=== PATIENT | female | born 1950 | race Caucasian/White ===

== ENCOUNTER 2018-08-18 00:48 | Outpatient (CLI) | payer MEDICARE, BC, SELFPAY ==
--- NOTE | 2018-08-18 13:02 | DI.RAD_ITS ---
SYMPTOMS/DIAGNOSIS: CHRONIC RT HIP PAIN, M25.551 RIGHT HIP AND PELVIS: Two views were obtained. There is virtually complete loss of the cartilaginous joint space of the right hip superiorly with marked subchondral sclerosis and cyst formation of the femoral head and acetabulum and flattening of the femoral head. CONCLUSION: Endstage DJD right hip. Mild DJD of the left hip noted as well.
== END 2018-08-18 01:08 ==
PROVIDERS: PCP Nurse Practitioner Family; Visit Provider Family Medicine
DX: M25.551 Pain in right hip (principal); M16.11 Unilateral primary osteoarthritis, right hip
CPT/HCPCS: 73502

== ENCOUNTER 2018-09-14 08:34 | Outpatient (CLI) | payer MEDICARE, BC, SELFPAY ==
--- NOTE | 2018-09-14 08:25 | DI.RAD_ITS ---
SYMPTOMS/DIAGNOSIS: OSTEOARTHRITIS, RIGHT HIP RIGHT HIP: A single view was obtained. There is loss of cartilaginous joint space superiorly with mildly laterally subluxed femoral head and marked subchondral sclerosis, cyst formation and deformity of the acetabulum and femoral head. CONCLUSION: Endstage DJD, right hip.
== END 2018-09-14 08:54 ==
PROVIDERS: PCP Nurse Practitioner Family; Referring Provider Nurse Practitioner Family; Visit Provider Student in an Organized Health Care Education/Training Program
DX: M25.551 Pain in right hip (principal); M16.11 Unilateral primary osteoarthritis, right hip
CPT/HCPCS: 99204; 99214; 73501

== ENCOUNTER 2018-10-12 09:39 | Outpatient (CLI) | payer MEDICARE, BC, SELFPAY ==
--- NOTE | 2018-10-12 11:28 | HPE_ITS ---
Assessment and Plan (1) Primary osteoarthritis of right hip: Current visit: Yes Status: Chronic Plan: Patient reported different leg lengths which was discussed with Dr. Talbot. Dr. Talbot educated patient he will attempt to length her right leg, however posterior approach makes leg lengthening more difficult to complete and is not guaranteed to provide complete resolution of leg length discrepancies. Patient will undergo right total hip replacement via posterior approach due to body habitus. Patient previously had x-rays with mag marker completed and therefore does not require additional x-rays for preoperative planning at today's visit. Discussed surgery including surgical technique, pertinent anatomy, benefits and risks including but not limited to risk of infection, blood clot, discrepancy in leg lengths, hip dislocation and damage to soft tissue/nerve/blood vessels with patient in detail. After discussion patient elects to continue to proceed with scheduling surgery. Educated patient on the risk of canceling surgery due to sores in the gluteal crease. Lesions will be assessed prior to surgery, if any lesions are open surgery will be cancelled. Patient understands and is agreeable to plan. She had opportunity to have questions answered to her satisfaction. Patient will take aspirin for DVT prophylaxis. Labs are pending at time of dictation. Patient will continue to be scheduled for right total hip replacement via posterior approach with Dr. Talbot on 10/21/18. (2) Hip pain, right: Current visit: Yes Status: Chronic (3) Psoriasis: Current visit: Yes Status: Chronic History of Present Illness Narrative: Ms. Chand is a 68-year-old female who presents to clinic with her niece Jes for preoperative visit for scheduled right ADELSO with Dr. Talbot on October 21, 2018. Patient reports started developing right hip pain greater than 3 years ago. Patient was initially referred to physical therapy where she was taught exercises and transition to home program that she continued to do regularly until summer 2017. Patient denies known injury but describes worse sherry right hip pain and feeling that the hip was letting go in February 2018. She continued to get a sharp stabbing sensation in the anterior aspect of her groin that is aggravated by walking. Patient reports she used to walk regularly and now has difficulty walking even a short distance. She continues to ambulate with a walker when at home and a cane when out of the house but describes walking slo wer due to pain. Patient also reports bilateral knee aching that has worsened since summer 2017. Pain is currently managed by meloxicam twice daily and Tylenol as needed which provides slight pain alleviation. 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 Denies any change in her right hip pain following injury. Denies falling directly on the hip. Previous x-rays with mag marker reveal right hip [id number] articulation, sclerosis, subchondral cysts as well as deformity of the acetabulum and femoral head as per Dr. Ivana zaman. Findings are consistent with severe DJD of the right hip. Pertinent Surgical Information Patient has long-standing history of psoriasis describes noticing itchy sensation within her gluteus crease approximately 1 month ago. Patient describes waking up in the morning to area of skin being open due to scratching throughout the night. Patient denies scratching the area during the day. She denies noticing discharge or blood. Patient denies any pain in that area. Patient has several year history of occasional episodes of diarrhea accompanied by occasional incontinence. Patient reports she does not experience abdominal pain with episodes of diarrhea. She denies any recent change in stool, last episode of diarrhea was greater than 1 week ago. Denies hematochezia, melena or mucus in stool. Denies past medical history of: stroke, cardiac issues, angina, asthma, COPD, sleep apnea, renal issues, liver issues, hepatitis, ulcers, bleeding disorders, seizures, migraines, anxiety, thyroid issues Denies prior complications from surgery or anesthesia. Review of Systems Constitutional Denies fever(s), Denies frequent falls and Denies headache(s) Eyes Denies change in vision ENT Denies dental pain, Denies dizziness, Denies headache(s), Denies epistaxis, Denies nasal congestion, Reports nasal discharge (Occasional clear nasal discharge based on environment due to allergies), Denies sinus pain and Denies sore throat Cardiovascular Denies chest pain, Denies rapid heart rate, Denies irregular heart rhythm, Denies dyspnea, Denies dyspnea on exertion and Denies slow heart rate Respiratory Denies dyspnea, Denies dyspnea on exertion and Denies wheezing Gastrointestinal Denies abdominal pain, Denies melena, Denies hematochezia, Denies constipation, Reports diarrhea, Denies nausea and Denies vomiting Genitourinary Denies hematuria, Denies dysuria and Denies urinary urgency Musculoskeletal Reports as per HPI, Denies numbness and Denies tingling Neurologic Denies dizziness, Denies frequent falls, Denies headache(s), Denies numbness and Denies tingling Psychiatric Denies anxiety and Reports depression Allergic/Immunologic Denies wheezing PFSH Medical History Psoriasis (Chronic) Primary osteoarthritis of right hip (Chronic) Hip pain, right (Chronic) Osteoarthritis (Acute 04/18/14) Obesity (Acute) Hyperlipidemia (Acute) Gout (Acute) GERD (gastroesophageal reflux disease) (Acute) Essential tremor (Acute 02/24/17) Essential hypertension (Acute) Depressive disorder (Acute) Allergic rhinitis (Acute 07/08/15) Surgical History Cholecystectomy Open Carpal Tunnel release Family History Mother Essential hypertension Hyperlipidemia Dementia Father Essential hypertension Dementia Sister Depression Hyperlipidemia Sister Essential hypertension Brother Essential hypertension Brother Essential hypertension Heart disease Hyperlipidemia Myocardial infarction Grandfather Essential hypertension Heart disease Stroke Grandfather Heart disease Grandmother Mental disorder Grandmother Phlebitis Social History Smoking/Tobacco Use Status: Never Meds Home Medications Medication Instructions Recorded Confirmed Type clobetasol 1 ann TOPICAL PRN script 02/14/14 10/12/18 History desonide 15 gm TOPICAL DAILY PRN script 01/01/15 09/14/18 History calcium carbonate 1,200 mg PO DAILY tab.chew 01/12/17 10/12/18 History multivitamin [One Daily 1 ea PO DAILY 01/12/17 10/12/18 History Multivitamin] allopurinol 100 mg PO DAILY #90 tab-cap 01/13/18 10/12/18 Rx fluoxetine 10 mg PO DAILY #90 tab-cap 01/13/18 10/12/18 Rx fluticasone 50 mcg NS BID #1 bottle 01/17/18 09/14/18 Rx meloxicam 1 tab PO BID #180 tab-cap 01/17/18 10/12/18 Rx omeprazole 20 mg PO DAILY #90 tab-cap 01/17/18 10/12/18 Rx lisinopril 10 mg PO DAILY #90 tab-cap 04/12/18 10/12/18 Rx turmeric root extract 538 mg 1,076 mg PO DAILY cap 08/17/18 09/14/18 History capsule acetaminophen 650 mg PO Q6H PRN 10/12/18 10/12/18 History atorvastatin 40 mg PO HS 10/12/18 10/12/18 History metoprolol tartrate 50 mg PO DAILY 10/12/18 10/12/18 History metoprolol tartrate [Lopressor] 100 mg PO HS 10/12/18 10/12/18 History Allergies Allergy/AdvReac Type Severity Reaction Status Date / Time Penicillins Allergy Intermediate Rash Unverified 10/12/18 12:20 Sulfa (Sulfonamide Allergy Intermediate Skin Rash Unverified 10/12/18 12:20 Antibiotics) Tetanus Vaccines and Toxoid Allergy Intermediate Localized Unverified 10/12/18 12:20 reaction Rash tetracycline Allergy Intermediate Skin Rash Unverified 10/12/18 12:20 nickel Allergy Mild Other (See Verified 10/12/18 12:20 Comment) Exam Const General: cooperative and no acute distress Nutritional Appearance: obese Other: Patient ambulates slowly with cane HENMT Head: normal to inspection, normocephalic and atraumatic Ears: external ears normal General nose exam: external nose normal and no nasal discharge Face and sinus: face symmetric Mouth: oral mucosae normal, lip normal, tongue normal and moist mucous membranes Teeth and gingiva: fair dentition Throat: posterior oropharynx normal Eyes General: appearance normal, both eyes and all related structures Pupils: PERRL EOM: EOM intact bilaterally Neck Neck: trachea midline Carotids: normal carotid upstroke Lymphatic: no lymphadenopathy noted Resp Effort & Inspection: normal respiratory effort and able to speak in complete sentences Auscultation: clear to auscultation bilaterally, no rales, no rhonchi and no wheezes Cardio Heart Sounds: S1 normal, S2 normal, no murmurs, no rubs and no other Pulses: radial pulses present bilaterally GI Inspection: large pannus and obesity Palpation: soft, no hepatosplenomegaly and nontender Auscultation: normal bowel sounds Skin General skin exam: excoriation(s) (Scabs and excoriations noted within gluteal c rease) Rashes: no rashes Extrem Other: Right hip examination: Skin is intact along posterior aspect of thigh and lateral aspect of the right buttocks. Areas of reddened dry skin within gluteal crease with numerous lesions (greater than 10) less than 5mm in diameter noted bilaterally on sides of the gluteal crease. Lesions are scabbed over without significant erythema or purulent discharge. No signs of ulcerations are noted. Active range of motion yields flexion from 90 degrees with external rotation elicited with movement, discomfort is elicited at end of range of motion. Passive range of motion yields internal rotation approximately 5 degrees, external rotation of 10 degrees and abduction of 10 degrees, discomfort is elicited in the anterior groin with all range of motion. Straight leg raise elicits discomfort in the anterior groin. Results Labs : 10/12/18 11:10 10/12/18 11:10
[2018-10-12 11:31] LABS: HCT 40.3 % (36.0-46.0); HGB 13.6 g/dL (12.0-15.5); Mean Corp. HGB Concentration 33.7 g/dL (32.0-36.0); Mean Corpuscular Hemoglobin 31.6 pg (27.0-33.0); Mean Corpuscular Volume 93.7 fL (80-95); Mean Platelet Volume 9.5 fL (8.0-11.0); Platelet Count 256 x1000/uL (130-400); RBC Distribution Width 13.2 % (11.7-14.6); White Blood Cell Count 10.41 k/cumm (4.4-10.8)
[2018-10-12 11:38] LABS: Hemoglobin A1C 5.7 % (4.5-6.2)
[2018-10-12 12:28] LABS: Anion Gap 9.6 mmol/L (3-11); BUN 15 mg/dL (7-18); CO2 28.4 mmol/L (21.0-32.0); CREATININE 0.51 mg/dL (0.55-1.02); Calcium 9.6 mg/dL (8.5-10.1); Chloride 104 mmol/L (98-107); Glucose 97 mg/dL (70-100); Potassium 4.2 mmol/L (3.5-5.1); Sodium 142 mmol/L (136-145)
== END 2018-10-12 09:59 ==
PROVIDERS: PCP Nurse Practitioner Family; Visit Provider Student in an Organized Health Care Education/Training Program
DX: M25.551 Pain in right hip (principal); M16.11 Unilateral primary osteoarthritis, right hip; K21.9 Gastro-esophageal reflux disease without esophagitis; E66.9 Obesity, unspecified; Z13.1 Encounter for screening for diabetes mellitus; Z01.818 Encounter for other preprocedural examination; I10 Essential (primary) hypertension
CPT/HCPCS: 36415; 80048; 85027; 86850; 86900; 86901; NC; 83036

== ENCOUNTER 2018-10-21 06:15 | Inpatient (IN) | payer MEDICARE, BC, SELFPAY ==
[2018-10-12 10:05] VITALS: BP 121/72; PULSE 74; RESP 18; TEMP 36.8; O2SAT 97
--- NOTE | 2018-10-12 10:49 | PDOC.CMPRO ---
- If Service Date Differs Date of service: 10/12/18 Time of Service: 10:49 Care Management Progress Note CM met with Mary Beth per request of DSU nursing. Mary Beth is scheduled for a right total hip procedure with Dr. Talbot on 10/21/2018. She resides with her brother in [place] and has a a niece who lives next door. Mary Beth reports that both her brother and niece are supportive and will assist her in her recovery following surgery. 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 She reports that she has been dealing with pain and her hip for many years and has a ramp, FWW, and cane that she uses to assist with ambulation. Mary Beth occasionally uses a wheelchair to ambulate in the community. Mary Beth will transport via private vehicle with a family member at discharge. CM will continue to offer support to patient, family, and care team regarding discharge planning and disposition.
--- NOTE | 2018-10-12 10:55 | CMPROGNOTE_ITS ---
- If Service Date Differs Date of service: 10/12/18 Time of Service: 10:49 Care Management Progress Note CM met with Mary Beth per request of DSU nursing. Mary Beth is scheduled for a right total hip procedure with Dr. Talbot on 10/21/2018. She resides with her brother in [place] and has a a niece who lives next door. Mary Beth reports that both her brother and niece are supportive and will assist her in her recovery following surgery. 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 She reports that she has been dealing with pain and her hip for many years and has a ramp, FWW, and cane that she uses to assist with ambulation. Mary Beth occasionally uses a wheelchair to ambulate in the community. Mary Beth will transport via private vehicle with a family member at discharge. CM will continue to offer support to patient, family, and care team regarding discharge planning and disposition.
[2018-10-21] VITALS (17 sets, daily range): BP systolic 96–137; BP diastolic 58–88; PULSE 54–90; RESP 12–18; TEMP 35.7–37.1; O2SAT 93–100
[2018-10-21] MEDS: Celecoxib 200 MG CAP 400 MG PO (06:37)
[2018-10-21] MEDS: Lactated Ringers 1,000 ML 80 ML IV ×3 (06:37→22:18)
[2018-10-21] MEDS: oxyCODONE-CR 10 MG TABCR PO (06:37)
[2018-10-21] MEDS: Acetaminophen 500 MG TAB 1000 MG PO (06:37)
[2018-10-21] MEDS: Bupivacaine 0.25% Pres-Free 30 ML VIAL (09:32)
[2018-10-21] MEDS: Normal Saline 20 ML VIAL (09:32)
[2018-10-21] MEDS: Ketorolac 30 MG/ML VIAL (09:32)
--- NOTE | 2018-10-21 10:30 | DI.RAD_ITS ---
SYMPTOM/DIAGNOSIS: S/P RT ADELSO RIGHT HIP: The patient is status post TKR. The postoperative images demonstrate a right hip prosthesis in excellent position. Surrounding bone intact.
--- NOTE | 2018-10-21 11:48 | NUR.NOTE ---
Nursing Note: Pt A&Ox3, VSS see worklist. HR reg, LS clear. denies pain. CMST's WNL aside from some mild tingling in feet. palpable pulses. Drsg c/d/i. Buttocks pink, blanchable, what look like scratches area to buttocks area appear to be healing. pannus skin intact. jessica wells. Pt oriented to room and call mclain.
--- NOTE | 2018-10-21 12:47 | ROE_ITS ---
DATE OF SURGERY: October 21, 2018 PREOPERATIVE DIAGNOSIS: Right hip DJD. POSTOPERATIVE DIAGNOSIS: Same. SURGERY: Right total hip arthroplasty, posterior approach. SURGEON: Lucho Talbot M.D. GRANULATOR MACHINE OPERATOR: BARBIE Schaeffer and BARBIE Lester ANESTHESIA: Spinal. ESTIMATED BLOOD LOSS: 200 cc's FINDINGS: There was significant arthritis seen of the right femoral head and the acetabulum. The fe moral head was sitting in a superior and lateral position. Hip replacement was performed and we atte mpted to add her length back on, as she was significantly shortened on the right side. IMPLANTS: 1. [place] 48 mm acetabular component. 2. 48 x 32 mm acetabular insert. 3. CORAIL standard collared size 12. 4. DePuy ALTRX ceramic head, 32 +1 mm COMPLICATIONS: None. DISPOSITION: The patient was awakened from sedation and taken to the PACU in a stable condition. INDICATION FOR PROCEDURE: Mary Beth is a 68-year-old who has had progressive and debilitating pain of her right hip. X-rays confirmed severe osteoarthritis with superior and lateral displacement. She had tried conservative options and was significantly limited. Therefore I offered a hip replacement. I reviewed the technical details. I also reviewed the risks to include bleeding, infection, pain, stif fness, damage to nerves and vessels, damage to muscles and tendons, dislocations, leg length discrepa ncy, blood clot. Despite these risks, she elected to proceed. PROCEDURE DESCRIPTION: Mary Beth was greeted in the preoperative holding area. Her identity was confirme d and the correct side was identified and marked. The consent was reviewed with the patient and sign ed. The history and physical was updated. She was taken back to the operating room. In the seated position, a spinal anesthetic was administered. After successful administration of the spinal anesth etic, she was then placed into the left lateral decubitus position with the right hip up in the air. A beanbag was used for positioning. This was molded against her torso. Her body was positioned as perpendicular to the floor as possible. The beanbag was deflated, securing her to the table. She wa s also strapped as well. All bony prominences were well-padded, including the lateral left leg, the downside. An axillary roll was placed. Her arms were positioned around pillows. Her head was in a neutral position. Prophylactic antibiotics in the form of Cefazolin were given. One gram of Tranexa juaquin acid was given. The right leg was prepped with ChloraPrep and draped in a standard fashion. A t xavier-out was performed for safe surgery. A standard 12 mm incision was made overlying the posterolateral aspect of the right hip. This was ce ntered over the tip of the greater trochanter. This was taken down sharply through the level of the skin. The subcutaneous fat was also divided sharply. Bovie electrocautery was used for any bleeding . The IT band and gluteus fascia were identified. This was incised. Using both scissors and knife, I cut into the IT band extending distally, as well as extending proximally to the gluteus musculatur e. A Charnley retractor was placed deep in this level and we were able to identify the posterior asp ect of the greater trochanter. Bursal tissue overlying the posterolateral proximal femur was dissect ed and resected. The short external rotators were identified. A Oliva elevator was placed between th e piriformis and the gluteus minimus. This was placed over the top of the hip capsule. A posterior peel was then performed, elevating off the short external rotators and the capsule in one thick flap. This was fully resected off the proximal femur and tagged with marking sutures in the piriformis te ndon, as well as the conjoined tendon. This tissue was dissected off the femoral neck to expose the posterior aspect of the femoral neck down toward the lesser trochanter. A portion of quadratus femor is was also resected. The hip was then dislocated quite easily. The femur was noted to be subluxed in a lateral position. There were notable osteophytes seen throughout the entirety of the femoral ne ck and head. Based on preoperative templates, I performed the neck cut. The femoral head was remove d and measured as a size 43 mm head. Retractors were placed around the acetabulum both anteriorly an d posteriorly. The labrum was resected sharply. The contents of the cotyloid fossa were resected. The reaming started at a size 43 mm reamer and yahir t up to a size 48 mm reamer. The initial reaming was focused to stay inferior and central. The succ essive reamers then went up to the more anatomic position. The pelvis was quite small. I made sure to preserve any anterior and posterior espinoza. There was some exposure of the lateral acetabular comp onent given the shallow cup. The 48 had excellent fit and fill. Therefore I selected the 48 mm DePu y [place] acetabular component. The acetabular bed was irrigated. A periarticular cocktail consist ing of 50 cc's of normal saline, 266 mg of Exparel, 30 mg of Ketorolac and 0.1 mg of Clonidine were t hen injected into the periacetabular tissues. The acetabular component was then impacted into an marcela tomic position of approximately 45 degrees of abduction and 20 degrees of anteversion. The transvers e acetabular ligament was also used as a guide, as well as the natural bony espinoza of the acetabulum. There was some overhang of the acetabular component and it was well-seated. Given the overhang, I d id decide to place screws. The handle was removed and the acetabular component appeared to be stable , but I proceeded with screw placement. Two screws were placed. These were both aimed posteriorly a nd were palpated to be bicortical. 20 mm screws were placed. They had excellent fixation. The 48 x 32 mm DePuy acetabular liner was then impacted into position and confirmed to be well-seated. The r etractors were then removed. The leg was brought into a position of flexion and internal rotation. The femur was elevated and the proximal femur was exposed. A rongeur was used to clean out the later al neck remnants. A box osteotome was used to initiate the starting path of the broaching system. T his was made sure to stay in about 20 degrees of anteversion. Starting with a size 8 CORAIL broach, I broached the proximal femur up to a size 11. This brought me down to my cut level based on preoper ative templates. With the size [address], I then placed a standard neck with a +1 head. This was again based on the preoperative templates. The hip was then reduced without significant difficulty. The preoperative leg lengths were quite short on the right side. My goal was to add at least 1 cm. The reduction was not terribly difficult, but it was tight. She was more notably tight in external rotation; there was significant tightness of the anterior capsule. I did perform a gentle release of some of the capsule from the anterior aspect of the trochanter and the anterior proximal femur. Thi s did seem to improve her ability to extend and externally rotate. The leg lengths appeared to be st ill slightly short, but much closer than it was from the preoperative status. The hip was stable up to 90 degrees of flexion and 45 degrees of internal rotation. The short external rotators were able to be reapproximated to the posterior aspect of the greater trochanter. The hip was then dislocated and the trial head and neck were removed. The broach was inspected and it looked to have still a lit tle bit of movement into it, so therefore I broached up to a size 12 using the same cut level as my r eference point. This had excellent fit and fill to the proximal femur. This broach was then removed and a size 12 CORAIL standard collared femoral implant was inserted with light mallet blows. This w as able to be seated all the way down onto the cut surface of the femur. The wound was again irrigat ed. The periarticular cocktail was injected around the proximal femur and the soft tissues around th e proximal femur. The hip was then reduced. It was noted to be stable without shuck and with disloc ation at about 90 degrees of flexion and 45 or 50 degrees of internal rotation with adduction. The l eg was brought into some slight external rotation and abduction. Three drill holes were placed over the posterior aspect of the greater trochanter. Sutures previously placed upon entering the hip were then brought through the holes and tied over the proximal femur, greater trochanter. This nicely re approximated the piriformis tendon as well as the short external rotators to the posterior aspect of the greater trochanter. The interval with capsule and gluteus minimus and piriformis was then reappr oximated with a #2 FiberWire. The quadratus femoris was reattached with a #2 FiberWire. This had ex cellent posterior capsular repair. This was tested and was stable to about 20 degrees of internal ro tation. The wound was then irrigated. The Charnley retractor was removed. The deep tissues, includ ing the IT band, the TSL and the gluteus musculature were injected with the cocktail. The IT band an d gluteus fascia were approximated with a #1 Vicryl followed by a #2 Stratafix. The deep tissues wer e once again irrigated. The fat and subcutaneous layers were closed with a #0 and a #2-0 Vicryl. Th e skin was closed with a running #4-0 Monocryl. A Mepilex silver dressing was applied. The drapes w ere removed and legs were placed in an abduction pillow. She was then transitioned to the supine pos ition on the hospital bed without difficulty. At the end of the case all counts were correct. There were no notable complications.
--- NOTE | 2018-10-21 13:42 | PT.INIE ---
Date of service: 10/21/18 Time of Service: 13:42 PT Notes Inpatient Physical Therapy Evaluation Date: 10/13/2018 Referring Doctor: Lucho Talbot MD PT Orders: PT CONSULT: s/p R ADELSO?posterior WBAT?needs wider than hips Precautions: Posterior total hip precautions right lower extremity, WBAT RLE Patient Profile/Admitting Diagnosis: Patient is a 68-year-old female s/p right posterior total hip arthroplasty by Dr. Talbot 10/21/2018 PMHX: Vision deficits wears glasses, osteoarthritis right hip, obesity, psoriasis gluteal creases, essential tremor, gout, carpal tunnel release, hyperlipidemia, hypertension, depression, allergic rhinitis, cholecystectomy Social History/Home Situation: Lives in trailer with her brother, ramp to enter no stairs. Baseline mobility household distances with 4 wheel walker, independent with ADLs. Equipment Owned/DME: 4WW, cane, wheelchair Subjective: Patient lying in bed alert and agreeable to PT consult. Objective: General Observation: Abduction pillow lower extremities for hip precautions, IV right upper extremity, Palacios catheter Mental Status: A and O x3 Pain: No complaints of pain Precautions: Patient issued and instructed in posterior ADELSO precautions including no hip flexion past 90 degrees, no crossing legs keeping knees wider than hips, no internal rotation right lower extremity. Patient has preop ADELSO packet with precautions and home exercise program issued covering posterior ADELSO positioning. Patient issued hip kit for adaptive equipment which included long handled sponge, nuclear pharmacist, elastic shoelaces, sock aid, dressing stick, long handled shoe horn. Patient verbally instructed in use of each adaptive device and verbal demonstration provided. Patient verbal verbalized understanding of adaptive equipment. Reports she has slip on shoes and does not wear socks at home so donning and doffing shoes should not be a problem. OT consult requested from this morning for patient to be seen this afternoon, order has not been received yet. Bed Mobility/Transfers: *Abduction pillow in place between legs patient instructed in use of abduction pillow for sleeping at night and maintaining hip precautions Supine to sit: HOB 30 degrees, independent Sit to stand: SBA with 4 wheel walker Stand to sit: SBA Sit to supine: HOB flat, independent Gait: SBA with 4 wheel walker 70 feet x2, WBAT RLE, steady step through gait pattern reporting no pain with weightbearing. Patient returned to bed after gait session completed. Therex: Patient has issued ADELSO home exercise program, initiated ankle pumps, quad sets, glutes sets x20 reps bilaterally. Instructed to perform every 2 hours this evening. Balance: Static Sitting: Normal Dynamic Sitting: Normal Static Standing: Fair Dynamic Standing: Fair Special Tests: Mobility Limitations Standardized Measure [facility] AM-PAC 6 clicks Basic Mobility Inpatient Short Form: Raw Score: 18 standardized Score: 43.63 CMS Score: 46.58% CMS Modifier: CK Informed Consent/Education: Patient instructed in purpose of PT consult and plan of care. Assessment: Patient is a 68-year-old female s/p right posterior total hip arthroplasty by Dr. Talbot 10/21/2018 in setting of vision deficits wears glasses, osteoarthritis right hip, obesity, psoriasis gluteal creases, essential tremor. Patient presents with the following impairment level findings: Weakness right hip, decreased strength with standing transfers and gait mobility requiring 4 wheel walker for stability postoperatively, decreased static and dynamic standing balance requiring 4 wheel walker for stability. Patient was able to mobilize out of bed and gait training hallway this afternoon with no pain, able to initiate therapeutic exercise for ADELSO and educated in ADELSO precautions and positioning. Recommend nursing mobilize this evening, we will see for follow-up therapy session in a.m. anticipate return to home setting tomorrow when medically cleared. Impairments are contributing to the following functional limitations: AMPAC score CMS Score: 46.58% Patient is assessed as Moderate 54922 complexity based on the following: History: See above Examination: See above Presentation: Evolving Decision Making: AMPAC score CMS Score: 46.58% Goals: Goals X1 week 1. Supine-Sit: Independent 2. Sit-Supine: Independent 3. Sit-Stand: Supervision with 4 wheel walker 4. Stand-Sit: Independent 5. Bed-Chair: Supervision with 4 wheel walker 6. Chair-Bed: Supervision with 4 wheel walker 7. Gait: Supervision with 4 wheel walker 80 feet x2, WBAT RLE 8. Independent with home exercise program 9. Patient independent with 3/3 ADELSO precautions Plan of Care/Treatment Plan: 1-2x/day, 7 days/week x 1 week. Plan of care has been reviewed with the COMIC BOOK DESIGNER providing the service under Physical Therapy direction. Initiate Physical Therapy intervention for strengthening, bed mobility, transfers, gait, stairs, balance training, use of assistive device. DISCHARGE RECOMMENDATIONS: Home, patient has all DME TREATMENT CODE/TIME: 32 minutes IE 1350 G Codes in the area mobility of walking and moving around: current status [id number] -CK; projected status GP [id number]. Discharge status (if discharging) GP [id number] CK based on [facility] score CMS Score: 46.58% Chiqui Luna PT Disclaimer: This note was created using [employer] voice recognition software. It was reviewed for major content. However, there may be multiple small discrepancies and errors due to the voice recognition aspects of the software.
--- NOTE | 2018-10-21 13:50 | IN_ITS ---
Date of service: 10/21/18 Time of Service: 13:42 PT Notes Inpatient Physical Therapy Evaluation Date: 10/13/2018 Referring Doctor: Lucho Talbot MD PT Orders: PT CONSULT: s/p R ADELSO?posterior WBAT?needs wider than hips Precautions: Posterior total hip precautions right lower extremity, WBAT RLE Patient Profile/Admitting Diagnosis: Patient is a 68-year-old female s/p right posterior total hip arthroplasty by Dr. Talbot 10/21/2018 PMHX: Vision deficits wears glasses, osteoarthritis right hip, obesity, psoriasis gluteal creases, essential tremor, gout, carpal tunnel release, hyperlipidemia, hypertension, depression, allergic rhinitis, cholecystectomy Social History/Home Situation: Lives in trailer with her brother, ramp to enter no stairs. Baseline mobility household distances with 4 wheel walker, independent with ADLs. Equipment Owned/DME: 4WW, cane, wheelchair Subjective: Patient lying in bed alert and agreeable to PT consult. Objective: General Observation: Abduction pillow lower extremities for hip precautions, IV right upper extremity, Palacios catheter Mental Status: A and O x3 Pain: No complaints of pain Precautions: Patient issued and instructed in posterior ADELSO precautions including no hip flexion past 90 degrees, no crossing legs keeping knees wider than hips, no internal rotation right lower extremity. Patient has preop ADELSO packet with precautions and home exercise program issued covering posterior ADELSO positioning. Patient issued hip kit for adaptive equipment which included long handled sponge, assistant administrator, elastic shoelaces, sock aid, dressing stick, long handled shoe horn. Patient verbally instructed in use of each adaptive device and verbal demonstration provided. Patient verbal verbalized understanding of adaptive equipment. Reports she has slip on shoes and does not wear socks at home so donning and doffing shoes should not be a problem. OT consult requested from this morning for patient to be seen this afternoon, order has not been received yet. Bed Mobility/Transfers: *Abduction pillow in place between legs patient instructed in use of abduction pillow for sleeping at night and maintaining hip precautions Supine to sit: HOB 30 degrees, independent Sit to stand: SBA with 4 wheel walker Stand to sit: SBA Sit to supine: HOB flat, independent Gait: SBA with 4 wheel walker 70 feet x2, WBAT RLE, steady step through gait pattern reporting no pain with weightbearing. Patient returned to bed after gait session completed. Therex: Patient has issued ADELSO home exercise program, initiated ankle pumps, quad sets, glutes sets x20 reps bilaterally. Instructed to perform every 2 hours this evening. Balance: Static Sitting: Normal Dynamic Sitting: Normal Static Standing: Fair Dynamic Standing: Fair Special Tests: Mobility Limitations Standardized Measure [facility] AM-PAC 6 clicks Basic Mobility Inpatient Short Form: Raw Score: 18 standardized Score: 43.63 CMS Score: 46.58% CMS Modifier: CK Informed Consent/Education: Patient instructed in purpose of PT consult and plan of care. Assessment: Patient is a 68-year-old female s/p right posterior total hip arthroplasty by Dr. Talbot 10/21/2018 in setting of vision deficits wears glasses, osteoarthritis right hip, obesity, psoriasis gluteal creases, essential tremor. Patient presents with the following impairment level findings: Weakness right hip, decreased strength with standing transfers and gait mobility requiring 4 wheel walker for stability postoperatively, decreased static and dynamic standing balance requiring 4 wheel walker for stability. Patient was able to mobilize out of bed and gait training hallway this afternoon with no pain, able to initiate therapeutic exercise for ADELSO and educated in ADELSO precautions and positioning. Recommend nursing mobilize this evening, we will see for follow-up therapy session in a.m. anticipate return to home setting tomorrow when medically cleared. Impairments are contributing to the following functional limitations: AMPAC score CMS Score: 46.58% Patient is assessed as Moderate [id number] complexity based on the following: History: See above Examination: See above Presentation: Evolving Decision Making: AMPAC score CMS Score: 46.58% Goals: Goals X1 week 1. Supine-Sit: Independent 2. Sit-Supine: Independent 3. Sit-Stand: Supervision with 4 wheel walker 4. Stand-Sit: Independent 5. Bed-Chair: Supervision with 4 wheel walker 6. Chair-Bed: Supervision with 4 wheel walker 7. Gait: Supervision with 4 wheel walker 80 feet x2, WBAT RLE 8. Independent with home exercise program 9. Patient independent with 3/3 ADELSO precautions Plan of Care/Treatment Plan: 1-2x/day, 7 days/week x 1 week. Plan of care has been reviewed with the RADIOPHARMACIST providing the service under Physical Therapy direction. Initiate Physical Therapy intervention for strengthening, bed mobility, transfers, gait, stairs, balance training, use of assistive device. DISCHARGE RECOMMENDATIONS: Home, patient has all DME TREATMENT CODE/TIME: 32 minutes IE 1350 G Codes in the area mobility of walking and moving around: current status [id number] -CK; projected status GP Q1015-BD. Discharge status (if discharging) GP G8980 CK based on [facility] score CMS Score: 46.58% Chiqui Luna PT Disclaimer: This note was created using [employer] voice recognition software. It was reviewed for major content. However, there may be multiple small discrepancies and errors due to the voice recognition aspects of the software.
[2018-10-21] MEDS: Acetaminophen 325 MG TAB 650 MG PO ×2 (14:15→22:20)
[2018-10-21] MEDS: oxyCODONE 5 MG TAB PO (14:15)
--- NOTE | 2018-10-21 16:39 | PDOC.CMIN ---
- If Service Date Differs Date of service: 10/21/18 Time of Service: 16:39 Care Management Initial Assess REASON FOR HOSPITALIZATION:: Right Total Hip Arthroplasty. PAST MEDICAL HISTORY/PAST SURGICAL HISTORY:: Psoriasis, osteoarthritis, obesity, hyperlipidemia, gout, GERD, essential tremor, essential hypertension, depressive disorder, allergic rhinitis. PREVIOUS FUNCTIONAL STATUS/SOCIAL/FAMILY SUPPORTS:: Mary Beth resides with her brother in [place] and has a a niece who lives next door. Mary Beth reports that both her brother and niece are supportive and will assist her in her recovery following surgery. 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 She reports that she has been dealing with pain and her hip for many years and has a ramp, FWW, and cane that she uses to assist with ambulation. Mary Beth occasionally uses a wheelchair to ambulate in the community. Mary Beth will transport via private vehicle with a family member at discharge. will continue to offer support to patient, family, and care team regarding discharge planning and disposition. CURRENT FUNCTIONAL STATUS:: Mary Beth is lying in bed when CM visits this morning. She is engaged in conversation and makes good eye contact. Mary Beth reports that her pain is minimal and she has been working well with PT. Mary Beth reports that she has no reservations about returning home as she has good support. She has a FWW so will not be needing equipment at discharge. Her lopez is in place; anticipate d/c today with voiding trial prior to discharge from hospital. ADVANCE DIRECTIVES:: None on file at [facility]. Has patient been provided with information about the portal?: Yes Did the patient sign up for the portal?: No CODE STATUS:: Full Code INSURANCE COVERAGE / FINANCIAL ISSUES:: Blue Cross Blue Shield, Medicare. CURRENT HOME/COMMUNITY SERVICES/EQUIPMENT:: No current home or community services. FWW, wheelchair, ramp. PRIMARY CARE PHYSICIAN:: Diana Yao. POTENTIAL DISCHARGE NEEDS:: Follow up appointment with surgical services. PATIENT/FAMILY EDUCATION NEEDS:: Discharge education, any limitations, and follow up plan of care. Ask Me Three discussion. ANTICIPATED BARRIERS TO DISCHARGE:: No anticipated barriers to discharge. TRANSPORTATION:: Mary Beth will transport via private vehicle with a family member. PLAN:: Mary Beth will discharge home when medically ready per MD. Anticipate patient will discharge with no services and follow up with surgical services. CM will continue to offer support to patient, family, and care team regarding discharge planning and disposition.
--- NOTE | 2018-10-21 16:51 | INITIAL_ITS ---
- If Service Date Differs Date of service: 10/21/18 Time of Service: 16:39 Care Management Initial Assess REASON FOR HOSPITALIZATION:: Right Total Hip Arthroplasty. PAST MEDICAL HISTORY/PAST SURGICAL HISTORY:: Psoriasis, osteoarthritis, obesity, hyperlipidemia, gout, GERD, essential tremor, essential hypertension, depressive disorder, allergic rhinitis. PREVIOUS FUNCTIONAL STATUS/SOCIAL/FAMILY SUPPORTS:: Mary Beth resides with her bro ther in [place] and has a a niece who lives next door. Mary Beth reports that both her brother and niece are supportive and will assist her in her recovery following surgery. 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 She reports that she has been dealing with pain and her hip for many years and has a ramp, FWW, and cane that she uses to assist with ambulation. Mary Beth occasionally uses a wheelchair to ambulate in the community. Mary Beth will transport via private vehicle with a family member at discharge. will continue to offer support to patient, family, and care team regarding discharge planning and disposition. CURRENT FUNCTIONAL STATUS:: Mary Beth is lying in bed when CM visits this morning. She is engaged in conversation and makes good eye contact. Mary Beth reports that her pain is minimal and she has been working well with PT. Mary Beth reports that she has no reservations about returning home as she has good support. She has a FWW so will not be needing equipment at discharge. Her lopez is in place; anticipate d/c today with voiding trial prior to discharge from hospital. ADVANCE DIRECTIVES:: None on file at [facility]. Has patient been provided with information about the portal?: Yes Did the patient sign up for the portal?: No CODE STATUS:: Full Code INSURANCE COVERAGE / FINANCIAL ISSUES:: Blue Cross Blue Shield, Medicare. CURRENT HOME/COMMUNITY SERVICES/EQUIPMENT:: No current home or community services. FWW, wheelchair, ramp. PRIMARY CARE PHYSICIAN:: Diana Yao. POTENTIAL DISCHARGE NEEDS:: Follow up appointment with surgical services. PATIENT/FAMILY EDUCATION NEEDS:: Discharge education, any limitations, and follow up plan of care. Ask Me Three discussion. ANTICIPATED BARRIERS TO DISCHARGE:: No anticipated barriers to discharge. TRANSPORTATION:: Mary Beth will transport via private vehicle with a family member. PLAN:: Mary Beth will discharge home when medically ready per MD. Anticipate patient will discharge with no services and follow up with surgical services. CM will continue to offer support to patient, family, and care team regarding discharge planning and disposition.
[2018-10-21] MEDS: Aspirin E.C. 81 MG TABEC PO (19:56)
[2018-10-21] MEDS: Metoprolol 50 MG TAB 100 MG PO (21:45)
[2018-10-21] MEDS: Atorvastatin 40 MG TAB PO (21:45)
[2018-10-21] MEDS: Normal Saline Flush 10 ML SYR IV (21:46)
[2018-10-22] MEDS: oxyCODONE 5 MG TAB PO (00:30)
[2018-10-22 03:57] VITALS: BP 113/72; PULSE 93; RESP 18; TEMP 37.3; O2SAT 95
[2018-10-22 07:06] LABS: HCT 36.5 % (36.0-46.0); HGB 12.3 g/dL (12.0-15.5); Mean Corp. HGB Concentration 33.7 g/dL (32.0-36.0); Mean Corpuscular Hemoglobin 31.8 pg (27.0-33.0); Mean Corpuscular Volume 94.3 fL (80-95); Mean Platelet Volume 9.8 fL (8.0-11.0); Platelet Count 204 x1000/uL (130-400); RBC 3.87 m/cumm (4.00-5.20); RBC Distribution Width 12.9 % (11.7-14.6); White Blood Cell Count 8.48 k/cumm (4.4-10.8)
[2018-10-22 07:20] LABS: Anion Gap 5.2 mmol/L (3-11); BUN 10 mg/dL (7-18); CO2 27.8 mmol/L (21.0-32.0); CREATININE 0.51 mg/dL (0.55-1.02); Calcium 8.9 mg/dL (8.5-10.1); Chloride 105 mmol/L (98-107); Glucose 113 mg/dL (70-100); Potassium 3.6 mmol/L (3.5-5.1); Sodium 138 mmol/L (136-145)
[2018-10-22 08:12] VITALS: BP 146/80; PULSE 95; RESP 20; TEMP 37; O2SAT 95
[2018-10-22] MEDS: Aspirin E.C. 81 MG TABEC PO (08:13)
[2018-10-22] MEDS: Acetaminophen 325 MG TAB 650 MG PO (08:14)
[2018-10-22] MEDS: Metoprolol 50 MG TAB PO (08:14)
[2018-10-22] MEDS: Allopurinol 100 MG TAB PO (08:15)
[2018-10-22] MEDS: Multivitamin TAB 1 TAB PO (08:15)
[2018-10-22] MEDS: FLUoxetine 10 MG TAB PO (08:16)
[2018-10-22] MEDS: Docusate Sodium 100 MG CAP PO (08:16)
[2018-10-22] MEDS: Dexamethasone 4 MG TAB PO (08:17)
[2018-10-22] MEDS: Calcium Carbonate 1.5 GM TAB 3 GM PO (08:17)
[2018-10-22] MEDS: Lisinopril 10 MG TAB PO (08:17)
[2018-10-22] MEDS: Omeprazole 20 MG CAPCR PO (08:17)
--- NOTE | 2018-10-22 09:44 | DSE_ITS ---
Date of service: 10/22/18 Time of Service: 09:43 DS: Diagnosis Discharge Diagnosis (1) Primary osteoarthritis of right hip: Status: Chronic Discharge Plan Disposition Patient Disposition: HOME Condition: Good Discharge Details Reason For Visit: RIGHT HIP DJD Admit Date/Time: 10/21/18 06:15 Admit Provider: Lucho Talbot Attending Provider: Lucho Talbot [facility] Course: Patient was admitted to the medical/surgical floor following the procedure. It was tolerated well without any notable medical, surgical, or anesthetic complications. Mobilization began postoperatively. The lopez catheter was removed and voiding spontaneously. Vitals were stable. Physical therapy worked with the patient and was cleared for discharge home. No acute medical issues. Home Meds and New Rx's Prescriptions: New oxycodone 5 mg tablet 5 mg PO Q4H Qty: 10 RF: 0 aspirin 81 mg tablet,delayed release (DR/EC) 81 mg PO BID Qty: 80 RF: 0 Continued turmeric root extract 538 mg capsule 1,076 mg PO DAILY RF: 0 clobetasol 50 ML solution 1 ann Topical PRN RF: 0 desonide 15 GM cream 15 gm Topical DAILY PRNRF: 0 multivitamin [One Daily Multivitamin] 1 EACH tablet 1 ea PO DAILY RF: 0 calcium carbonate 500 MG tablet,chewable 1,200 mg PO DAILY RF: 0 allopurinol 100 MG tablet 100 mg PO DAILY Qty: 90 RF: 4 fluoxetine 10 MG capsule 10 mg PO DAILY Qty: 90 RF: 4 omeprazole 20 MG capsule,delayed release(DR/EC) 20 mg PO DAILY Qty: 90 RF: 4 fluticasone 16 GM spray,suspension 50 mcg NS BID Qty: 1 RF: 4 lisinopril 10 MG tablet 10 mg PO DAILY Qty: 90 RF: 3 metoprolol tartrate [Lopressor] 100 mg Tablet 100 mg PO HS RF: 0 atorvastatin 40 MG tablet 40 mg PO HS RF: 0 metoprolol tartrate 50 MG tablet 50 mg PO DAILY RF: 0 acetaminophen 325 mg Tablet 650 mg PO Q6H PRNQty: 90 RF: 3 meloxicam 7.5 MG tablet 1 tab PO BID Qty: 180 RF: 4 Discharge Instructions Additional Instructions: Dr. Talbot?s Total Hip Discharge Instructions Activity: The most important activity is to walk. You should try to take short walks a few times a day. There is a slight risk of dislocation so it is important that you are mindful of your precautions - knees wider than hips and no twisting. You will find some stiffness and weakness at first. Do not try to strengthen this too early, continue to practice walking and stairs and this will come. Use the first two weeks to walk and move as much as possible within your home. - Outpatient physical therapy can be helpful to help return you to a normal gait and improve your flexibility and strength. This can start around 2 weeks. For some patients, it?s not necessary. Usually this is determined at the time of discharge or at the first post-operative visit. - You should wear the LYN hose on both legs for 4 weeks. Dressing: Keep the surgical dressing in place for at least one week. After the first week it may be removed and replace with light gauze and tape or nothing. It may get wet after 3 days but avoid soaking the dressing. If it gets wet, just lightly pat dry. Medications: - You should take Tylenol and an anti-inflammatory meloxicam as your primary pain control medications - You have been prescribed a stronger pain medication oxycodone for breakthrough pain, take as needed as prescribed. - You resume your stomach acid reduction agent, omeprazole, to help reduce stomach acid and reflux. - You will be taking aspirin 81mg twice a day for DVT prevention unless instructed otherwise. - If you have constipation you should take Colace or Miralax (both [id number]). It takes most people 3-4 days to have a bowel movement. Follow-up: 2 weeks Referrals: Lucho Talbot MD [ [facility] STAFF PHYSICIAN] - Activity:: Activity as Tolerated Equipment/Supplies:: Walker Diet:: As Tolerated Discharge Orders Discharge Orders: Discharge Order (Routine); Ordered 10/22/18 Ordered By: Lucho Talbot DS: Data Vitals/I&O Vitals and I&O: Vital Signs Temperature 37 C 10/22/18 08:12 Temperature Source Tympanic 10/22/18 08:12 Pulse 95 H 10/22/18 08:12 Pulse Rhythm Regular 10/22/18 08:05 Respiratory Rate 20 10/22/18 08:12 Respiratory Effort Non-Labored 10/22/18 08:05 Respiratory Depth Normal 10/22/18 08:05 Respiratory Pattern Normal 10/22/18 08:05 Blood Pressure 146/80 H 10/22/18 08:12 Pulse Oximetry 95 10/22/18 08:12 Respiratory End-tidal CO2 40 10/21/18 10:56 Oxygen Delivery Method Room Air 10/22/18 08:12 Oxygen Flow Rate 0 10/22/18 08:12 Pain Level 3 10/22/18 00:30 Comment 10/22/18 08:12 Intake & Output 10/21/18 10/21/18 10/22/18 11:59 23:59 11:59 Intake Total 1270 / 2560 1290 / 2560 200 / 200 Output Total 220 / 270 50 / 270 750 / 750 Balance 1050 / 2290 1240 / 2290 -550 / -550 Weight 97.3 kg Intake: IV 1270 / 2320 1050 / 2320 100 / 100 Oral 240 / 240 100 / 100 Output: Urine 20 / 70 50 / 70 750 / 750 Estimated Blood Loss 200 / 200 Other: Urine Color Yellow Dark Savana Yellow Urine Appearance Clear Clear Clear Comment NOT EMPTIED IN PACU <100 CC from 0210 to 0630 Emesis Description None Labs on day of discharge: Labs from last 24 hours 10/22/18 10/22/18 06:45 06:45 WBC 8.48 RBC 3.87 L Hgb 12.3 Hct 36.5 MCV 94.3 MCH 31.8 MCHC 33.7 RDW 12.9 Plt Count 204 MPV 9.8 Sodium 138 Potassium 3.6 Chloride 105 Carbon Dioxide 27.8 Anion Gap 5.2 BUN 10 Creatinine 0.51 L Estimated GFR/1.73 m2 >= 60.00 Glucose 113 H Calcium 8.9 PFSH Medical History Psoriasis (Chronic) Primary osteoarthritis of right hip (Chronic) Hip pain, right (Chronic) Osteoarthritis (Acute 04/18/14) Obesity (Acute) Hyperlipidemia (Acute) Gout (Acute) GERD (gastroesophageal reflux disease) (Acute) Essential tremor (Acute 02/24/17) Essential hypertension (Acute) Depressive disorder (Acute) Allergic rhinitis (Acute 07/08/15) Surgical History Cholecystectomy Open Carpal Tunnel release Family History Mother Essential hypertension Hyperlipidemia Dementia Father Essential hypertension Dementia Sister Depression Hyperlipidemia Sister Essential hypertension Brother Essential hypertension Brother Essential hypertension Heart disease Hyperlipidemia Myocardial infarction Grandfather Essential hypertension Heart disease Stroke Grandfather Heart disease Grandmother Mental disorder Grandmother Phlebitis Social History Smoking/Tobacco Use Status: Never
--- NOTE | 2018-10-22 10:00 | PDOC.CMDIS ---
- If Service Date Differs Date of service: 10/22/18 Time of Service: 10:00 LACE Index Scoring Tool - Questions: Length of Stay (in days): 2 Acuity (Admit via E.D.?): No E.D. Visits: 0 - Answers: Total Score: 2 Risk of Readmission: Low Risk Care Management Discharge Reason for Hospitalization: Right Total Hip Arthroplasty. Discharge Plan: Mary Beth will discharge home when medically ready per MD. Anticipate no services and follow up with surgical services in two weeks. Mary Beth will transport with family via private vehicle. Patient/Family Education Needs: Discharge education, any limitations, and follow up plan of care. Ask Me Three discussion.
--- NOTE | 2018-10-22 12:08 | PT.INTREAT ---
Date of service: 10/22/18 Time of Service: 12:08 PT Notes Inpatient Physical Therapy Treatment Note Date: 10/22/18 PRECAUTIONS: WBAT on R, posterior ADELSO precautions SUBJECTIVE: Mary Beth states that she has been moving well, that she walked out in the [place] with nursing last night. She feels she is able to discharge safely to home today. OBJECTIVE: PAIN: No complaints of pain BED MOBILITY/TRANSFERS Supine-sit: I with HOB flat and use of leg wood preserving plant laborer Sit-supine: I with HOB flat and use of leg wood preserving plant laborer Sit-stand: S Stand-sit: S Chair-bed: SBA GAIT Assistive Device: 4WW Weight bearing: WBAT on R Assist: SBA Distance: 150' THEREX: Patient completed a lower extremity strengthening program, as per flow sheet. ASSESSMENT: Patient tolerated session well with no complaints of pain. Patient was able to tolerate a progression in her gait distance with 4WW report and SBA. Patient was able to demonstrate independence with bed mobility and transfers with use of leg lifters to maintain precautions. PLAN: As per primary PT TREATMENT CODE/TIME: 25 minutes; TA/TP
--- NOTE | 2018-10-22 12:13 | PTTR_ITS ---
Date of service: 10/22/18 Time of Service: 12:08 PT Notes Inpatient Physical Therapy Treatment Note Date: 10/22/18 PRECAUTIONS: WBAT on R, posterior ADELSO precautions SUBJECTIVE: Mary Beth states that she has been moving well, that she walked out in the [place] with nursing last night. She feels she is able to discharge safely to home today. OBJECTIVE: PAIN: No complaints of pain BED MOBILITY/TRANSFERS Supine-sit: I with HOB flat and use of leg real estate agent/broker Sit-supine: I with HOB flat and use of leg real estate agent/broker Sit-stand: S Stand-sit: S Chair-bed: SBA GAIT Assistive Device: 4WW Weight bearing: WBAT on R Assist: SBA Distance: 150' THEREX: Patient completed a lower extremity strengthening program, as per flow sheet. ASSESSMENT: Patient tolerated session well with no complaints of pain. Patient was able to tolerate a progression in her gait distance with 4WW report and SBA. Patient was able to demonstrate independence with bed mobility and transfers with use of leg lifters to maintain precautions. PLAN: As per primary PT TREATMENT CODE/TIME: 25 minutes; TA/TP
--- NOTE | 2018-10-24 10:43 | PT.DS ---
Date of service 10/24/18 Time of Service 10:43 PT Notes Date: 10/24/2018 Referring Doctor: Lucho Talbot MD PT Orders: PT CONSULT: s/p R ADELSO?posterior WBAT?needs wider than hips Precautions: Posterior total hip precautions right lower extremity, WBAT RLE Treatment Dates: 10/21/18 - 10/22/18 THIS DOCUMENT SERVES A SUMMARY OF CARE. NO PHYSICAL THERAPY SERVICES WERE PROVIDED ON THIS DATE. Patient Profile/Admitting Diagnosis: Patient is a 68-year-old female s/p right posterior total hip arthroplasty by Dr. Talbot 10/21/2018, and discharged home 10/22/18. PMHX: Vision deficits wears glasses, osteoarthritis right hip, obesity, psoriasis gluteal creases, essential tremor, gout, carpal tunnel release, hyperlipidemia, hypertension, depression, allergic rhinitis, cholecystectomy Social History/Home Situation: Lives in trailer with her brother, ramp to enter no stairs. Baseline mobility household distances with 4 wheel walker, independent with ADLs. Equipment Owned/DME: 4WW, cane, wheelchair Subjective: Unable to obtain as patient was discharged 10/22/18 Objective: Precautions: Patient issued and instructed in posterior ADELSO precautions including no hip flexion past 90 degrees, no crossing legs keeping knees wider than hips, no internal rotation right lower extremity. Patient has preop ADELSO packet with precautions and home exercise program issued covering posterior ADELSO positioning. Patient issued hip kit for adaptive equipment which included long handled sponge, corporate human resources manager, elastic shoelaces, sock aid, dressing stick, long handled shoe horn. Patient verbally instructed in use of each adaptive device and verbal demonstration provided. Patient verbal verbalized understanding of adaptive equipment. Reports she has slip on shoes and does not wear socks at home so donning and doffing shoes should not be a problem. Bed Mobility/Transfers: *Abduction pillow in place between legs patient instructed in use of abduction pillow for sleeping at night and maintaining hip precautions Supine to sit: HOB flat, independent with leg assembler small products Sit to stand: Supervision Stand to sit: supervision Sit to supine: HOB flat, independent with leg assembler small products Gait: SBA with 4 wheel walker 150 feet, WBAT RLE. Therex: Patient has issued ADELSO home exercise program. Balance: Static Sitting: Normal Dynamic Sitting: Normal Static Standing: Fair Dynamic Standing: Fair Informed Consent/Education: Patient instructed in purpose of PT consult and plan of care. Assessment: Patient is a 68-year-old female s/p right posterior total hip arthroplasty by Dr. Talbot 10/21/2018 in setting of vision deficits wears glasses, osteoarthritis right hip, obesity, psoriasis gluteal creases, essential tremor. She participated in 2 sessions of skilled PT intervention, during which all rehab goals were met. Patient was appropriate for safe return home with assistance from family. Goals: Goals X1 week 1. Supine-Sit: Independent (MET) 2. Sit-Supine: Independent(MET) 3. Sit-Stand: Supervision with 4 wheel walker(MET) 4. Stand-Sit: Independent(PROGRESSING TOWARD) 5. Bed-Chair: Supervision with 4 wheel walker(MET) 6. Chair-Bed: Supervision with 4 wheel walker(MET) 7. Gait: Supervision with 4 wheel walker 80 feet x2, WBAT RLE(MET) 8. Independent with home exercise program (MET) 9. Patient independent with 3/3 ADELSO precautions (MET) Plan of Care/Treatment Plan: D/C HOME DISCHARGE RECOMMENDATIONS: Home, patient has all DME
--- NOTE | 2018-10-24 10:48 | PTDS_ITS ---
Date of service 10/24/18 Time of Service 10:43 PT Notes Date: 10/24/2018 Referring Doctor: Lucho Talbot MD PT Orders: PT CONSULT: s/p R ADELSO?posterior WBAT?needs wider than hips Precautions: Posterior total hip precautions right lower extremity, WBAT RLE Treatment Dates: 10/21/18 - 10/22/18 THIS DOCUMENT SERVES A SUMMARY OF CARE. NO PHYSICAL THERAPY SERVICES WERE PROVIDED ON THIS DATE. Patient Profile/Admitting Diagnosis: Patient is a 68-year-old female s/p right posterior total hip arthroplasty by Dr. Talbot 10/21/2018, and discharged home 10/22/18. PMHX: Vision deficits wears glasses, osteoarthritis right hip, obesity, psoriasis gluteal creases, essential tremor, gout, carpal tunnel release, hyperlipidemia, hypertension, depression, allergic rhinitis, cholecystectomy Social History/Home Situation: Lives in trailer with her brother, ramp to enter no stairs. Baseline mobility household distances with 4 wheel walker, independent with ADLs. Equipment Owned/DME: 4WW, cane, wheelchair Subjective: Unable to obtain as patient was discharged 10/22/18 Objective: Precautions: Patient issued and instructed in posterior ADELSO precautions including no hip flexion past 90 degrees, no crossing legs keeping knees wider than hips, no internal rotation right lower extremity. Patient has preop ADELSO packet with precautions and home exercise program issued covering posterior ADELSO positioning. Patient issued hip kit for adaptive equipment which included long handled sponge, continuous improvement coordinator, elastic shoelaces, sock aid, dressing stick, long handled shoe horn. Patient verbally instructed in use of each adaptive device and verbal demonstration provided. Patient verbal verbalized understanding of adaptive equipment. Reports she has slip on shoes and does not wear socks at home so donning and doffing shoes should not be a problem. Bed Mobility/Transfers: *Abduction pillow in place between legs patient instructed in use of abduction pillow for sleeping at night and maintaining hip precautions Supine to sit: HOB flat, independent with leg alliance consultant Sit to stand: Supervision Stand to sit: supervision Sit to supine: HOB flat, independent with leg alliance consultant Gait: SBA with 4 wheel walker 150 feet, WBAT RLE. Therex: Patient has issued ADELSO home exercise program. Balance: Static Sitting: Normal Dynamic Sitting: Normal Static Standing: Fair Dynamic Standing: Fair Informed Consent/Education: Patient instructed in purpose of PT consult and plan of care. Assessment: Patient is a 68-year-old female s/p right posterior total hip arthroplasty by Dr. Talbot 10/21/2018 in setting of vision deficits wears glasses, osteoarthritis right hip, obesity, psoriasis gluteal creases, essential tremor. She participated in 2 sessions of skilled PT intervention, during which all rehab goals were met. Patient was appropriate for safe return home with assistance from family. Goals: Goals X1 week 1. Supine-Sit: Independent (MET) 2. Sit-Supine: Independent(MET) 3. Sit-Stand: Supervision with 4 wheel walker(MET) 4. Stand-Sit: Independent(PROGRESSING TOWARD) 5. Bed-Chair: Supervision with 4 wheel walker(MET) 6. Chair-Bed: Supervision with 4 wheel walker(MET) 7. Gait: Supervision with 4 wheel walker 80 feet x2, WBAT RLE(MET) 8. Independent with home exercise program (MET) 9. Patient independent with 3/3 ADELSO precautions (MET) Plan of Care/Treatment Plan: D/C HOME DISCHARGE RECOMMENDATIONS: Home, patient has all DME
== END 2018-10-22 13:48 | disposition home or self-care (01) | DRG 470 ==
LOC: PDS 07:40 → MS 10:10
PROVIDERS: Admitting Provider Student in an Organized Health Care Education/Training Program; PCP Nurse Practitioner Family; Visit Provider Student in an Organized Health Care Education/Training Program
PROC: 0SR904A Replacement of Right Hip Joint with Ceramic on Polyethylene Synthetic Substitute, Uncemented, Open Approach (ICD-10-PCS; CPT 27130; principal; 2018-10-21 07:30)
DX: M16.11 Unilateral primary osteoarthritis, right hip (principal); Z96.641 Presence of right artificial hip joint; M21.70 Unequal limb length (acquired), unspecified site; L40.9 Psoriasis, unspecified; I10 Essential (primary) hypertension; E78.5 Hyperlipidemia, unspecified; E66.9 Obesity, unspecified; K21.9 Gastro-esophageal reflux disease without esophagitis; F32.9 Major depressive disorder, single episode, unspecified; Z23 Encounter for immunization
CPT/HCPCS: 27130; 36415; 80048; 85027; 97110; 97162; 97530; NC; 72170; J0690; J1885; J2250; J2370; J2405; J3010; J8540

== ENCOUNTER 2018-11-09 15:01 | Outpatient (CLI) | payer MEDICARE, BC, SELFPAY ==
--- NOTE | 2018-11-09 14:57 | DI.RAD_ITS ---
SYMPTOMS/DIAGNOSIS: STATUS POST RIGHT TOTAL HIP REPLACEMENT PELVIS AND RIGHT HIP: Comparison is made with September,. There has been no change in the alignment of the right total hip prosthesis. No abnormal bony lucencies are seen. The left hip is unremarkable. No new abnormalities are seen.
== END 2018-11-09 15:21 ==
PROVIDERS: PCP Nurse Practitioner Family; Referring Provider Nurse Practitioner Family; Visit Provider Student in an Organized Health Care Education/Training Program
DX: M16.11 Unilateral primary osteoarthritis, right hip (principal); Z96.641 Presence of right artificial hip joint; Z47.1 Aftercare following joint replacement surgery; I10 Essential (primary) hypertension
CPT/HCPCS: 73502

== ENCOUNTER → 2018-12-12 10:12 | Outpatient (BNVA) | payer MEDICARE, BC, SELFPAY | PROVIDERS: PCP Nurse Practitioner Family; Referring Provider Nurse Practitioner Family; Visit Provider Student in an Organized Health Care Education/Training Program | DX: Z47.1 Aftercare following joint replacement surgery (principal); Z96.641 Presence of right artificial hip joint; I10 Essential (primary) hypertension ==

== ENCOUNTER 2019-01-23 10:48 | Outpatient (CLI) | payer MEDICARE, BC, SELFPAY ==
--- NOTE | 2019-01-23 10:44 | DI.RAD_ITS ---
SYMPTOMS/DIAGNOSIS: LEFT KNEE PAIN LEFT KNEE: Three views were obtained. There is marked narrowing of the medial tibiofemoral cartilaginous joint space. There is mild medial subluxation of the femur on the tibia. There are prominent hypertrophic changes of the bones of the knee. CONCLUSION: DJD, predominantly involving medial tibiofemoral joint.
== END 2019-01-23 11:08 ==
PROVIDERS: PCP Nurse Practitioner Family; Referring Provider Nurse Practitioner Family; Visit Provider Student in an Organized Health Care Education/Training Program
DX: M25.562 Pain in left knee; M17.12 Unilateral primary osteoarthritis, left knee; Z96.641 Presence of right artificial hip joint
CPT/HCPCS: 20610; 73562; 99212; 99213; J1040

== ENCOUNTER → 2019-03-06 09:36 | Outpatient (BNVA) | payer MEDICARE, BC, SELFPAY | PROVIDERS: PCP Nurse Practitioner Family; Referring Provider Nurse Practitioner Family; Visit Provider Student in an Organized Health Care Education/Training Program | DX: M25.562 Pain in left knee; M17.12 Unilateral primary osteoarthritis, left knee; I10 Essential (primary) hypertension; Z47.1 Aftercare following joint replacement surgery; Z96.641 Presence of right artificial hip joint | CPT/HCPCS: 99213 ==

== ENCOUNTER 2019-04-04 01:03 | Outpatient (CLI) | payer MEDICARE, BC, SELFPAY ==
[2019-04-04 14:56] LABS: Hemoglobin A1C 5.8 % (4.5-6.2)
--- NOTE | 2019-04-04 15:20 | DI.RAD_ITS ---
SYMPTOMS/DIAGNOSIS: POSTMENOPAUSAL, Z78.0 DEXA SCAN: Routine examination. The lateral view shows no compression deformities. Evaluation of the left hip shows a total T score of -2.1 and a Z score of -0.8. This is consistent with osteopenia and an increased fracture risk. Evaluation of the lumbar spine shows a total T score of 0.9 and Z score of 2.7. This is within normal limits. IMPRESSION: No evidence of osteoporosis.
[2019-04-04 15:50] LABS: ALT 26 U/L (12-78); AST 18 U/L (15-37); Albumin 3.9 g/dL (3.4-5.0); Alkaline Phosphatase 77 U/L (46-116); Anion Gap 13.4 mmol/L (3-11); BUN 12 mg/dL (7-18); Bilirubin, Total 0.5 mg/dL (0.2-1.0); CO2 23.6 mmol/L (21.0-32.0); CREATININE 0.66 mg/dL (0.55-1.02); Chloride 104 mmol/L (98-107); Cholesterol 198 mg/dL (50-200); Glucose 149 mg/dL (70-100); HDL Cholesterol 47 mg/dL (40-60); Potassium 3.9 mmol/L (3.5-5.1); Sodium 141 mmol/L (136-145); Total Protein 6.6 g/dL (6.4-8.2); Triglyceride 579 mg/dL (30-150)
[2019-04-04 16:28] LABS: Uric Acid 5.4 mg/dL (2.6-6.0)
[2019-04-04 17:00] LABS: LDL CHOLESTEROL 82 mg/dL (<100)
== END 2019-04-04 01:23 ==
PROVIDERS: PCP Nurse Practitioner Family; Visit Provider Nurse Practitioner Family
DX: E78.5 Hyperlipidemia, unspecified (principal); R73.03 Prediabetes; M10.9 Gout, unspecified; Z78.0 Asymptomatic menopausal state; Z13.820 Encounter for screening for osteoporosis; M85.852 Other specified disorders of bone density and structure, left thigh
CPT/HCPCS: 36415; 77080; 80053; 80061; 83721; 83036; 84550

== ENCOUNTER 2019-11-16 11:58 | Outpatient (CLI) | payer MEDICARE, BC, SELFPAY ==
--- NOTE | 2019-11-16 12:55 | DI.RAD_ITS ---
EXAM: XR HIP RT AP LAT ONLY INDICATION: ANNUAL F/U. COMPARISON: XR hip RT complete AP pelvis from 11/09/2018 TECHNIQUE: 2D digital imaging was performed. FINDINGS: There are stable postsurgical changes of a right total hip replacement. A portion of the lateral sc rew of the acetabular component of the prosthesis extends beyond the cortex of the right iliac bone. Bones are intact. The soft tissues are unremarkable.
== END 2019-11-16 12:18 ==
PROVIDERS: PCP Nurse Practitioner Family; Referring Provider Nurse Practitioner Family; Visit Provider Student in an Organized Health Care Education/Training Program
DX: Z96.641 Presence of right artificial hip joint (principal); Z47.1 Aftercare following joint replacement surgery; M17.12 Unilateral primary osteoarthritis, left knee; I10 Essential (primary) hypertension; M25.562 Pain in left knee
CPT/HCPCS: 20610; 99213; 73502; J1040

== ENCOUNTER 2020-02-29 10:39 | Outpatient (REF) | payer MEDICARE, BC, SELFPAY ==
[2020-03-01 13:39] LABS: Anion Gap 14.1 mmol/L (3-11); BUN 11 mg/dL (7-18); CO2 24.9 mmol/L (21.0-32.0); CREATININE 0.69 mg/dL (0.55-1.02); Calcium 9.5 mg/dL (8.5-10.1); Calculated LDL 71 mg/dL (<100); Chloride 101 mmol/L (98-107); Cholesterol 197 mg/dL (<200); Glucose 101 mg/dL (74-106); HDL Cholesterol 50 mg/dL (40-60); Potassium 4.1 mmol/L (3.5-5.1); Sodium 140 mmol/L (136-145); Triglyceride 383 mg/dL (<150)
[2020-03-01 13:50] LABS: Uric Acid 5.7 mg/dL (2.6-6.0)
== END 2020-02-29 10:59 ==
LOC: LBN 10:39
PROVIDERS: PCP Nurse Practitioner Family; Visit Provider Nurse Practitioner Family
DX: I10 Essential (primary) hypertension (principal); E78.5 Hyperlipidemia, unspecified; M10.9 Gout, unspecified
CPT/HCPCS: 80048; 80061; 84550

== ENCOUNTER 2020-06-28 04:28 | Outpatient (CLI) | payer MEDICARE, BC, SELFPAY ==
--- NOTE | 2020-06-28 13:20 | DI.MAMMO_ITS ---
EXAM: MG MAMMO SCREENING CLINICAL HISTORY: screening, Z12.39 TECHNIQUE: Bilateral full field digital CC and MLO mammographic images were obtained with 3D tomosyn thesis and utilizing computer aided detection (CAD). COMPARISON: Available for comparison. FINDINGS: Masses/Architectural Distortion: None seen. Microcalcifications: No suspicious pleomorphic-type are seen. Skin Thickening/Nipple Retraction: None. IMPRESSION: 1. No significant interval change with no specific features of malignancy noted. 2. Unless there is more urgent need, screening mammography is recommended, as per [employer] guidelines. BI-RADS Category 1 - Negative Breast Density - Category A - Almost entirely fatty A negative radiographic report should not delay biopsy if a dominant or clinically suspicious mass is present. Up to ten percent of cancers are not identified on mammography. A negative report may reinforce clinical impression. Adenosis and dense breasts may obscure an underlying neoplasm. False positive reports average 6 to 10%. Patient will receive a letter notifying them of these results.
== END 2020-06-28 04:48 ==
PROVIDERS: PCP Nurse Practitioner Family; Visit Provider Nurse Practitioner Family
DX: Z12.31 Encounter for screening mammogram for malignant neoplasm of breast (principal)
CPT/HCPCS: 77063; 77067

== ENCOUNTER 2021-03-07 01:39 | Outpatient (CLI) | payer MEDICARE, BC, SELFPAY ==
[2021-03-07 13:34] LABS: Anion Gap 11.9 mmol/L (3-11); BUN 14 mg/dL (7-18); CO2 24.1 mmol/L (21.0-32.0); CREATININE 0.7 mg/dL (0.55-1.02); Calcium 9.1 mg/dL (8.5-10.1); Chloride 105 mmol/L (98-107); Glucose 111 mg/dL (74-106); Potassium 3.9 mmol/L (3.5-5.1); Sodium 141 mmol/L (136-145); Uric Acid 4.8 mg/dL (2.6-6.0)
[2021-03-07 14:08] LABS: Calculated LDL 55 mg/dL (<100); Cholesterol 168 mg/dL (<200); HDL Cholesterol 46 mg/dL (40-60); Triglyceride 335 mg/dL (<150)
[2021-03-10 05:43] LABS: Vitamin D 25 Total 38.8 ng/mL (30-100)
== END 2021-03-07 01:40 | disposition home or self-care (01) ==
PROVIDERS: PCP Nurse Practitioner Family; Visit Provider Nurse Practitioner Family
DX: I10 Essential (primary) hypertension (principal); E78.5 Hyperlipidemia, unspecified; M10.9 Gout, unspecified; M85.80 Other specified disorders of bone density and structure, unspecified site
CPT/HCPCS: 36415; 80048; 80061; 82306; 84550

== ENCOUNTER 2021-07-31 02:27 | Outpatient (CLI) | payer MEDICARE, BC, SELFPAY ==
--- NOTE | 2021-07-31 12:37 | DI.MAMMO_ITS ---
Exam(s) MAMMO SCREENING EXAM: MAMMO SCREENING CLINICAL HISTORY: screening,z12.39 TECHNIQUE: Bilateral full field digital CC and MLO mammographic images were obtained with 3D tomosyn thesis and utilizing computer aided detection (CAD). COMPARISON: Available for comparison. FINDINGS: Masses/Architectural Distortion: None seen. Microcalcifications: No suspicious pleomorphic-type are seen. Skin Thickening/Nipple Retraction: None. IMPRESSION: 1. No significant interval change with no specific features of malignancy noted. 2. Unless there is more urgent need, screening mammography is recommended, as per [employer] guidelines. BI-RADS Category 1 - Negative Breast Density - Category B - Scattered areas of fibroglandular density Breast density category C or D implies that the patient has dense breast tissue. Dense breast tissue is very common and is not abnormal but dense breast tissue can make it harder to find cancer on a ma mmogram. Also, dense breast tissue may increase their breast cancer risk. This information about the result of the mammogram report was provided to the patient to raise their awareness. Use this report when you speak with the patient about their risks for breast cancer, which includes their family hist ory. At that time, you may recommend for more screening tests (Ultrasound or MRI) as they might be us eful based on their risk. A negative radiographic report should not delay biopsy if a dominant or clinically suspicious mass is present. Up to ten percent of cancers are not identified on mammography. A negative report may reinforce clinical impression. Adenosis and dense breasts may obscure an underlying neoplasm. False positive reports average 6 to 10%. Patient will receive a letter notifying them of these results.
== END 2021-07-31 02:47 ==
PROVIDERS: PCP Nurse Practitioner Family; Visit Provider Nurse Practitioner Family
DX: Z12.31 Encounter for screening mammogram for malignant neoplasm of breast (principal)
CPT/HCPCS: 77063; 77067

== ENCOUNTER → 2021-09-29 14:21 | Outpatient (BNVA) | payer MEDICARE, BC, SELFPAY | PROVIDERS: PCP Nurse Practitioner Family; Referring Provider Nurse Practitioner Family; Visit Provider Student in an Organized Health Care Education/Training Program | DX: M17.12 Unilateral primary osteoarthritis, left knee (principal) | CPT/HCPCS: 99213 ==

== ENCOUNTER 2022-03-12 03:49 | Outpatient (CLI) | payer MEDICARE, SELFPAY ==
[2022-03-12 12:24] LABS: ALT 22 U/L (14-59); BUN 12 mg/dL (7-18); CREATININE 0.6 mg/dL (0.55-1.02); Calcium 9.2 mg/dL (8.5-10.1); Calculated LDL 66 mg/dL (<100); Chloride 106 mmol/L (98-107); Cholesterol 176 mg/dL (<200); Glucose 116 mg/dL (74-106); HDL Cholesterol 51 mg/dL (40-60); Potassium 4.2 mmol/L (3.5-5.1); Sodium 145 mmol/L (136-145); Triglyceride 295 mg/dL (<150)
[2022-03-12 12:40] LABS: Uric Acid 5.8 mg/dL (2.6-6.0)
[2022-03-12 12:42] LABS: Hemoglobin A1C 5.6 % (<5.7)
== END 2022-03-12 03:50 | disposition home or self-care (01) ==
LOC: LOS 03:49
PROVIDERS: PCP Nurse Practitioner Family; Visit Provider Family Medicine
DX: E78.5 Hyperlipidemia, unspecified (principal); I10 Essential (primary) hypertension; R73.9 Hyperglycemia, unspecified; M10.9 Gout, unspecified
CPT/HCPCS: 36415; 80048; 80061; 83036; 84460; 84550

== ENCOUNTER → 2022-07-30 15:10 | Outpatient (CLI) | payer MEDICARE, SELFPAY ==
--- NOTE | 2022-07-30 10:30 | DI.RAD_ITS ---
Exam(s) XR KNEE LT 3V AP,LAT,NAJMA EXAM: XR KNEE LT 3V AP,LAT,NAJMA CLINICAL HISTORY: osteoarthritis M19.90 TECHNIQUE: COMPARISON: No exams were available for comparison FINDINGS: Three views were obtained. There is severe narrowing of medial tibiofemoral cartilaginous joint spac e. There may be narrowing of cartilaginous joint space of patellofemoral joint as well. There is a probable small knee joint effusion. There are mild subchondral sclerotic changes at the medial tibiofemoral joint and there appears to be some flattening of the medial femoral condyle. There are mild marginal osteophytes of all 3 joints of the knee. IMPRESSION: DJD predominantly involving medial tibiofemoral joint. RADIATION DOSE DELIVERED: Total DLP
--- NOTE | 2022-07-30 10:30 | DI.RAD_ITS ---
Exam(s) XR KNEE RT 3V AP,LAT,NAJMA EXAM: XR KNEE RT 3V AP,LAT,NAJMA CLINICAL HISTORY: osteoarthritis M19.90 TECHNIQUE: COMPARISON: No exams were available for comparison FINDINGS: Three views were obtained. There is moderate narrowing of the medial tibiofemoral cartilaginous join t space. There may be narrowing of the patellofemoral cartilaginous joint space as well, although th is is difficult to confirm on the lateral view. There are moderate marginal osteophytes of the joint s of the knee. No other significant bony abnormality seen. IMPRESSION: DJD predominantly involving medial tibiofemoral joint. RADIATION DOSE DELIVERED: Total DLP
== END ==
PROVIDERS: PCP Nurse Practitioner Family; Visit Provider Nurse Practitioner Family
DX: M17.0 Bilateral primary osteoarthritis of knee (principal)
CPT/HCPCS: 73562

== ENCOUNTER → 2022-08-17 15:00 | Outpatient (BNVA) | payer MEDICARE, SELFPAY | PROVIDERS: PCP Nurse Practitioner Family; Referring Provider Nurse Practitioner Family; Visit Provider Student in an Organized Health Care Education/Training Program | DX: M17.11 Unilateral primary osteoarthritis, right knee (principal); M17.12 Unilateral primary osteoarthritis, left knee | CPT/HCPCS: 20610; J1040 ==

== ENCOUNTER → 2022-12-07 13:16 | Outpatient (BNVA) | payer MEDICARE, SELFPAY | PROVIDERS: PCP Nurse Practitioner Family; Referring Provider Nurse Practitioner Family | DX: M17.11 Unilateral primary osteoarthritis, right knee (principal); M17.12 Unilateral primary osteoarthritis, left knee | CPT/HCPCS: 20610; J1040 ==

== ENCOUNTER 2023-01-10 09:01 | Emergency (ER) | payer MEDICARE, SELFPAY ==
[2023-01-10 09:08] VITALS: BP 133/66; PULSE 83; RESP 20; O2SAT 96
[2023-01-10 09:25] VITALS: TEMP 36.7
--- NOTE | 2023-01-10 09:29 | DI.CT_ITS ---
Exam(s) CT ABDOMEN PELVIS W EXAM: CT ABDOMEN PELVIS W CLINICAL HISTORY: lower gi bleeding/rectal? TECHNIQUE: Imaging Protocol: Axial computed tomography images with coronal and sagittal reformatted images were created and reviewed CONTRAST MATERIAL: Intravenous: Omnipaque 350 Contrast volume:100 mL Oral: No COMPARISON: No exams were available for comparison FINDINGS: ABDOMEN: Lung Bases: Normal where visualized. Liver: Normal density. There are few scattered tiny hypodensities in the liver. They are too small f or further characterization, but likely reflect small cysts. Portal, Superior Mesenteric, and Splenic Veins: Unremarkable. Gallbladder and Biliary Tract: Status post cholecystectomy. No significant biliary ductal dilatation . Pancreas: Normal density, no abnormal calcifications or inflammatory process. Spleen: Normal. Adrenals: No masses seen. Kidneys: Normal size, contour and axis. No radiodense stones or obstructive uropathy. No masses seen. Abdominal Aorta: Abdominal portion non-dilated. Atherosclerosis is present. Bowel: There is diverticulosis seen in the colon but no evidence of acute diverticulitis. No evidenc e of bowel obstruction or bowel wall thickening. No evidence of appendicitis. Peritoneal Cavity: No ascites, collection or mesenteric inflammatory response. No free air. Lymph Nodes: Within normal limits. Bones: Within normal limits for the patient's age. The patient has a right total hip replacement. Soft Tissues: There is a fat containing umbilical hernia. PELVIS: Bladder: Symmetric distention, no gross wall thickening. Reproductive Organs: There is a multilobulated mass in the pelvis which appears to be connected to th e right ovary. This may represent an enlarged fibroid uterus but a ovarian/uterine mass should also b e considered. It measures 7.3 x 5.5 x 8.4 cm. A pelvic ultrasound should be obtained for further eval uation. The left ovary is visualized and is unremarkable except for 1.2 cm cyst and punctate calcific ations. Lymph Nodes: Within normal limits. Bones: Within normal limits for the patient's age. IMPRESSION: 1. Heterogeneous mass in the pelvis. Pelvic ultrasound and/or MRI of the pelvis is recommended for fu rther evaluation. The concern is for either a uterine or right ovarian mass. 2. No acute abdominal or pelvic process. RADIATION DOSE DELIVERED: 1,506.19mGy.cm Total DLP DATA REPOSITORY: All CT scans at this facility are submitted to the National Radiology Data Registry (NRDR) Dose Index Registry (DIR) with the [employer] (ACR). RADIATION OPTIMIZATION: All CT scans at this facility use at least one of these dose optimization te chniques: automated exposure control; mA and/or kV adjustment per patient size (includes targeted exa ms where dose is matched to clinical indication); or iterative reconstruction.
[2023-01-10 09:46] LABS: Abs Immature Grans 0.05 10^3/uL (0.0-0.06); Absolute Basophil Count 0.04 10^3/uL (0.0-0.2); Absolute Eosinophil Count 0.04 10^3/uL (0.0-0.7); Absolute Lymphocyte Count 3.17 10^3/uL (1.2-3.4); Absolute Monocyte Count 0.52 10^3/uL (0.1-0.8); Absolute Neutrophil Count 4.43 10^3/uL (1.2-6.7); Basophils % 0.5; Eosinophils % 0.5; HCT 41.6 % (36.0-46.0); HGB 14.3 g/dL (11.2-15.7); Immature Grans % 0.6; Lymphocytes % 38.4; MCH 31.8 pg (27.0-33.0); MCHC 34.4 % (32.0-36.0); MCV 93 fL (80-95); MPV 9.1 fL (8.0-11.0); Monocytes % 6.3; Neutrophils % 53.7; Platelet Count 271 10^3/uL (130-400); RBC 4.49 10^6/uL (3.93-5.22); RDW 12.7 % (11.7-14.6); RDW-SD 42.9 fL; WBC 8.25 10^3/uL (4.4-10.8)
[2023-01-10 09:59] LABS: PTT Activated 24.1 sec (21.5-31.9); Prothrombin Time 9.9 sec (9.3-11.0)
[2023-01-10 10:00] LABS: ALT 27 U/L (14-59); AST 15 U/L (15-37); Albumin 3.6 g/dL (3.4-5.0); Alkaline Phosphatase 71 U/L (46-116); Anion Gap 8.6 mmol/L (3-11); BUN 12 mg/dL (7-18); Bilirubin, Total 0.7 mg/dL (0.2-1.0); CO2 26.4 mmol/L (21.0-32.0); CREATININE 0.7 mg/dL (0.55-1.02); Calcium 9.2 mg/dL (8.5-10.1); Chloride 105 mmol/L (98-107); Estimated GFR 92.98 (mL/min/1.73m2); Glucose 150 mg/dL (74-106); Potassium 3.8 mmol/L (3.5-5.1); Sodium 140 mmol/L (136-145); Total Protein 6.6 g/dL (6.4-8.2)
[2023-01-10] MEDS: Omnipaque 350 MG/ML 100 ML BTL IJ (10:17)
[2023-01-10] MEDS: Normal Saline - Diluent 50 ML VIAL IJ (10:18)
--- NOTE | 2023-01-10 10:22 | W.ED.GENAD ---
Discharge Plan Disposition Patient Disposition: Home Condition: Good Discharge Details Clinical Impression: Bleeding hemorrhoids, Pelvic mass Primary Care Provider: Diana Yao ED Provider: Marshall Soto Home Meds and New Rx's Prescriptions: New hydrocortisone acetate [Anusol-HC] 25 mg suppository 25 mg DC BID Qty: 100 0RF Continued diclofenac sodium [Voltaren Arthritis Pain] 1 % gel 2 - 4 g topical QID PRN (Reason: arthritis pain) Qty: 100 4RF turmeric root extract 538 mg capsule 1,076 mg PO DAILY multivitamin [One Daily Multivitamin] 1 EACH tablet 1 ea PO DAILY calcium carbonate 500 MG tablet,chewable 1,200 mg PO DAILY lisinopril 10 mg tablet 10 mg PO DAILY Qty: 90 4RF meloxicam 15 mg tablet 15 mg PO DAILY Qty: 90 4RF allopurinol 100 mg tablet 100 mg PO DAILY Qty: 90 4RF atorvastatin 40 mg tablet 40 mg PO QHS Qty: 90 4RF Rx Instructions: metoprolol tartrate 50 mg tablet 50 - 100 mg PO DAILY Qty: 270 4RF Rx Instructions: 1 tab (50mg) in the morning and 2 tabs (100mg) in the evening omeprazole 20 mg capsule,delayed release(DR/EC) 20 mg PO DAILY Qty: 90 4RF fluoxetine 10 mg capsule 10 mg PO DAILY Qty: 90 4RF clobetasol 0.05 % ointment 1 applic TP DAILY PRN (Reason: psoriasis) Qty: 60 2RF Rx Instructions: Apply to bilateral elbows and other affected areas once a day as needed for psoriasis acetaminophen 325 mg Tablet 650 mg PO Q6H PRNQty: 90 3RF Discharge Instructions Instructions: Hemorrhoids (ED) Additional Instructions: At this time you do have notable hemorrhoids which I suspect are the main cause of your bleeding. Please use the Anusol suppository as directed. It has been sent to your [facility] pharmacy on file. Additionally there was a mass noted on your uterus. We have contacted obstetrics/gynecology, and we will be getting an orders for an ultrasound for your pelvis. Please call them at the given number on the ultrasound order form that we have provided you. Obstetrics gynecology will contact you for an appointment for follow-up. Additionally please use witch sotero wipes which can be picked up at your local pharmacy to help with your hemorrhoids. If you do not notice resolution over the next 3 to 4 weeks with the suppositories and the witch sotero wipes, you may require surgical banding. Please follow closely with your primary care provider in regards to this. If you notice any worsening of your symptoms, or any new symptoms such as vomiting, diarrhea, fever, chills, shortness of breath, chest pain, numbness, weakness, or fainting , please return immediately to the emergency department for reevaluation. Please follow up with your primary care provider as soon as possible for reassessment and reevaluation. As always, it was a pleasure participating in your medical care today. Referrals: Diana Yao NP [Primary Care Provider] - Staci Cates MD [ [facility] STAFF PHYSICIAN] - Medical Decision Making 72-year-old female with a past medical history of osteoarthritis of the knee, GERD, psoriasis, gout, high cholesterol, presents today for evaluation of rectal bleeding. Patient states that for the last year she has had blood whenever she wipes. She has regular chronic diarrhea for the last 30 to 40 years of her life. She denies any constipation. She has mild achiness and burning when she has bowel movements. She has itching in the rectal region. She admits to mild occasional intermittent stomach unease, but no significant abdominal pain. She denies any personal or family history of colon cancer. She does not take any blood thinners. She did notice this morning that there was a notable amount of bleeding that came out onto the floor when she was standing. This did concern her which prompted her visit to the ER today. She denies any syncope or lightheadedness. No other complaints at this time. No other modifying factors. Physical exam demonstrates well-appearing female. No abdominal tenderness. She has 4 large hemorrhoids rectally. No active bleeding at this time. No rectal mass that I can appreciate. I suspect this is the cause of her symptoms. However due to the longevity of her symptoms I am concerned that there may be an internal component, although less likely, that could be causing. We did a CT scan of the rectum, we we will get basic blood work to check her hemoglobin levels, will monitor closely and reassess. 11:37 AM Laboratory work-up is returned normal, no anemia, no other significant abnormalities. Patient has been typed and screened. CT scan was ordered and did show evidence of a large pelvic mass and enlarged ovaries. No other rectal abnormality though. I did perform a vaginal exam with female nurse Razia at bedside. Vaginal exam demonstrates a slightly atypical cervix but without any ulcers or bleeding, no large masses that I can appreciate visually. No active bleeding at this time. No clear evidence of blood. Patient otherwise feels well. Patient is stable for discharge at this time. I did reach out to Dr. Cates of obstetrics and informed her of the patient and the desire for follow-up. She we will follow-up closely with the patient on an outpatient basis post ultrasound. We have ordered an outpatient ultrasound to be performed this week as it is currently the weekend and no ultrasound is available. We will give Anusol suppository for home use. Recommend this and which sotero wipes for the next few weeks, and if she does not have resolution then she may require banding by surgery on a nonemergent outpatient basis. Discussed red flags for which to return. Patient otherwise stable for discharge. I have extensively reviewed the treatment plan and discharge instructions with the patient. I have addressed all patient concerns at this time. The patient was made aware of what symptoms to monitor for that would warrant a return to the emergency department. Discussed the plan with the patient, they demonstrate verbal understanding and agreement with our assessment and plan at this time. The documentation in this chart was dictated using [employer] dictation software. Please excuse any dictation errors. FINDINGS: Liver: Normal. No mass. Gallbladder and bile ducts: There has been a cholecystectomy. Pancreas: The pancreas is normal. Spleen: The spleen is normal. Adrenal glands: The adrenal glands are normal. Kidneys and ureters: Normal. No hydronephrosis. Stomach and bowel: The stomach has a moderate amount fluid within it. The fundal wall is symmetrically thickened likely from the under distended state. The small bowel has a random distribution throughout the peritoneal cavity. The colon has multiple colonic diverticula. The rectum shows no wall thickening or stranding within the perirectal fat. Appendix: A normal appendix is identified. Intraperitoneal space: No free fluid in the peritoneal cavity. Vasculature: The vasculature demonstrates diffuse mild atherosclerotic calcification. Lymph nodes: Unremarkable. No enlarged lymph nodes. Urinary bladder: Unremarkable as visualized. Reproductive: The uterus is poorly defined. There is a heterogeneous mass within the pelvis measuring 7.3 x 5.5 x 8.4 cm in greatest dimension. The the uterus may be displaced to the left by a large complex cystic area along the right margin of the uterus. There is heterogeneous fluid within the endometrial cavity and within the multiloculated cystic structure to the right side of the apparent uterus. The right ovary is enlarged measuring 4.2 x 2.6 x 2.7 cm. There is a 2.3 cm cyst within the ovary. The left ovary measures 3.4 x 2.4 x 3.0 cm. There is a 1.2 cm cyst and some punctate calcifications. Bones/joints: Total right hip arthroplasty obscures some of the pelvis. The spine demonstrates moderate degenerative changes at multiple levels. Soft tissues: Small fat containing umbilical hernia. IMPRESSION: 1. Heterogeneous septated mass within the pelvis with the enlargement of the ovaries. Suggest pelvic ultrasound and or MRI. 2. Uncomplicated colonic diverticulosis. 3. Mild atherosclerotic peripheral vascular disease. New moderate degenerative changes of the lumbar spine. The findings were verbally communicated via telephone conference with MARSHALL SOTO at 11:04 AM EST on 01/10/2023. The findings were acknowledged and understood. Thank you for allowing us to participate in the care of your patient. Dictated and Authenticated by: Ted Monroe MD 01/10/2023 11:12 AM Eastern Time ([place] & [place]) HPI General Date/Time Provider Initiated Documentation: 01/10/23 09:07. HPI Narrative: 72-year-old female with a past medical history of osteoarthritis of the knee, GERD, psoriasis, gout, high cholesterol, presents today for evaluation of rectal bleeding. Patient states that for the last year she has had blood whenever she wipes. She has regular chronic diarrhea for the last 30 to 40 years of her life. She denies any constipation. She has mild achiness and burning when she has bowel movements. She has itching in the rectal region. She admits to mild occasional intermittent stomach unease, but no significant abdominal pain. She denies any personal or family history of colon cancer. She does not take any blood thinners. She did notice this morning that there was a notable amount of bleeding that came out onto the floor when she was standing. This did concern her which prompted her visit to the ER today. She denies any syncope or lightheadedness. No other complaints at this time. No other modifying factors. Related Data Home Medications Medication Instructions Recorded Confirmed calcium carbonate 500 mg calcium 1,200 mg PO DAILY 01/12/17 01/10/23 (1,250 mg) chewable tablet multivitamin (One Daily 1 ea PO DAILY 01/12/17 01/10/23 Multivitamin tablet) turmeric root extract 538 mg 1,076 mg PO DAILY 08/17/18 01/10/23 capsule acetaminophen 325 mg tablet 650 mg PO Q6H PRN #90 tabs 10/22/18 01/10/23 lisinopril 10 mg tablet 10 mg PO DAILY #90 tab-caps 01/09/22 01/10/23 meloxicam 15 mg tablet 15 mg PO DAILY #90 tabs 02/19/22 01/10/23 allopurinol 100 mg tablet 100 mg PO DAILY #90 tab-caps 03/31/22 01/10/23 atorvastatin 40 mg tablet 40 mg PO QHS #90 tabs 03/31/22 01/10/23 metoprolol tartrate 50 mg tablet 50 - 100 mg PO DAILY #270 tabs 03/31/22 01/10/23 omeprazole 20 mg capsule,delayed 20 mg PO DAILY #90 tab-caps 03/31/22 01/10/23 release fluoxetine 10 mg capsule 10 mg PO DAILY #90 tab-caps 04/28/22 01/10/23 diclofenac sodium 1 % topical gel 2 - 4 g topical QID PRN arthritis 07/29/22 01/10/23 (Voltaren Arthritis Pain) pain #100 grams clobetasol 0.05 % topical ointment 1 applic topical DAILY PRN 10/30/22 01/10/23 psoriasis #60 grams hydrocortisone acetate 25 mg 25 mg DC BID #100 ea 01/10/23 rectal suppository (Anusol-HC) Previous Rx's Medication Instructions Recorded acetaminophen 325 mg tablet 650 mg PO Q6H PRN #90 tabs 10/22/18 lisinopril 10 mg tablet 10 mg PO DAILY #90 tab-caps 01/09/22 meloxicam 15 mg tablet 15 mg PO DAILY #90 tabs 02/19/22 allopurinol 100 mg tablet 100 mg PO DAILY #90 tab-caps 03/31/22 atorvastatin 40 mg tablet 40 mg PO QHS #90 tabs 03/31/22 metoprolol tartrate 50 mg tablet 50 - 100 mg PO DAILY #270 tabs 03/31/22 omeprazole 20 mg capsule,delayed 20 mg PO DAILY #90 tab-caps 03/31/22 release fluoxetine 10 mg capsule 10 mg PO DAILY #90 tab-caps 04/28/22 diclofenac sodium 1 % topical gel 2 - 4 g topical QID PRN arthritis 07/29/22 (Voltaren Arthritis Pain) pain #100 grams clobetasol 0.05 % topical ointment 1 applic topical DAILY PRN 10/30/22 psoriasis #60 grams hydrocortisone acetate 25 mg 25 mg DC BID #100 ea 01/10/23 rectal suppository (Anusol-HC) Allergies Allergy/AdvReac Type Severity Reaction Status Date / Time Penicillins Allergy Intermediate Rash Verified 01/10/23 09:12 Sulfa (Sulfonamide Allergy Intermediate Skin Rash Verified 01/10/23 09:12 Antibiotics) tetracycline Allergy Intermediate Skin Rash Verified 01/10/23 09:12 nickel Allergy Mild Other (See Verified 01/10/23 09:12 Comment) General Stated Complaint: GI Bleed PAT: 3 Review of Systems All systems reviewed & are unremarkable except as noted in HPI and below PFSH All Active Problems (Updated 01/10/23 @ 11:31 by Marshall Soto DO) Bleeding hemorrhoids (Acute) Pelvic mass (Acute) Primary osteoarthritis of right knee (Acute) Corticosteroid injection: 12/07/22; 08/17/2022 Hyperglycemia (Acute) [id number] Essential hypertension (Chronic) Hyperlipidemia (Chronic) Primary osteoarthritis of left knee (Chronic) Corticosteroid Injection 12/07/22; 08/17/2022; 01/23/19, 11/16/19 Depressive disorder (Chronic) GERD (gastroesophageal reflux disease) (Chronic) Osteopenia (Chronic) Dexa scan 03/2019 osteopenia of left hip Gout (Chronic) Allergic rhinitis (Chronic) Essential tremor (Chronic) Obesity (Chronic) Medical History Prediabetes Surgical History History of carpal tunnel surgery of left wrist (10/31/03) History of carpal tunnel surgery of right wrist (12/29/02) History of total right hip arthroplasty (10/21/18) Hx of cataract surgery S/P cholecystectomy Family History Mother , at 73 Essential hypertension Hyperlipidemia Dementia Brain cyst Led to dementia Father , at 87 Essential hypertension Dementia Sister Depression Hyperlipidemia Sister Essential hypertension Brother Essential hypertension Hyperlipidemia Brother Heart disease Hyperlipidemia Myocardial infarction Essential hypertension Maternal Grandfather , at 96 Stroke Hypertension Heart disease Maternal Grandmother , at 98 Dementia Paternal Grandfather , in his late 60s Heart disease Paternal Grandmother , at 60 No problems noted. Social History Smoking/Tobacco Use Status: Never Smoking risk assessment performed?: Yes Alcohol Intake: never Drug use: Never Substance use type: does not use Caregiver/Support person: No Household members: family Housing: other Details: Mobile Home Communication Needs: None Do you need help understanding health information?: Rarely Pets and animals: Yes Pets and animals: cat(s) and dog(s) Sexually active: No Do you think of yourself as: straight/heterosexual Current gender identity: female How often do you talk on the phone with friends or family?: three or more times per week How often do you get together with friends or relatives?: decline to answer How often do you attend scientology or catholic services?: 1-3 times per year Do you belong to any clubs or organized social groups?: no Panel score (0-1 are the most socially isolated patients): 1 What type of physical activity do you participate in: other Details: Volunteers at local school for 1 hour daily and decline to answer Shauna/Christianity: None Special shauna needs: No Seatbelt use: always Drive intox or ride w/intox 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 3.ENT: Atraumatic external nose and ears. Moist MM. Neck: Symmetric, trachea midline, No thyromegaly. 4.CVS: +S1/S2, No murmurs or gallops. Peripheral pulses 2+ and equal in all extremities. Brisk capillary refill in all extremities. 5.RESP: Unlabored respiratory effort. Clear to auscultation bilaterally. No wheezes rales or rhonchi 6.GI: Soft, Nontender/Nondistended, No hepatosplenomegaly. No guarding or rebound. Rectal exam demonstrates 4 very large slightly thrombosed hemorrhoids. They are not tense. They are reducible. No active bleeding at this time. Rectal exam internally demonstrated no large mass that was palpable. hemorrhoid extends internally. Exam was performed with female nurse at bedside 7.MSK: Normocephalic/Atraumatic, Extremities w/o deformity or ttp No cyanosis or clubbing, Normal movement of all extremities 8.Skin: Warm, Dry. No rashes or lesions. 9.Neuro: [employer] II-XII grossly intact. Sensation grossly intact, no focal neurologic deficits. 10.Psych: (AAO) x3. Appropriate mood and affect Course Vital Signs Vital signs: Vital Signs Pulse 83 01/10/23 09:08 Respiratory Rate 20 01/10/23 09:08 Blood Pressure 133/66 01/10/23 09:08 Pulse Oximetry 96 01/10/23 09:08 Temperature 36.7 C 01/10/23 09:25 Temperature Source Skin 01/10/23 09:25 Pulse 83 01/10/23 09:08 Respiratory Rate 20 01/10/23 09:08 Respiratory Effort Normal, Non-Labored 01/10/23 09:13 Blood Pressure 133/66 01/10/23 09:08 Blood Pressure Position Sitting 01/10/23 09:08 Pulse Oximetry 96 01/10/23 09:08 Oxygen Delivery Method Room Air 01/10/23 09:08 Oxygen Flow Rate 0 01/10/23 09:08 Lab/Test Results Lab/Test Results: Laboratory Tests Range/Units 01/10/23 01/10/23 01/10/23 09:35 09:35 09:35 WBC (4.4-10.8) 10^3/uL 8.25 RBC (3.93-5.22) 10^6/uL 4.49 Hgb (11.2-15.7) g/dL 14.3 Hct (36.0-46.0) % 41.6 MCV (80-95) fL 93 MCH (27.0-33.0) pg 31.8 MCHC (32.0-36.0) % 34.4 RDW (11.7-14.6) % 12.7 Plt Count (130-400) 10^3/uL 271 MPV (8.0-11.0) fL 9.1 Immature Gran % 0.6 Neutrophils % 53.7 Lymphocytes % 38.4 Monocytes % 6.3 Eosinophils % 0.5 Basophils % 0.5 Nucleated RBC % (0.0-0.3) % 0.0 Absolute Neutrophils (1.2-6.7) 10^3/uL 4.43 Absolute Lymphocytes (1.2-3.4) 10^3/uL 3.17 Absolute Monocytes (0.1-0.8) 10^3/uL 0.52 Absolute Eosinophils (0.0-0.7) 10^3/uL 0.04 Absolute Basophils (0.0-0.2) 10^3/uL 0.04 PT (9.3-11.0) sec 9.9 INR (0.9-1.1) 1.0 APTT (21.5-31.9) sec 24.1 Sodium (136-145) mmol/L 140 Potassium (3.5-5.1) mmol/L 3.8 Chloride (98-107) mmol/L 105 Carbon Dioxide (21.0-32.0) mmol/L 26.4 Anion Gap (3-11) mmol/L 8.6 BUN (7-18) mg/dL 12 Creatinine (0.55-1.02) mg/dL 0.7 Est GFR (CKD-EPI 2020) (mL/min/1.73m2) 92.98 Glucose (74-106) mg/dL 150 H Calcium (8.5-10.1) mg/dL 9.2 Total Bilirubin (0.2-1.0) mg/dL 0.7 AST (15-37) U/L 15 ALT (14-59) U/L 27 Alkaline Phosphatase (46-116) U/L 71 Total Protein (6.4-8.2) g/dL 6.6 Albumin (3.4-5.0) g/dL 3.6
--- NOTE | 2023-01-10 11:13 | DI.VRAD_ITS ---
PROCEDURE INFORMATION: Exam: CT Abdomen And Pelvis With Contrast Exam date and time: 01/10/2023 10:16 AM Age: 72 years old Clinical indication: Other: Lower gi bleeding/rectal? ; Prior surgery; Surgery date: 6+ months TECHNIQUE: Imaging protocol: Computed tomography of the abdomen and pelvis with contrast. Radiation optimization: All CT scans at this facility use at least one of these dose optimization techniques: automated exposure control; mA and/or kV adjustment per patient size (includes targeted exams where dose is matched to clinical indication); or iterative reconstruction. Contrast material: OMNIPAQUE 350; Contrast volume: 100 ml; Contrast route: INTRAVENOUS (IV); COMPARISON: CR XR hip RT complete AP pelvis 11/09/2018 3:16 PM FINDINGS: Liver: Normal. No mass. Gallbladder and bile ducts: There has been a cholecystectomy. Pancreas: The pancreas is normal. Spleen: The spleen is normal. Adrenal glands: The adrenal glands are normal. Kidneys and ureters: Normal. No hydronephrosis. Stomach and bowel: The stomach has a moderate amount fluid within it. The fundal wall is symmetrically thickened likely from the under distended state. The small bowel has a random distribution throughout the peritoneal cavity. The colon has multiple colonic diverticula. The rectum shows no wall thickening or stranding within the perirectal fat. Appendix: A normal appendix is identified. Intraperitoneal space: No free fluid in the peritoneal cavity. Vasculature: The vasculature demonstrates diffuse mild atherosclerotic calcification. Lymph nodes: Unremarkable. No enlarged lymph nodes. Urinary bladder: Unremarkable as visualized. Reproductive: The uterus is poorly defined. There is a heterogeneous mass within the pelvis measuring 7.3 x 5.5 x 8.4 cm in greatest dimension. The the uterus may be displaced to the left by a large complex cystic area along the right margin of the uterus. There is heterogeneous fluid within the endometrial cavity and within the multiloculated cystic structure to the right side of the apparent uterus. The right ovary is enlarged measuring 4.2 x 2.6 x 2.7 cm. There is a 2.3 cm cyst within the ovary. The left ovary measures 3.4 x 2.4 x 3.0 cm. There is a 1.2 cm cyst and some punctate calcifications. Bones/joints: Total right hip arthroplasty obscures some of the pelvis. The spine demonstrates moderate degenerative changes at multiple levels. Soft tissues: Small fat containing umbilical hernia. IMPRESSION: 1. Heterogeneous septated mass within the pelvis with the enlargement of the ovaries. Suggest pelvic ultrasound and or MRI. 2. Uncomplicated colonic diverticulosis. 3. Mild atherosclerotic peripheral vascular disease. New moderate degenerative changes of the lumbar spine. The findings were verbally communicated via telephone conference with ANGELICA SOTO at 11:04 AM EST on 01/10/2023. The findings were acknowledged and understood. Dictated and Authenticated by: Ted Monroe MD. Ordering:VENTURA Olivares MD
[2023-01-10 11:27] VITALS: BP 101/53; PULSE 72; RESP 18; O2SAT 97
--- NOTE | 2023-01-10 11:37 | NUR.NOTE ---
Nursing Note: Referral faxed to [facility] radiology request for transvaginal US/pelvic uterine mass/next week/follow up with Obstetrics/Gynecology.
== END 2023-01-10 11:56 | disposition home or self-care (01) ==
PROVIDERS: Emergency Provider Student in an Organized Health Care Education/Training Program; PCP Nurse Practitioner Family
DX: R19.00 Intra-abdominal and pelvic swelling, mass and lump, unspecified site; K52.9 Noninfective gastroenteritis and colitis, unspecified; K64.9 Unspecified hemorrhoids
CPT/HCPCS: 36415; 80053; 86850; 86900; 86901; 99285; 74177; 85025; 85610; 85730; 99284; J3490

== ENCOUNTER 2023-01-11 13:07 | Outpatient (CLI) | payer MEDICARE, SELFPAY ==
--- NOTE | 2023-01-11 | DI.US_ITS ---
Exam(s) US PELVIS TRANSVAGINAL EXAM: US PELVIS TRANSVAGINAL CLINICAL HISTORY: PELVIC/UTERINE MASS TECHNIQUE: Ultrasound of the pelvis was performed both transabdominal and transvaginal. COMPARISON: CT CT ABDOMEN PELVIS W from 01/10/2023 FINDINGS: UTERUS: Measures 8 cm length x 6 cm AP x 6 cm wide. There is a prominent solid and partially cystic mass intimately associated with the superior aspect o f the uterus measuring approximately 7 x 6 x 5 cm and containing a 2.6 x 2.2 cm cystic component.. T his mass occupies the entire uterus and the endometrial finding cannot be delineated as a separate st ructure. Endometrium was not able to be delineated as separate structure from this mass and therefore canal at be measured with respect to thickness. Ovaries: Ovaries are not able to be delineated separate structures here. CUL-DE-SAC: No free fluid evident. IMPRESSION: 1. Concerning systolic-partially cystic mass occupying most of the uterus. Endometrium and myometriu m cannot be delineated is separate. Suspect neoplasm of the uterus. 2. Ovaries are not seen on this study. 3. No free fluid evident in the adnexal regions and cul-de-sac. DATA REPOSITORY:
== END 2023-01-11 13:27 ==
LOC: DI 13:07
PROVIDERS: PCP Nurse Practitioner Family; Visit Provider Student in an Organized Health Care Education/Training Program
DX: R19.09 Other intra-abdominal and pelvic swelling, mass and lump (principal)
CPT/HCPCS: 76830; 76856

== ENCOUNTER 2023-01-13 11:23 | Outpatient (REF) | payer MEDICARE, SELFPAY ==
--- NOTE | 2023-01-13 11:20 | ENDOMET_PTH ---
PATIENT: Mary Beth Chand LOC: [facility] U#:[id number] AGE/SX: 72/F ROOM: RE01/13/[address]: Charlette Pinto MD : [id number] BED: DIS: 01/13/2023 SPEC #: [id number] RECD: 01/13/23 12:45 STATUS: AGUSTIN REQ #: [id number] CHET: 01/13/23 11:[address]: Charlette Pinto DEPT: Surgical Specimen RECD BY: Shahnaz Scherer ENTERED: 01/13/23 12:45 SP TYPE: Endomet OTHR DR: Diana Yao, RN CLINICAL TRIALS Tissues: 1 - ENDOMETRIUM BX/CONCETTAETTE Procedures: GROSS AND MICRO LEVEL 4 Comments: [id number]
== END 2023-01-13 11:24 | disposition home or self-care (01) ==
LOC: LBN 11:23
PROVIDERS: PCP Nurse Practitioner Family; Visit Provider Obstetrics & Gynecology
DX: N85.8 Other specified noninflammatory disorders of uterus (principal)
CPT/HCPCS: 88305

== ENCOUNTER 2023-03-25 11:50 | Outpatient (CLI) | payer MEDICARE, SELFPAY ==
--- NOTE | 2023-03-25 11:30 | DI.RAD_ITS ---
Exam(s) XR STANDING ALIGNMENT EXAM: XR STANDING ALIGNMENT CLINICAL HISTORY: eval alignment for TKA. TECHNIQUE: 2D digital imaging was performed. COMPARISON: CR XR HIP RT AP LAT ONLY from 11/16/2019 CR XR KNEE LT 3V AP,LAT,NAJMA from 07/30/2022 CR XR KNEE RT 3V AP,LAT,NAJMA from 07/30/2022 FINDINGS: 3 views Right hip prosthesis again noted. Left hip appears unremarkable. Advanced narrowing of the medial compartments of both knees noted. Lateral compartment exhibits norm al height. Ankles unremarkable. No osseous lesions. IMPRESSION: Advanced narrowing medial compartment both knees. DATA REPOSITORY: RADIATION DOSE DELIVERED:
== END 2023-03-25 11:51 | disposition home or self-care (01) ==
LOC: DIORS 11:50
PROVIDERS: PCP Nurse Practitioner Family; Referring Provider Nurse Practitioner Family; Visit Provider Student in an Organized Health Care Education/Training Program
DX: M17.11 Unilateral primary osteoarthritis, right knee (principal); M17.12 Unilateral primary osteoarthritis, left knee
CPT/HCPCS: 99214; 77073

== ENCOUNTER → 2023-04-12 13:28 | Outpatient (BNVA) | payer MEDICARE, SELFPAY | PROVIDERS: PCP Nurse Practitioner Family; Referring Provider Nurse Practitioner Family; Visit Provider Surgery | DX: K64.5 Perianal venous thrombosis (principal); K64.4 Residual hemorrhoidal skin tags; K62.5 Hemorrhage of anus and rectum; M17.12 Unilateral primary osteoarthritis, left knee | CPT/HCPCS: 99213; 99242 ==

== ENCOUNTER 2023-04-13 10:11 | Day surgery (SDC) | payer MEDICARE, SELFPAY ==
--- NOTE | 2023-04-12 22:25 | W.PM.DSUDISC ---
Date of service: 04/13/23 Time of Service: 13:09 Discharge Plan Disposition Patient Disposition: Home Discharge Details Reason For Visit: excision thrombosed hemorrhoid Attending Provider: Marisel Camilo Primary Care Provider: Diana Yao Home Meds and New Rx's Prescriptions: New dibucaine 1 % ointment 1 applic AR QID PRNQty: 56 6RF Continued diclofenac sodium [Voltaren Arthritis Pain] 1 % gel 2 - 4 g topical QID PRN (Reason: arthritis pain) Qty: 100 4RF turmeric root extract 538 mg capsule 1,076 mg PO DAILY multivitamin [One Daily Multivitamin] 1 EACH tablet 1 ea PO DAILY calcium carbonate 500 MG tablet,chewable 1,200 mg PO DAILY clobetasol 0.05 % ointment 1 applic TP DAILY PRN (Reason: psoriasis) Qty: 60 2RF Rx Instructions: Apply to bilateral elbows and other affected areas once a day as needed for psoriasis lisinopril 10 mg tablet 10 mg PO DAILY Qty: 90 3RF allopurinol 100 mg tablet 100 mg PO DAILY Qty: 90 3RF atorvastatin 40 mg tablet 40 mg PO QHS Qty: 90 3RF fluoxetine 10 mg capsule 10 mg PO DAILY Qty: 90 3RF meloxicam 15 mg tablet 15 mg PO DAILY PRN (Reason: pain) Qty: 90 3RF metoprolol tartrate 50 mg tablet 50 - 100 mg PO DAILY Qty: 270 3RF Rx Instructions: 1 tab (50mg) in the morning and 2 tabs (100mg) in the evening omeprazole 20 mg capsule,delayed release(DR/EC) 20 mg PO DAILY Qty: 90 3RF acetaminophen 325 mg Tablet 650 mg PO Q6H PRNQty: 90 3RF melatonin 10 mg Tablet 10 mg PO DAILY Discharge Instructions Additional Instructions: Home Care Instructions after Rectal Surgery Pain control:? Ibuprofen 600mg 6hrs (take w/ food. Do not take on an empty stomach) and Tylenol 1000mg by mouth (ibuprofen 400-600mg) every 8 hours.? Do not take if you have ulcers or sensitivity to aspirin.? Do not take Tylenol if you have hepatitis or liver failure. Alternate the Tylenol and ibuprofen.? Take pain meds continuously for the first 72hrs.? After 72hrs, you can take as needed if you are having pain.? How to prevent constipation: The first bowel movement after surgery will be painful. Do not let yourself get constipated. Stay on a stool softener for the first two weeks after surgery. ?It is recommended that you use a fiber supplement (Metamucil, Citrucel) daily (1 tablespoon in 8 oz of water). If you do not have a bowel movement daily, use Milk of Magnesia or Miralax. You may have bleeding or drainage after rectal surgery; especially when you move your bowels. Use a sanitary napkin to collect the discharge. If you are passing large clots or having to change the pad more than every 4 hours, call the clinic or go to the ER. You may experience spasms in the rectal muscles. This is normal after surgery and last for about two weeks. They can become more intense with bowel movements. The best remedy is to soak in a bathtub of plain warm water- no Epsom salts, essential oil or soap.? It takes about 10 minutes further the spasm to stop.? You may want to do this after BM as well. It is ok to shower. Avoid soap on the surgical area. Use a pillow to sit on. Follow a mild bland diet. Avoid alcohol, spicy food, citrus, and tomatoes. Avoid strenuous activity (running, jogging, and power walking, swimming, weight lifting) for two weeks. No lifting over 20 pounds for 2 weeks. Activity:: see above Diet:: As Tolerated Discharge Orders Discharge Orders: Discharge Order (Routine); Ordered 04/12/23 Ordered By: Marisel Camilo DS: Diagnosis Discharge Diagnosis (1) Thrombosed external hemorrhoid: Status: Acute Asessment and Plan: Home Care Instructions after Rectal Surgery Pain control:? Ibuprofen 600mg 6hrs (take w/ food. Do not take on an empty stomach) and Tylenol 1000mg by mouth (ibuprofen 400-600mg) every 8 hours.? Do not take if you have ulcers or sensitivity to aspirin.? Do not take Tylenol if you have hepatitis or liver failure. Alternate the Tylenol and ibuprofen.? Take pain meds continuously for the first 72hrs.? After 72hrs, you can take as needed if you are having pain.? You can also use Dibucaine ointment for pain control- apply directly to surgical site. How to prevent constipation: The first bowel movement after surgery will be painful. Do not let yourself get constipated. Stay on a stool softener for the first two weeks after surgery. ?It is recommended that you use a fiber supplement (Metamucil, Citrucel) daily (1 tablespoon in 8 oz of water). If you do not have a bowel movement daily, use Milk of Magnesia or Miralax. You may have bleeding or drainage after rectal surgery; especially when you move your bowels. Use a sanitary napkin to collect the discharge. If you are passing large clots or having to change the pad more than every 4 hours, call the clinic or go to the ER. You may experience spasms in the rectal muscles. This is normal after surgery and last for about two weeks. They can become more intense with bowel movements. The best remedy is to soak in a bathtub of plain warm water- no Epsom salts, essential oil or soap.? It takes about 10 minutes further the spasm to stop.? You may want to do this after BM as well. It is ok to shower. Avoid soap on the surgical area. Use a pillow to sit on. Follow a mild bland diet. Avoid alcohol, spicy food, citrus, and tomatoes. Avoid strenuous activity (running, jogging, and power walking, swimming, weight lifting) for two weeks. No lifting over 20 pounds for 2 weeks. F/u in surgery clinic in 2 wks time w/ Dr. 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
--- NOTE | 2023-04-12 22:30 | W.PM.OP ---
Date of service: 04/13/23 Time of Service: 13:10 Operative Note Operative Note DATE OF PROCEDURE: 04/13/23 PRE-OP DIAGNOSIS: thrombosed hemorrhoid POST-OP DIAGNOSIS: other PROCEDURE: excision of Ext. thrombosed hemorhoid 5 oclock position SURGEON: Marisel Camilo ANESTHESIA TYPE: Local By Surgeon Refer to Anesthesia Record ESTIMATED BLOOD LOSS: 5 PATHOLOGY: other COMPLICATIONS: None Patient was transported to: same day Patient's condition: stable Procedure Description: Pt is here today for excision of thrombosed E. hemorrhoids.? Informed consent is obtained explaining risks and benefits of the procedure, including but not limited to:? bleeding, infection, pneumonia, blood clots, damage to sphincters resulting in stenosis or loss of control, anesthesia, recurrence, and other unforetold complications. The pt is brought to the operative suite.? Anesthesia is administered per the dept. of anesthesia.? (S)he is than placed in low lithotomy stirrups. The anal/rectal region is prepped and draped in the usual sterile fashion using a Betadine scrub solution.? Timeout and fire safety are performed. 30cc of .25% Marcaine w/ epi is used for local and for a pudendal block, pre procedurally. ?? Procedure:? A Murcia anal retractor was inserted to aid in visualization of the hemorrhoids to be operated upon. She has a thrombosed hemorrhoid at the 5 o'clock position; this hemorrhoid was grasped at the mucocuteneous junction with an Allis forceps and retracted.? A stay suture of 4-0 Vicryl was placed distal to the end of the incision.? The skin was incised at the base of the hemorrhoid with a scissors as a V-shape incision. The incision was extended into the mucosa either side of the hemorrhoid, raising it off the muscles of the internal sphincter. The dissection is continued just beyond the dentate line.? All clot was removed prior to closing the defect.? The Defect was then closed with 4-0 Vicryl in a running fashion.?? The rectum was irrigated.? There is no bleeding noted.? Dibucaine impregnated Gelfoam was inserted into the rectum and sterile dressing is applied.? Patient tolerated procedure well without complication and transferred to recovery room in stable condition.
[2023-04-13] VITALS (10 sets, daily range): BP systolic 96–137; BP diastolic 34–86; PULSE 61–81; RESP 15–19; TEMP 36–36.6; O2SAT 94–99; BMI 38.1
[2023-04-13] MEDS: Lactated Ringers 1,000 ML 80 ML IV (10:57)
[2023-04-13] MEDS: Acetaminophen 500 MG TAB 1000 MG PO (11:00)
[2023-04-13] MEDS: Gabapentin 300 MG CAP 600 MG PO (11:00)
--- NOTE | 2023-04-13 11:21 | W.ANESPRE ---
General Info Date of Service Date Performed: 04/13/23 Height: 5 ft Weight: 88.6 kg Body Mass Index (BMI): 38.1 Surgical Procedure: Operation Date: 04/13/23 11:40 Proposed Procedure Side Surgeon p EXCISION THROMBOSED HEMORRHOID Marisel Camilo, DO Meds Allergies and Home Medications Allergies Allergy/AdvReac Type Severity Reaction Status Date / Time Penicillins Allergy Intermediate Rash Verified 04/13/23 10:43 Sulfa (Sulfonamide Allergy Intermediate Skin Rash Verified 04/13/23 10:43 Antibiotics) tetracycline Allergy Intermediate Skin Rash Verified 04/13/23 10:43 nickel Allergy Mild Other (See Verified 04/13/23 10:43 Comment) TDAP AdvReac Uncoded 04/13/23 10:43 Home Medication Medication Instructions Recorded calcium carbonate 500 mg calcium 1,200 mg PO DAILY 01/12/17 (1,250 mg) chewable tablet multivitamin (One Daily 1 ea PO DAILY 01/12/17 Multivitamin tablet) turmeric root extract 538 mg 1,076 mg PO DAILY 08/17/18 capsule acetaminophen 325 mg tablet 650 mg PO Q6H PRN #90 tabs 10/22/18 diclofenac sodium 1 % topical gel 2 - 4 g topical QID PRN arthritis 07/29/22 (Voltaren Arthritis Pain) pain #100 grams clobetasol 0.05 % topical ointment 1 applic topical DAILY PRN 10/30/22 psoriasis #60 grams allopurinol 100 mg tablet 100 mg PO DAILY #90 tab-caps 03/26/23 atorvastatin 40 mg tablet 40 mg PO QHS #90 tabs 03/26/23 fluoxetine 10 mg capsule 10 mg PO DAILY #90 tab-caps 03/26/23 lisinopril 10 mg tablet 10 mg PO DAILY #90 tab-caps 03/26/23 meloxicam 15 mg tablet 15 mg PO DAILY PRN pain #90 tabs 03/26/23 metoprolol tartrate 50 mg tablet 50 - 100 mg PO DAILY #270 tabs 03/26/23 omeprazole 20 mg capsule,delayed 20 mg PO DAILY #90 tab-caps 03/26/23 release melatonin 10 mg tablet 10 mg PO DAILY 04/12/23 Current Visit Medications: Current Medications Generic Name Dose Route Start Last Admin Trade Name Freq PRN Reason Stop Dose Admin Acetaminophen 1,000 mg 04/13/23 06:00 04/13/23 11:00 Acetaminophen 500 Mg Tab PO 05/12/23 23:59 1,000 mg PREOP SHAHID Administration Dibucaine 28 gm 04/13/23 14:00 Dibucaine 1% 28 Gm Tube TP 05/13/23 13:59 TID SHAHID Gabapentin 600 mg 04/13/23 06:00 04/13/23 11:00 Gabapentin 300 Mg Cap PO 05/12/23 23:59 600 mg PREOP SHAHID Administration Ringer's Solution 1,000 mls @ 80 mls/hr 04/13/23 06:00 04/13/23 10:57 IV 05/12/23 23:59 80 mls/hr INFUSION SHAHID Administration Ondansetron HCl 4 mg/ Sodium 52 mls @ 200 mls/hr 04/12/23 22:22 Chloride IVPB 05/12/23 22:21 Q6H PRN PRN IV Miscellaneous Supplies 1 each 04/13/23 06:00 Iv Access IV 05/12/23 23:59 DIRECTED SHAHID Morphine Sulfate 2 mg 04/12/23 22:22 Morphine 4 Mg/Ml Syr IVP 05/12/23 22:21 Q1H PRN PRN Sodium Chloride 0 ml 04/13/23 06:00 Normal Saline Flush 10 Ml Syr IV 05/12/23 23:59 PRN PRN Sodium Chloride 0 ml 04/13/23 06:00 Normal Saline 10 Ml Vial IJ 05/12/23 23:59 DIRECTED PRN Sterile Water 0 ml 04/13/23 06:00 Water,Injection,Sterile 10 Ml Vial IJ 05/12/23 23:59 DIRECTED PRN PFSH Active Problems Active Problems: Problem Status Onset Code Thrombosed external hemorrhoid K64.5 Rectal bleeding K62.5 External hemorrhoids K64.4 Allergic rhinitis J30.9 Depressive disorder F32.9 Essential hypertension I10 Essential tremor G25.0 GERD (gastroesophageal reflux disease) K21.9 Gout M10.9 Hyperlipidemia E78.5 Obesity E66.9 Primary osteoarthritis of left knee M17.12 Osteopenia M85.80 Hyperglycemia R73.9 Primary osteoarthritis of right knee M17.11 Uterine mass N85.8 Medical History Medical History 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 Prediabetes Surgical History Surgical History History of carpal tunnel surgery of left wrist (10/31/03) History of carpal tunnel surgery of right wrist (12/29/02) History of total right hip arthroplasty (10/21/18) Hx of cataract surgery S/P cholecystectomy S/P total hysterectomy and bilateral salpingo-oophorectomy (03/09/23) Tobacco Smoking/Tobacco Use Status: Never Passive smoking exposure: Yes Alcohol Alcohol Intake: never Substance Use Substance use: Never Substance use type: does not use Details: 04/13/23 pt reports she used hemp cream for knees yesterday Prental History History 0 Para Hx # Term Pregnancies Multiple births Hx # Pregnancies Ectopic pregnancies AB induced Hx Number of Living Children AB spontaneous Vital Signs and Lab Results Vital Signs Most Recent Vital Signs in EMR: Most Recent Vital Signs Temp Pulse Resp BP Pulse Ox 36.4 C L 74 16 137/86 94 04/13/23 10:34 04/13/23 10:34 04/13/23 10:34 04/13/23 10:34 04/13/23 10:34 Lab Results Blood Type / Crossmatch: No Data to Display Complete Blood Count: No Data to Display Complete Metabolic Panel: No Data to Display Liver Function Panel: No Data to Display Coagulation Panel: No Data to Display Cardiac Panel: No Data to Display Arterial Blood Gas: No Data to Display Venous Blood Gas: No Data to Display Pancreas Panel: No Data to Display Thyroid Panel: No Data to Display Infectious Disease: No Data to Display Blood Cultures: No Data to Display Toxicology Panel: No Data to Display Anesthesia Assessment and Plan Anesthesia History Personal History: No History of Anesthesia Complications Family History: No Family History of Anesthesia Complications Exercise Tolerance Exercise Tolerance: Metabolic Equivalents>4 Pertinent Negatives Pertinent Negatives: No Symptoms of GERD (well controlled with medication), No Major Cardiovascular Symptoms or Complaints, No Major Pulmonary Symptoms or Complaints and No History of CVA/TIA Cardiac & Pulmonary Exam Cardiac Exam: Normal S1/S2 Heart Sounds Pulmonary Exam: Clear Bilateral Breath Sounds Implantable Cardiac Device Does patient have a Pacemaker or an ICD?: No Airway Exam Known Difficult Airway: No Mallampati Class: 3 Mouth Opening: Normal (> 3cm) Thyromental Distance: Less than 3 cm Neck Range of Motion: Full ROM Neck Circumference: Normal Teeth Condition: Generalized Poor Dentition, Removable Dentures/Plates Upper and Removable Dentures/Plates Lower Airway Comments: only 4 bottom teeth ASA Classification ASA Score: ASA 2 Emergency Case?: No NPO Status NPO Status: NPO Clears >2 hours, Solids >8 hours Anesthesia Plan Resuscitation Status: Full Code Anesthesia Technique: Spinal Anesthesia Airway Planned: Natural Airway Monitors Used: Standard Monitors
[2023-04-13] MEDS: Dibucaine 1% 28 GM TUBE TP (12:50)
--- NOTE | 2023-04-13 12:55 | HEM_PTH ---
PATIENT: Mary Beth Chand LOC: [facility] U#:[id number] AGE/SX: 72/F ROOM: RE04/13/[address]: Marisel Camilo : 1950 BED: DIS: 04/13/2023 SPEC #: [id number] RECD: 04/13/23 16:21 STATUS: AGUSTIN REHeike #: [id number] CHET: 04/13/23 12:[address]: Marisel Camilo DEPT: Surgical Specimen RECD BY: Shahnaz Scherer ENTERED: 04/13/23 16:22 SP TYPE: Hem OTHR DR: MICHAEL Salvador Tissues: 1 - HEMORRHOIDS Procedures: GROSS AND MICRO LEVEL 3 Comments: [id number]
--- NOTE | 2023-04-13 13:55 | W.ANESPOSTOP ---
Postoperative Evaluation Date, Time and Location Date Performed: 04/13/23 Time Performed: 13:55 Patient Location: Day Surgery Unit Vital Signs Most Recent Imported Vital Signs: Most Recent Vital Signs Temp Pulse Resp BP Pulse Ox 36.3 C L 69 16 115/70 98 04/13/23 13:32 04/13/23 13:32 04/13/23 13:32 04/13/23 13:32 04/13/23 13:32 Pain Score Most Recent Pain Score: Most Recent Pain Score Pain Level 0 04/13/23 13:32 Assessment Mental Status: Awake (Alert & Oriented to Patient Baseline) Airway and Respiratory Function: Patent airway with normal (patient baseline) respiratory exam Cardiovascular Function: Hemodynamically Stable Hydration Status: Adequately Hydrated Nausea & Vomiting: No Nausea or Vomiting Pain: Pt. Denies Any Pain Peripheral Nerve Block: Patient did not receive a nerve block
== END 2023-04-13 15:45 | disposition home or self-care (01) ==
PROVIDERS: PCP Nurse Practitioner Family; Visit Provider Surgery
PROC: (CPT 46320; principal; 2023-04-13 11:30)
DX: K64.5 Perianal venous thrombosis (principal); I10 Essential (primary) hypertension; E66.9 Obesity, unspecified
CPT/HCPCS: 46320; 88304; J2250

== ENCOUNTER → 2023-04-19 13:24 | Outpatient (BNVA) | payer MEDICARE, SELFPAY | PROVIDERS: PCP Nurse Practitioner Family; Referring Provider Nurse Practitioner Family; Visit Provider Surgery | DX: Z48.815 Encounter for surgical aftercare following surgery on the digestive system (principal); K64.5 Perianal venous thrombosis; K64.4 Residual hemorrhoidal skin tags ==

== ENCOUNTER → 2023-05-03 13:18 | Outpatient (BNVA) | payer MEDICARE, SELFPAY | PROVIDERS: PCP Nurse Practitioner Family; Referring Provider Nurse Practitioner Family; Visit Provider Surgery | DX: Z48.815 Encounter for surgical aftercare following surgery on the digestive system (principal); K64.5 Perianal venous thrombosis; K64.4 Residual hemorrhoidal skin tags ==

== ENCOUNTER 2023-06-04 02:18 | Outpatient (CLI) | payer MEDICARE, SELFPAY ==
[2023-06-04 12:32] LABS: HGB 14.1 g/dL (11.2-15.7); MCH 31.4 pg (27.0-33.0); MCHC 34.4 % (32.0-36.0); MCV 91 fL (80-95); MPV 9.3 fL (8.0-11.0); Platelet Count 289 10^3/uL (130-400); RBC 4.49 10^6/uL (3.93-5.22); RDW 12.6 % (11.7-14.6); RDW-SD 42.1 fL; WBC 11.54 10^3/uL (4.4-10.8)
[2023-06-04 13:18] LABS: Anion Gap 12.6 mmol/L (3-11); BUN 11 mg/dL (7-18); CO2 24.4 mmol/L (21.0-32.0); CREATININE 0.6 mg/dL (0.55-1.02); Calcium 9.5 mg/dL (8.5-10.1); Chloride 101 mmol/L (98-107); Glucose 99 mg/dL (74-106); Sodium 138 mmol/L (136-145)
== END 2023-06-04 02:19 | disposition home or self-care (01) ==
LOC: LBO 02:18
PROVIDERS: PCP Nurse Practitioner Family; Visit Provider Student in an Organized Health Care Education/Training Program
DX: M25.561 Pain in right knee (principal); M25.562 Pain in left knee; M17.0 Bilateral primary osteoarthritis of knee; Z01.818 Encounter for other preprocedural examination; Z01.812 Encounter for preprocedural laboratory examination
CPT/HCPCS: 36415; 80048; 85027

== ENCOUNTER 2023-06-04 10:50 | Outpatient (CLI) | payer MEDICARE, SELFPAY ==
--- NOTE | 2023-06-04 11:41 | DI.RAD_ITS ---
Exam(s) XR KNEE LT 1V XR STANDING ALIGNMENT XR KNEE RT 1V EXAM: XR STANDING ALIGNMENT CLINICAL HISTORY: pre op. TECHNIQUE: 2D digital imaging was performed. Standing AP views were performed from the pelvis throu gh the ankles. COMPARISON: CR XR KNEE LT 1V from 06/04/2023 CR XR KNEE RT 1V from 06/04/2023 FINDINGS: BONES: No acute fracture is present. No bony destructive lesion is seen. Leg length discrepancy: No significant overall leg length discrepancy. JOINTS: Knees: Severe narrowing the medial femoral tibial joint spaces bilaterally, left greater than right. The ankle joints show symmetric mild narrowing bilaterally.. Hips: Right hip prosthesis appears to be in satisfactory alignment. Mild degenerative changes of the left hip.. SOFT TISSUE: Normal. IMPRESSION: Advanced degenerative changes of both knees, greatest in the medial femoral tibial joints. No significant leg length discrepancy. DATA REPOSITORY: RADIATION DOSE DELIVERED:
== END 2023-06-04 10:51 | disposition home or self-care (01) ==
LOC: DIORS 10:50
PROVIDERS: PCP Nurse Practitioner Family; Visit Provider Physician Assistant
DX: M17.0 Bilateral primary osteoarthritis of knee (principal)
CPT/HCPCS: 73560; 77073

== ENCOUNTER 2023-06-15 07:38 | Observation (INO) | payer MEDICARE, SELFPAY ==
[2023-06-15] VITALS (9 sets, daily range): BP systolic 109–130; BP diastolic 52–81; PULSE 62–91; RESP 15–22; TEMP 36.3–36.7; O2SAT 91–98; BMI 37.1
[2023-06-15] MEDS: Celecoxib 200 MG CAP 400 MG PO (08:59)
[2023-06-15] MEDS: Gabapentin 300 MG CAP PO ×2 (09:00→21:33)
[2023-06-15] MEDS: Acetaminophen 500 MG TAB 1000 MG PO ×3 (09:00→20:09)
[2023-06-15] MEDS: Lactated Ringers 1,000 ML 80 ML IV ×2 (09:19→20:10)
--- NOTE | 2023-06-15 09:31 | W.ANESPRE ---
General Info Date of Service Date Performed: 06/15/23 Height: 5 ft 0.75 in Weight: 88.4 kg Body Mass Index (BMI): 37.1 Surgical Procedure: Operation Date: 06/15/23 12:05 Proposed Procedure Side Surgeon p Knee Total Arthroplasty Bilateral w/Cementless CR Bilateral Lucho Talbot MD Meds Allergies and Home Medications Allergies Allergy/AdvReac Type Severity Reaction Status Date / Time Penicillins Allergy Intermediate Rash Verified 06/15/23 08:52 Sulfa (Sulfonamide Allergy Intermediate Skin Rash Verified 06/15/23 08:52 Antibiotics) tetracycline Allergy Intermediate Skin Rash Verified 06/15/23 08:52 nickel Allergy Mild Other (See Verified 06/11/23 15:26 Comment) TDAP AdvReac Uncoded 06/15/23 08:52 Home Medication Medication Instructions Recorded calcium carbonate 500 mg calcium 1,200 mg PO DAILY 01/12/17 (1,250 mg) chewable tablet multivitamin (One Daily 1 ea PO DAILY 01/12/17 Multivitamin tablet) turmeric root extract 538 mg 1,076 mg PO DAILY 08/17/18 capsule clobetasol 0.05 % topical ointment 1 applic topical DAILY PRN 10/30/22 psoriasis #60 grams allopurinol 100 mg tablet 100 mg PO DAILY #90 tab-caps 03/26/23 atorvastatin 40 mg tablet 40 mg PO QHS #90 tabs 03/26/23 lisinopril 10 mg tablet 10 mg PO DAILY #90 tab-caps 03/26/23 meloxicam 15 mg tablet 15 mg PO DAILY PRN pain #90 tabs 03/26/23 metoprolol tartrate 50 mg tablet 50 - 100 mg PO DAILY #270 tabs 03/26/23 omeprazole 20 mg capsule,delayed 20 mg PO DAILY #90 tab-caps 03/26/23 release melatonin 10 mg tablet 10 mg PO HS 04/12/23 dibucaine 1 % rectal ointment 1 applic NM QID PRN #56 grams 04/13/23 psyllium 1 packet PO BID PRN 06/11/23 acetaminophen 500 mg tablet 1,000 mg PO Q8H PRN pain #90 tabs 06/15/23 aspirin 81 mg tablet,delayed 81 mg PO BID 30 days #60 tabs 06/15/23 release dexamethasone 4 mg tablet 4 mg PO DAILY #2 tabs 06/15/23 docusate sodium 100 mg capsule 100 mg PO BID #30 caps 06/15/23 (Colace) gabapentin 300 mg capsule 300 mg PO QHS #14 caps 06/15/23 oxycodone 5 mg tablet 5 mg PO Q4H PRN #18 tabs 06/15/23 Current Visit Medications: Current Medications Generic Name Dose Route Start Last Admin Trade Name Freq PRN Reason Stop Dose Admin Acetaminophen 1,000 mg 06/15/23 06:00 06/15/23 09:00 Acetaminophen 500 Mg Tab PO 06/15/23 16:00 1,000 mg PREOP SHAHID Administration Acetaminophen 1,000 mg 06/15/23 08:30 Acetaminophen 500 Mg Tab PO 07/15/23 08:29 TID SHAHID Aspirin 81 mg 06/15/23 08:30 Aspirin E.C. 81 Mg Tabec PO 07/15/23 08:29 BID SHAHID Celecoxib 400 mg 06/15/23 06:00 06/15/23 08:59 Celecoxib 200 Mg Cap PO 06/15/23 16:00 400 mg PREOP SHAHID Administration Dexamethasone 4 mg 06/15/23 08:30 Dexamethasone 4 Mg Tab PO 06/16/23 08:31 DAILY SHAHID Docusate Sodium 100 mg 06/15/23 07:37 Docusate Sodium 100 Mg Cap PO 07/15/23 07:36 BID PRN PRN Constipation Gabapentin 300 mg 06/15/23 06:00 06/15/23 09:00 Gabapentin 300 Mg Cap PO 06/15/23 16:00 300 mg PREOP SHAHID Administration Gabapentin 300 mg 06/15/23 22:00 Gabapentin 300 Mg Cap PO 07/15/23 21:59 HS SHAHID Hydromorphone HCl 0.5 mg 06/15/23 07:37 Hydromorphone 2 Mg/Ml Syr IVP 07/15/23 07:36 Q2H PRN PRN Ringer's Solution 1,000 mls @ 80 mls/hr 06/15/23 06:00 06/15/23 09:19 IV 06/24/23 23:59 80 mls/hr INFUSION SHAHID Administration Cefazolin Sodium/Dextrose 2 gm in 50 mls @ 100 mls/hr 06/15/23 06:00 Ancef Duplex IVPB 06/15/23 23:59 PREOP SHAHID Tranexamic Acid 1,000 mg/ 60 mls @ 360 mls/hr 06/15/23 06:00 Sodium Chloride IVPB 06/15/23 16:00 PREOP SHAHID Cefazolin Sodium/Dextrose 1 gm in 50 mls @ 100 mls/hr 06/15/23 08:00 Ancef Duplex IVPB 06/16/23 00:29 Q8H [facility] IV Miscellaneous Supplies 1 each 06/15/23 06:00 Iv Access IV 06/24/23 23:59 DIRECTED SHAHID Meloxicam 15 mg 06/16/23 07:30 Meloxicam 15 Mg Tab PO 07/16/23 07:29 DAILY SHAHID Ondansetron HCl 4 mg 06/15/23 07:37 Ondansetron 4 Mg/2 Ml Vial IVP 07/15/23 07:36 Q6H PRN PRN Nausea Oxycodone HCl 0 mg 06/15/23 07:37 Oxycodone 5 Mg Tab PO 07/15/23 07:36 Q3H PRN PRN Pain Pantoprazole Sodium 40 mg 06/16/23 07:30 Pantoprazole 40 Mg Tabcr PO 07/16/23 07:29 DAILY@0730 [facility] Polyethylene Glycol 17 gm 06/15/23 07:37 Polyethylene Glycol 3350 17 Gm Packet PO 07/15/23 07:36 BID PRN PRN Constipation Sodium Chloride 0 ml 06/15/23 06:00 Normal Saline Flush 10 Ml Syr IV 06/24/23 23:59 PRN PRN Sodium Chloride 0 ml 06/15/23 06:00 Normal Saline 10 Ml Vial IJ 06/24/23 23:59 DIRECTED PRN Sterile Water 0 ml 06/15/23 06:00 Water,Injection,Sterile 10 Ml Vial IJ 06/24/23 23:59 DIRECTED PRN PFSH Active Problems Active Problems: Problem Status Onset Code Essential hypertension I10 Hyperlipidemia E78.5 Primary osteoarthritis of left knee M17.12 Primary osteoarthritis of right knee M17.11 Chronic diarrhea K52.9 GERD (gastroesophageal reflux disease) K21.9 Depressive disorder F32.9 Psoriasis L40.9 Gout M10.9 Obesity E66.9 Osteopenia M85.80 Allergic rhinitis J30.9 Essential tremor G25.0 Medical History Medical History 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 Prediabetes Surgical History Surgical History H/O hemorrhoidectomy (03/2023) thrombosed hemorrhoid History of carpal tunnel surgery of left wrist (10/31/03) History of carpal tunnel surgery of right wrist (12/29/02) History of total right hip arthroplasty (10/21/18) Hx of cataract surgery S/P cholecystectomy S/P total hysterectomy and bilateral salpingo-oophorectomy (03/09/23) Tobacco Smoking/Tobacco Use Status: Never Passive smoking exposure: No Alcohol Alcohol Intake: never Substance Use Substance use: Never Substance use type: does not use Prental History History 0 Para Hx # Term Pregnancies Multiple births Hx # Pregnancies Ectopic pregnancies AB induced Hx Number of Living Children AB spontaneous Vital Signs and Lab Results Vital Signs Most Recent Vital Signs in EMR: Most Recent Vital Signs Temp Pulse Resp BP Pulse Ox 36.5 C 62 17 128/80 98 06/15/23 08:41 06/15/23 08:41 06/15/23 08:41 06/15/23 08:41 06/15/23 08:41 Lab Results Blood Type / Crossmatch: No Data to Display Complete Blood Count: White Blood Count 11.54 10^3/uL (4.4-10.8) H 06/04/23 12:20 Red Blood Count 4.49 10^6/uL (3.93-5.22) 06/04/23 12:20 Hemoglobin 14.1 g/dL (11.2-15.7) 06/04/23 12:20 Hematocrit 41.0 % (36.0-46.0) 06/04/23 12:20 Platelet Count 289 10^3/uL (130-400) 06/04/23 12:20 Complete Metabolic Panel: Sodium 138 mmol/L (136-145) 06/04/23 12:20 Potassium 4.0 mmol/L (3.5-5.1) 06/04/23 12:20 Chloride 101 mmol/L (98-107) 06/04/23 12:20 Carbon Dioxide 24.4 mmol/L (21.0-32.0) 06/04/23 12:20 BUN 11 mg/dL (7-18) 06/04/23 12:20 Creatinine 0.6 mg/dL (0.55-1.02) 06/04/23 12:20 Est GFR (CKD-EPI 2020) 96.50 (mL/min/1.73m2) 06/04/23 12:20 Calcium 9.5 mg/dL (8.5-10.1) 06/04/23 12:20 Glucose 99 mg/dL (74-106) 06/04/23 12:20 Hemoglobin A1c 5.5 % (4.5-5.7) 05/21/23 12:55 Liver Function Panel: No Data to Display Coagulation Panel: No Data to Display Cardiac Panel: No Data to Display Arterial Blood Gas: No Data to Display Venous Blood Gas: No Data to Display Pancreas Panel: No Data to Display Thyroid Panel: No Data to Display Infectious Disease: No Data to Display Blood Cultures: No Data to Display Toxicology Panel: No Data to Display Anesthesia Assessment and Plan Anesthesia History Personal History: No History of Anesthesia Complications Family History: No Family History of Anesthesia Complications Exercise Tolerance Exercise Tolerance: Metabolic Equivalents>4 Pertinent Negatives Pertinent Negatives: No Symptoms of GERD (well controlled with medication), No Major Cardiovascular Symptoms or Complaints, No Major Pulmonary Symptoms or Complaints and No History of CVA/TIA Cardiac & Pulmonary Exam Cardiac Exam: Normal S1/S2 Heart Sounds Pulmonary Exam: Clear Bilateral Breath Sounds Implantable Cardiac Device Does patient have a Pacemaker or an ICD?: No Airway Exam Known Difficult Airway: No Mallampati Class: 3 Mouth Opening: Normal (> 3cm) Thyromental Distance: Less than 3 cm Neck Range of Motion: Full ROM Neck Circumference: Normal Teeth Condition: Generalized Poor Dentition, Removable Dentures/Plates Upper and Removable Dentures/Plates Lower Airway Comments: only 4 bottom teeth ASA Classification ASA Score: ASA 2 Emergency Case?: No NPO Status NPO Status: NPO Clears >2 hours, Solids >8 hours Anesthesia Plan Resuscitation Status: Full Code Anesthesia Technique: Spinal Anesthesia Airway Planned: Natural Airway Pain Management: Surgeon and patient request nerve block Monitors Used: Standard Monitors Preoperative Comments:: HTN (lisinopril, metoprolol), GERD (omeprazole)
--- NOTE | 2023-06-15 10:33 | W.ANESNERVE ---
Nerve Block Single Injection Procedure Date and Time Date Performed: 06/15/23 Procedure Start: 10:07 Location Where Procedure Performed Procedure Location: Day Surgery Unit Reason Performed: Postoperative Analgesia Requesting Provider: Lucho Talbot Timeout Performed Timeout Performed: Yes Monitoring Used ECG, Blood Pressure and SpO2 Sterility Sterility: Hand Hygiene, Surgical Cap, Surgical Mask, Sterile Gloves and Chlorhexidine Sedation Given During Procedure Sedation Given (Indicate Dose Given): Versed IV Dose:: 2 mg Patient Mental Status Patient Mental Status: Sedate with meaningful communication Nerve Block 1st Nerve Block: Laterality: Bilateral Block Type: Adductor Canal Ultrasound Image Saved?: Yes Needle / Catheter Used: 100mm SonoPlex II Local Anesthetic Bolus (Indicate Dose Given): Lidocaine used for local infiltration of skin, Injected in 3-5ml increments after negative blood aspiration, Half of Total block solution given into each side and Bupivacaine 0.25% Dose:: 30 ml Additives (Indicate Dose Given): Normal Saline (for hydrodissection) Ultrasound: Sterile probe cover and gel used Nerve Stimulator: Not Used Paresthesia: None Post Procedure Pain score (0-10): 0 Procedure Tolerated: No Complications and Patient tolerated well Procedure Outcome: Successful Performed By: Martin Pang
[2023-06-15] MEDS: ceFAZolin 1 GM/50 ML BAG IVPB ×3 (10:40→23:21)
--- NOTE | 2023-06-15 13:36 | W.PM.OP ---
Date of service: 06/15/23 Time of Service: 13:36 Operative Note Operative Note DATE OF PROCEDURE: 06/15/23 PRE-OP DIAGNOSIS: Bilateral Knee Osteoarthritis POST-OP DIAGNOSIS: same PROCEDURE: Bilateral Total Knee Replacement with Intraoperative Navigation SURGEON: Lucho Talbot ELECTRICAL TECHNICIAN: Marisel Darden ANESTHESIA TYPE: Spinal Refer to Anesthesia Record ESTIMATED BLOOD LOSS: 150 PATHOLOGY: none sent TOURNIQUET TIME: 0 COMPLICATIONS: None Patient was transported to: PACU Patient's condition: stable Implants: RIGHT: 1. Depuy Attune Cementless Cruciate Retaining Femoral Component, Size 5 2. Depuy Attune Cementless Fixed Bearing Tibial Component, Size 4 3. Depuy Attune 5x7mm CR/FB Medial Lipped Poly 4. Depuy Attune Patellar Component, Size 35 LEFT: 1. Depuy Attune Cementless Cruciate Retaining Femoral Component, Size 5 2. Depuy Attune Cementless Fixed Bearing Tibial Component, Size 4 3. Depuy Attune 5x5mm CR/FB Medial Lipped Poly 4. Depuy Attune Patellar Component, Size 32 Indications: I have seen Mary Beth in clinic for symptoms of bialteral knee arthritis, confirmed with radiographic findings. Mary Beth has exhausted nonoperative methods and was having significant limitations in daily function and desired better function and less pain. I discussed the technical details of a knee replacement. I explained the risks of the procedure to include, but not limited to, bleeding, infection, pain, stiffness, fracture, damage to nerves and vessels, damage to muscles and tendons, loosening, need for repeat procedure, blood clot and cardiopulmonary demise. Despite these risks, She elected to proceed. Findings: There was significant signs of arthritis throughout both knees, mostly in the medial compartment but with changes throughout. Procedure Description: Mary Beth was greeted in the preoperative holding area where the correct side was identified and marked. The consent was reviewed with the patient and signed. The history and physical was updated. All questions were answered. Preoperative mediacations were administered: Acetaminophen 1000mg, Celebrex 400mg, and Gabapentin 300mg. An adductor canal block was then administered by the anesthesia team in the PACU. Mary Beth was taken back to the operating room. A spinal anesthestic was then administered. The patient was placed into the supine position on the operating room table. Posts were placed for positioning during the procedure. All bony prominences were well padded. Prophylactic antibiotics in the form of Cefazolin were administered. 1g of Tranxemic Acid was given intravenously within 30 minutes of incision. Both legs were then prepped with Chloraprep and draped in a standard fashion with impervious stockinette. RIGHT KNEE: A second prep with Chloraprep was performed prior to application of Iodine impregnated skin protection of the right knee. A timeout to confirm correct identity, side and site, procedure, allergies, anesthesia, and medical concerns was performed. With the knee in some flexion, a midline incision was made overlying the knee. Full thickness skin flaps were raised once the extensor mechanism was encountered. These were raised medially and laterally. Any bleeding was controlled with electrocautery. Once the extensor mechanism was fully exposed, a medial parapatellar arthrotomy was performed in a flexed position. All bleeding from the arthrotomy and the geniculate arteries was coagulated. A medial subperiosteal peel was performed with electrocautery to the midcoronal plane. Due to the significant varus deformity the entire medial tibial plateau was exposed. The fat pad was removed while keeping the patellar tendon protected. The anterior distal femur synovium was removed for later visualization. The ACL and PCL were resected and the anterior horn of the lateral meniscus was transected. The knee was then flexed with the patella everted. Large osteophytes from the tibia were removed. Large osteophytes from the femur were removed. A single starting pin was then placed 1cm anterior to the PCL insertion and the notch in the direction of the femoral head. The OrthoAlign device was applied over the pin. It was oriented to be in line with the epicondylar axis and the trochlear groove. It was then pinned into place. The navigation computer was then turned on and calibrated. The distal femur cut was set at 0 degrees varus/valgus and 3 degrees flexion. The distal femur cutting guide then was positioned for a 9mm cut. The distal femur was cut with an oscillating saw while protecting the soft tissues. The tibia was then addressed. The OrthoAlign device was placed over the tibial tubercle and medial tibia and secured into position. Once again, OrthoAlign was calibrated and then set for a 1.5 degree varus cut and 5 degrees of posterior slope. With this locked into position, the cut thickness stylus was used to assess cut thickness. The medial side, most involved side, was set for a 4mm cut. This was then held in position and pinned into place with 2 additional pins and a cross pin for stability. The medial and lateral collateral ligaments were protected and the cut was performed. With this completed, it was assessed and noted to be of appropriate dimensions. The guide and OrthoAlign was removed. A spacer block was inserted and the knee was brought into extension to ensure enough space was present. The femur was then sized as a size 5. The Orthoalign gap balancing device was then placed in extension. This was used to ensure that the ligaments were properly balanced with up to 2 to 3 mm laxity laterally compared medially. The extension gap was measured as 18mm. The knee was then brought into 90 degrees of flexion and the ligament wireless sales consultant was once again placed. Under the same amount of force the flexion gap was measured. The Attune specific jig was placed and the flexion gap was made to match the extension gap. The 4-in-1 cutting guide was the placed. An jf wing was used to confirm appropriate position of the anterior cut to avoid notching. This cutting guide was ensured to be flush on the cut surface and then pinned into place with headed pins. While protecting the soft tissues, quad tendon, and collateral ligaments, the anterior and posterior cuts were performed with a saw. The central two pins were removed and the posterior and anterior chamfers were cut next. The notch-cutting guide was placed. This was pinned to lateralize the femoral component as much as possible while keeping it flush on the cut surface. This was then pinned into position. A saw was used to make the notch cut. A rasp smoothed the cut surfaces. The medial and lateral menisci were removed. A trial femoral component was then inserted, impacted down to the cut surfaces, and the lug holes were drilled. A provisional trial tibial component was placed and the knee was brought through range of motion. There was noted to be excellent extension and flexion. There was no significant instability. The patella was tracking without thumbs. A size 7mm polyethylene component provided the best range of motion and stability with less than 2mm gapping with medial and lateral stress and full extension without significant hyperextension. The tibial cut surface was fully exposed. The tibia was then sized as a 4. The tibia had been previously marked during trialing to correspond to the center of the tibial component to help with rotation. The trial was aligned to this himanshu, approximately rotated to the medial 3rd of the tibial tubercle. The trial was pinned into place. The tibia was prepared with a reamer and a keel punch and lug holes. The knee was then brought into extension and the patella was measured as 23mm. Using the patellar clamp and cut guide, this was resected to a flat surface with at least 13mm of thickness remaining. The size 35 patella fit the best. This was oriented and then clamped into position. The lugs were drilled. The trial components were removed. The final components were opened on the back table. The periosteal and capsular tissues, especially posteriorly, around the knee were then systematically injected with a periarticular cocktail consisting of 246mg of Ropivacaine, 0.5mg of Epinephrine, 0.08mg of Clonidine, and 30mg of Ketorolac, diluted to 100cc. On the back table, with the implants opened, the cement was mixed. One batch of high viscosity cement was prepared with vacuum assistance. After the cement was ready a small amount was placed on the cut surface of the patella and the patellar button was clamped into position and held. While the cement was hardening, the cementless knee components were placed. Starting with the tibial component, the tibia was subluxed anteriorly and the lug holes of the component were lined up. The tibia was then impacted with an impactor and mallet until the tibial component was in contact with the tibia. Then, the femoral component was inserted. The lug holes were aligned and the component was impacted into position. The final polyethylene component was inserted. The knee was irrigated with Surgiphor Betadine solution. This was allowed to sit in the knee for 3 minutes and then it was thoroughly irrigated out with saline. After the cement had finally cured, approximately 15min, the clamp was removed from the patella and the knee was taken through range of motion. The patella was tracking with a no-thumbs technique. The capsule was then reapproximated with a No. 1 Vicryl at multiple locations. The capsule was finally closed with a No. 2 Stratafix, barbed suture. Deep tissues were then reapproximated with 0 Vicryl and 2-0 Vicryl. The second dosing of 1g TXA was started. The skin was closed with a running 3-0 Monocryl in a subcuticular fashion. This was reinforced with skin glue. This wound was covered with a towel and attention was turned to the left knee. LEFT KNEE: A second prep with Chloraprep was performed prior to application of Iodine impregnated skin protection. A timeout to confirm correct identity, side and site, procedure, allergies, anesthesia, and medical concerns was performed. With the knee in some flexion, a midline incision was made overlying the knee. Full thickness skin flaps were raised once the extensor mechanism was encountered. These were raised medially and laterally. Any bleeding was controlled with electrocautery. Once the extensor mechanism was fully exposed, a medial parapatellar arthrotomy was performed in a flexed position. All bleeding from the arthrotomy and the geniculate arteries was coagulated. A medial subperiosteal peel was performed with electrocautery to the midcoronal plane. Due to the significant varus deformity the entire medial tibial plateau was exposed. The fat pad was removed while keeping the patellar tendon protected. The anterior distal femur synovium was removed for later visualization. The ACL and PCL were resected and the anterior horn of the lateral meniscus was transected. The knee was then flexed with the patella everted. Large osteophytes from the tibia were removed. Large osteophytes from the femur were removed. A single starting pin was then placed 1cm anterior to the PCL insertion and the notch in the direction of the femoral head. The OrthoAlign device was applied over the pin. It was oriented to be in line with the epicondylar axis and the trochlear groove. It was then pinned into place. The navigation computer was then turned on and calibrated. The distal femur cut was set at 0 degrees varus/valgus and 4 degrees flexion. The distal femur cutting guide then was positioned for a 9mm cut. The distal femur was cut with an oscillating saw while protecting the soft tissues. The tibia was then addressed. The OrthoAlign device was placed over the tibial tubercle and medial tibia and secured into position. Once again, OrthoAlign was calibrated and then set for a 1.5 degrees varus cut and 5 degrees of posterior slope. With this locked into position, the cut thickness stylus was used to assess cut thickness. The medial side, most involved side, was set for a 4mm cut. This was then held in position and pinned into place with 2 additional pins and a cross pin for stability. The medial and lateral collateral ligaments were protected and the cut was performed. With this completed, it was assessed and noted to be of appropriate dimensions. The guide and OrthoAlign was removed. A spacer block was inserted and the knee was brought into extension to ensure enough space was present. The femur was then sized as a size 4. The Orthoalign gap balancing device was then placed in extension. This was used to ensure that the ligaments were properly balanced with up to 2 to 3 mm laxity laterally compared medially. The extension gap was measured as 16mm. The knee was then brought into 90 degrees of flexion and the ligament wireless sales consultant was once again placed. Under the same amount of force the flexion gap was measured. The attending specific jig was placed and the flexion gap was made to match the extension gap. The 4-in-1 cutting guide was the placed. An jf wing was used to confirm appropriate position of the anterior cut to avoid notching. This cutting guide was ensured to be flush on the cut surface and then pinned into place with headed pins. While protecting the soft tissues, quad tendon, and collateral ligaments, the anterior and posterior cuts were performed with a saw. The central two pins were removed and the posterior and anterior chamfers were cut next. The notch-cutting guide was placed. This was pinned to lateralize the femoral component as much as possible while keeping it flush on the cut surface. This was then pinned into position. A saw was used to make the notch cut. A rasp smoothed the cut surfaces. The medial and lateral menisci were removed. A trial femoral component was then inserted, impacted down to the cut surfaces, and the lug holes were drilled. A provisional trial tibial component was placed and the knee was brought through range of motion. There was noted to be excellent extension and flexion. There was no significant instability. The patella was tracking without thumbs. A size 5mm polyethylene component provided the best range of motion and stability with less than 2mm gapping with medial and lateral stress and full extension without significant hyperextension. The tibial cut surface was fully exposed. The tibia was then sized as a 4. The tibia had been previously marked during trialing to correspond to the center of the tibial component to help with rotation. The trial was aligned to this himanshu, approximately rotated to the medial 1/3rd of the tibial tubercle. The trial was pinned into place. The tibia was prepared with a reamer and a keel punch and lug holes. The knee was then brought into extension and the patella was measured as 23mm. Using the patellar clamp and cut guide, this was resected to a flat surface with at least 13mm of thickness remaining. The size 32 patella fit the best. This was oriented and then clamped into position. The lugs were drilled. The trial components were removed. The final components were opened on the back table. The periosteal and capsular tissues, especially posteriorly, around the knee were then systematically injected with a periarticular cocktail consisting of 246mg of Ropivacaine, 0.5mg of Epinephrine, 0.08mg of Clonidine, and 30mg of Ketorolac, diluted to 100cc. On the back table, with the implants opened, the cement was mixed. One batch of high viscosity cement was prepared with vacuum assistance. After the cement was ready a small amount was placed on the cut surface of the patella and the patellar button was clamped into position and held. While the cement was hardening, the cementless knee components were placed. Starting with the tibial component, the tibia was subluxed anteriorly and the lug holes of the component were lined up. The tibia was then impacted with an impactor and mallet until the tibial component was in contact with the tibia. Then, the femoral component was inserted. The lug holes were aligned and the component was impacted into position. The final polyethylene component was inserted. The knee was irrigated with Surgiphor Betadine solution. This was allowed to sit in the knee for 3 minutes and then it was thoroughly irrigated out with saline. After the cement had finally cured, approximately 15min, the clamp was removed from the patella and the knee was taken through range of motion. The patella was tracking with a no-thumbs technique. The capsule was then reapproximated with a No. 1 Vicryl at multiple locations. The capsule was finally closed with a No. 2 Stratafix, barbed suture. Deep tissues were then reapproximated with 0 Vicryl and 2-0 Vicryl. The skin was closed with a running 3-0 Monocryl in a subcuticular fashion. This was reinforced with skin glue. A Mepilex silver dressing was applied along with a [id number] JULI wrap. A CryoCuff was applied. Mary Beth was transferred to the hospital bed without difficulty an suffering no apparent complication. She has a good prognosis. Physical therapy will start today and without restrictions, weight-bearing as tolerated. Aspirin 81mg BID will be used for DVT prophylaxis.
--- NOTE | 2023-06-15 14:46 | W.ANESPOSTOP ---
Postoperative Evaluation Date, Time and Location Date Performed: 06/15/23 Time Performed: 14:33 Patient Location: PACU Vital Signs Most Recent Imported Vital Signs: Most Recent Vital Signs Temp Pulse Resp BP Pulse Ox 36.5 C 78 22 118/64 96 06/15/23 14:15 06/15/23 14:30 06/15/23 14:30 06/15/23 14:30 06/15/23 14:30 Pain Score Most Recent Pain Score: Most Recent Pain Score Pain Level 5 06/15/23 14:30 Assessment Mental Status: Awake (Alert & Oriented to Patient Baseline) Airway and Respiratory Function: Patent airway with normal (patient baseline) respiratory exam Cardiovascular Function: Hemodynamically Stable Hydration Status: Adequately Hydrated Nausea & Vomiting: No Nausea or Vomiting Pain: Pain is tolerable per patient Peripheral Nerve Block: Regional nerve block not resolved at time of post operative discharge
--- NOTE | 2023-06-15 17:20 | PT.INIE ---
Date of service: 06/15/23 Time of Service: 16:38 PT Notes Visit Reasons: Bilateral knee DJD Physical Therapy Inpatient Initial Evaluation Date: 06/15/2023 Referring Doctor: BARBIE Lester PT Orders: PT CONSULT: S/P Ortho surgery Precautions: Fall. Standard. WBAT on BLE with AD. Patient Profile/Admitting Diagnosis: Salinas is a 72-year-old female admitted with primary osteoarthritis of the left and right knee and is status post bilateral total knee arthroplasties on postoperative day 0. 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 Equipment Owned/DME: 4WW, FWW, raise toilet seat Subjective: Reports 5/10 pain in bilateral knees at rest and with movement. Denies headache, chest pain, and lightheadedness throughout session. Objective: General Observation: Resting in bed. JULI wraps to BLE. Cryocuff to B knees. IV access through right UE. Nilennie Caoissa present throughout evaluation. High BMI. Mental Status: Alert and oriented as to person, place, time, and purpose. Able to pay attention, focus, and respond appropriately. Pain: 4?5/10 in bilateral knees Vital Signs: Closely monitored by nursing staff ROM: Right Lower Extremity: Hip flexion WFL. Hip abduction WFL. Knee flexion about 0 to 95 degrees. Ankle dorsiflexion WFL. Ankle plantarflexion WFL. Left Lower Extremity: Hip flexion WFL. Hip abduction WFL. Knee flexion about 0 to 95 degrees. Ankle dorsiflexion WFL. Ankle plantarflexion WFL. Strength: Right Lower Extremity: Hip flexors 4/5. Hip abductors 4/5. Knee flexors 3-/5. Knee extensors 4-/5. Ankle dorsiflexors 4-/5. Ankle plantarflexors 4-/5. Left Lower Extremity: Hip flexors 4/5. Hip abductors 4/5. Knee flexors 3-/5. Knee extensors 4-/5. Ankle dorsiflexors 4-/5. Ankle plantarflexors 4-/5. Bed Mobility/Transfers: Supine to sit contact-guard assist Sit to stand contact-guard assist with FWW Stand to sit contact-guard assist with FWW Bed to reclining chair contact-guard assist with FWW Reclining chair to bed contact-guard assist with FWW Gait: Instructed patient with in-room ambulation of 6 steps + 20 feet + 20 feet using FWW with contact-guard assist. Good quad activation on B sides. No increase in pain report. Denied headache, chest pain, and lightheadedness throughout activity. Balance: Static Sitting: Good Dynamic Sitting: Good Static Standing: Fair Dynamic Standing: Fair Special Tests: Mobility Limitations Standardized Measure [facility] AM-PAC 6 clicks Basic Mobility Inpatient Short Form: Raw Score: 18 CMS Score: 47% deficit Informed Consent/Education: Patient was instructed in purpose of PT consult and plan of care. Agreeable to proceed with established PT POC to achieve personal goals. THERA ACT: Trained patient with correct performance of exercises below to maximize motor control, joint flexibility, soft tissue extensibility of the B knee musculature. Quads sets x 5 with 5 sh Gluteal sets x 5 with 5 sh Ankle DF/PF x 10 ASSESSMENT: Patient requires use of a front-wheeled walker to maximize independence and reduce fall risk. Patient presents with clinical signs and symptoms consistent with current/admitting diagnoses that have resulted to mobility limitations, gait instability, generalized weakness, and overall ADL decline as demonstrated by the following impairment level findings: 1. Decreased strength to B knee major muscle groups 2. Impaired sitting/standing balance 3. Impaired activity tolerance 4. Limitation of joint range of motion in B knee flexion Impairments are contributing to the following functional limitations: 1. Decline in bed mobility skills 2. Decline in transfer skills 3. Difficulty with ambulation without assistive device and physical assistance 4. Increased completion time for mobility ADL performance 5. Increased risk for falls 6. Difficulty with managing steps alone safely Patient is assessed as a 52263 moderate complexity based on the following: History: 72-year-old female with past medical history as indicated above Examination: Demonstrable impairment in strength, balance, and mobility level with underlying impairments and functional limitations as exhibited above as well as deficit score of 47% utilizing the [facility] Mobility Inpatient Short Form Presentation: Evolving Decision Makin moderate complexity Goals: Goals X1 week 1. Supine-Sit independent 2. Sit-Supine independent 3. Sit-Stand independent 4. Stand-Sit independent with FWW 5. Bed-Chair independent with FWW 6. Chair-Bed independent with FWW 7. Independent gait on level surface with use of FWW for at least 300 feet without report of pain nor dyspnea 8. Independent with home exercise program 10. Good static and dynamic standing balance/tolerance Plan of Care/Treatment Plan: -1-2x/day, 7 days/week x 1 week. -Plan of care has been reviewed with the CLOTH DYE RANGE OPERATOR providing the service under Physical Therapy direction. -Initiate Physical Therapy intervention for pain management as needed, strengthening, bed mobility, transfers, gait, stairs, balance training, and use of assistive device. -Pre-medicate for pain -Provide written copy for TKA protocol prior to discharge DISCHARGE RECOMMENDATIONS: [] Home with no services [] [] Home with services [specify] [X] Home with outpatient PT. home when medically cleared by orthopedic surgeon. Recommend outpatient PT services in order to optimize functional mobility outcomes and facilitate return to independent community ambulation without an assistive device. [] SNF for continued rehabilitation [] [] [facility] Care [] [] SNF versus LTC based on ability to participate and progress [] TREATMENT CODE/TIME: 31005 x 20 minutes (1 unit), 76243 x 17 minutes (1 unit) beginning at 16:38 PM. Thank you for the opportunity to participate in the care of this patient. Saniya Back PT, DPT, CLT [facility] [place], [place]
[2023-06-15] MEDS: Aspirin E.C. 81 MG TABEC PO (20:10)
[2023-06-15] MEDS: Metoprolol 50 MG TAB 100 MG PO (20:10)
[2023-06-15] MEDS: Atorvastatin 40 MG TAB PO (21:33)
[2023-06-15] MEDS: Melatonin 3 MG TAB 9 MG PO (21:34)
[2023-06-16 03:20] VITALS: BP 114/56; PULSE 89; RESP 18; TEMP 36.1; O2SAT 97
[2023-06-16] MEDS: Aspirin E.C. 81 MG TABEC PO (07:32)
[2023-06-16] MEDS: Acetaminophen 500 MG TAB 1000 MG PO (07:33)
[2023-06-16] MEDS: ceFAZolin 1 GM/50 ML BAG IVPB (07:33)
[2023-06-16] MEDS: Meloxicam 15 MG TAB PO (07:33)
[2023-06-16 07:40] VITALS: BP 95/58; PULSE 76; RESP 16; TEMP 35.9; O2SAT 97
[2023-06-16] MEDS: Allopurinol 100 MG TAB PO (07:46)
[2023-06-16] MEDS: Omeprazole 20 MG CAPCR PO (07:46)
[2023-06-16] MEDS: Dexamethasone 4 MG TAB PO (07:46)
[2023-06-16] MEDS: Multivitamin TAB 1 TAB PO (07:46)
--- NOTE | 2023-06-16 07:52 | DSE_ITS ---
Date of service: 06/16/23 Time of Service: 07:28 DS: Diagnosis Discharge Diagnosis (1) Primary osteoarthritis of left knee: Status: Chronic (2) Primary osteoarthritis of right knee: Status: Chronic Discharge Plan Disposition Patient Disposition: Home Condition: Good Discharge Details Reason For Visit: Bilateral knee DJD Admit Date/Time: 06/15/23 14:48 Admit Provider: Lucho Talbot Attending Provider: Lucho Talbot Primary Care Provider: Diana Yao [facility] Course Hospital Course: Patient was admitted to the medical/surgical floor following the procedure. The surgery was tolerated well without any notable medical, surgical, or anesthetic complications. Mobilization began postoperatively. She was voiding spontaneously. Vitals were stable. Physical therapy worked with the patient and was cleared for discharge home. No acute medical issues. Pain was controlled on oral regimen. Home Meds and New Rx's Prescriptions: New acetaminophen 500 mg tablet 1,000 mg PO Q8H PRN Qty: 90 0RF Rx Instructions: Take two tablets up to every 8 hours as needed for pain aspirin 81 mg tablet,delayed release (DR/EC) 81 mg PO BID 30 Days Qty: 60 0RF docusate sodium [Colace] 100 mg capsule 100 mg PO BID Qty: 30 0RF dexamethasone 4 mg tablet 4 mg PO DAILY Qty: 2 0RF Rx Instructions: Take one tablet once daily for two days gabapentin 300 mg capsule 300 mg PO QHS Qty: 14 0RF Rx Instructions: Take one tablet at bedtime oxycodone 5 mg tablet 5 mg PO Q4H PRNQty: 18 0RF Rx Instructions: Take one tablet up to every 4 hours as needed for severe postoperative pain Continued turmeric root extract 538 mg capsule 1,076 mg PO DAILY multivitamin [One Daily Multivitamin] 1 EACH tablet 1 ea PO DAILY calcium carbonate 500 MG tablet,chewable 1,200 mg PO DAILY clobetasol 0.05 % ointment 1 applic TP DAILY PRN (Reason: psoriasis) Qty: 60 2RF Rx Instructions: Apply to bilateral elbows and other affected areas once a day as needed for psoriasis lisinopril 10 mg tablet 10 mg PO DAILY Qty: 90 3RF allopurinol 100 mg tablet 100 mg PO DAILY Qty: 90 3RF atorvastatin 40 mg tablet 40 mg PO QHS Qty: 90 3RF meloxicam 15 mg tablet 15 mg PO DAILY PRN (Reason: pain) Qty: 90 3RF metoprolol tartrate 50 mg tablet 50 - 100 mg PO DAILY Qty: 270 3RF Rx Instructions: 1 tab (50mg) in the morning and 2 tabs (100mg) in the evening omeprazole 20 mg capsule,delayed release(DR/EC) 20 mg PO DAILY Qty: 90 3RF melatonin 10 mg Tablet 10 mg PO HS dibucaine 1 % ointment 1 applic MI QID PRNQty: 56 6RF psyllium Packet 1 packet PO BID PRN Discontinued acetaminophen 325 mg Tablet 650 mg PO Q6H PRNQty: 90 3RF Discharge Instructions Additional Instructions: Total Knee Discharge Instructions Activity: The most important activity is to walk and to work on gentle motion (both flexion and extension). You should try to take short walks a few times a day. It is important that when resting you work on keeping the knee straight. Avoid putting a pillow behind the knee as this will encourage flexion. Work on range of motion exercises as provided by Physical Therapy. - Start outpatient physical therapy within 2 weeks. - You should wear the LYN hose on both legs for 2 weeks. You may remove these at night. You may also use any compression sock in place of the LYN hose. - Utilize [employer] to review exercises, see videos on exercises and obtain basic information pertaining to your surgery and your recovery. Dressing: Remove the Brian wrap by 2 days after your surgery and put on the LYN stocking given to you from the hospital. Keep the surgical dressing (underneath the BRIAN wrap) in place for at least one week. After the first week it may be removed and replaced with light gauze and tape or nothing. The wound and dressing may get wet after 3 days but avoid soaking the dressing or otherwise it will need to be changed. Many people prefer covering the dressing with cling w rap (saran wrap) to minimize it from getting soaked. If it gets wet, just pat dry. If it starts to peel off then it will need to be changed. Medications: - You should take Tylenol and anti-inflammatory Meloxicam as your primary pain control medications. - You have been prescribed a stronger pain medication Oxycodone for breakthrough pain, take as needed as prescribed. - You take a stomach acid reduction agent Omeprazole at baseline - continue with this medication to help reduce stomach acid and reflux. - You have been prescribed Gabapentin to take at night for restlessness and nerve pain. - You will be taking Aspirin 81mg twice a day for DVT prevention unless instructed otherwise. - You have also been prescribed Decadron to take to control post-operative nausea and pain. You will start this tomorrow. - If you have constipation you should take Colace (which has been prescribed) or Miralax (which is available [id number]). It takes most people 3-4 days to have a bowel movement. Follow-up: 2 weeks If you have any acute concerns or questions, please do not hesitate to contact the office at [phone]. You may contact Dr. Talbot with any questions after hours through the hospital at [phone] or on his cell phone at [phone]. Referrals: Lucho Talbot MD [ [facility] STAFF PHYSICIAN] - Activity:: Activity as Tolerated Equipment/Supplies:: No Equipment Needed Diet:: As Tolerated Discharge Orders Discharge Orders: Discharge Order (Routine); Ordered 06/16/23 Ordered By: Lucho Talbot DS: Summary Time Spent with Patient providing and/or coordinating discharge services: Less than 30 minutes Status at Discharge Functional status at discharge: uses cane/walker Overall status at discharge: patient is progressing back to baseline Mental Status: mental status grossly normal Speech and Movement: speech and movement normal Mood: congruent mood Affect: normal affect Exam Narrative Exam Narrative: Laying supine in the bed. No acute distress. Alert and oriented x3. Evaluation of both knees shows no drainage. Dressings are intact. She is able to demonstrate straight leg raise of both. She shows range of motion from 0 to 95 degrees. Intact ankle dorsiflexion, plantarflexion, EHL, FHL of both feet. Gross sensation is intact to light touch about the deep and superficial peroneal nerve and tibial nerve bilaterally. Psych Mental Status: mental status grossly normal Speech and Movement: speech and movement normal Mood: congruent mood Affect: normal affect DS: Data Vitals/I&O Vitals and I&O: Vital Signs Temp Pulse Resp BP Pulse Ox 06/16/23 07:40 35.9 C L 76 16 95/58 L 97 06/16/23 03:20 36.1 C L 89 18 114/56 L 97 PFSH All Active Problems Essential hypertension (Chronic) Hyperlipidemia (Chronic) Primary osteoarthritis of left knee (Chronic) Corticosteroid Injection 12/07/22; 08/17/2022; 01/23/19, 11/16/19 Primary osteoarthritis of right knee (Chronic) Corticosteroid injection: 12/07/22; 08/17/2022 Chronic diarrhea (Chronic) GERD (gastroesophageal reflux disease) (Chronic) Depressive disorder (Chronic) Psoriasis (Chronic) Gout (Chronic) Obesity (Chronic) Osteopenia (Chronic) Dexa scan 03/2019 osteopenia of left hip Allergic rhinitis (Chronic) Essential tremor (Chronic) Medical History 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 Prediabetes Surgical History H/O hemorrhoidectomy (03/2023) thrombosed hemorrhoid History of carpal tunnel surgery of left wrist (10/31/03) History of carpal tunnel surgery of right wrist (12/29/02) History of total right hip arthroplasty (10/21/18) Hx of cataract surgery S/P cholecystectomy S/P total hysterectomy and bilateral salpingo-oophorectomy (03/09/23) Family History Mother , at 73 Essential hypertension Hyperlipidemia Dementia Brain cyst Led to dementia Father , at 87 Essential hypertension Dementia Sister Depression Hyperlipidemia Sister Essential hypertension Brother Essential hypertension Hyperlipidemia Brother Heart disease Hyperlipidemia Myocardial infarction Essential hypertension Maternal Grandfather , at 96 Stroke Hypertension Heart disease Maternal Grandmother , at 98 Dementia Paternal Grandfather , in his late 60s Heart disease Paternal Grandmother , at 60 No problems noted. Social History Smoking/Tobacco Use Status: Never Smoking risk assessment performed?: Yes Alcohol Intake: never Drug use: Never Substance use type: does not use Caregiver/Support person: No Household members: family Housing: house Communication Needs: None Do you need help understanding health information?: Rarely Pets and animals: Yes Pets and animals: cat(s) and dog(s) Sexually active: No Do you think of yourself as: straight/heterosexual Current gender identity: female How often do you talk on the phone with friends or family?: three or more times per week How often do you get together with friends or relatives?: decline to answer How often do you attend yarsanism or mosque services?: 1-3 times per year Do you belong to any clubs or organized social groups?: no Panel score (0-1 are the most socially isolated patients): 1 What type of physical activity do you participate in: other Details: Volunteers at local school for 1 hour daily and decline to answer Shauna/Restoration: None Special shauna needs: No Seatbelt use: always Drive intox or ride w/intox milk delivery driver: No Do you feel safe at home: Yes Do you feel safe in your relationship?: Yes Female Reproductive History Menstrual Age of Menarche: 12 Menopause type: natural History History 0 Para Hx # Term Pregnancies Multiple births Hx # Pregnancies Ectopic pregnancies AB induced Hx Number of Living Children AB spontaneous Time Spent with Patient Time Spent with Patient: <45 minutes Time was spent: preparing to see the patient(eg.review tests), obtaining and/or reviewing separately otained hiistory and counseling the patient
--- NOTE | 2023-06-16 15:49 | PTTR_ITS ---
Date of service: 06/16/23 Time of Service: 09:38 PT Notes Visit Reasons: Bilateral knee DJD Inpatient Physical Therapy Treatment Note [facility] Date: 06/16/23 PRECAUTIONS: Fall, standard, activity as tolerated. SUBJECTIVE: Patient eager to participate in therapy and go home. OBJECTIVE: Sitting up in recliner wearing street clothes and shoes rather than hospital gown. ? PAIN: Knees reported to be about a 5, shoulders reported to be worse and next on the list for potential surgery. VITALS: monitored by nursing staff ? Therapeutic Exercises (08514q3): Direct one-on-one instruction in therapeutic exercises to develop strength, endurance, range of motion and flexibility. ? Exercises: HEP established and reviewed with patient as follows: Access Code: [email or web address] URL: [email or web address] Date: 06/16/2023 Prepared by: Nanci aSmuels Exercises - Supine Heel Slide - 2 x daily - 7 x weekly - 3 sets - 10 reps - Seated Heel Slide - 2 x daily - 7 x weekly - 3 sets - 10 reps - Seated Quad Set - 2 x daily - 7 x weekly - 3 sets - 10 reps - Supine Gluteal Sets - 2 x daily - 7 x weekly - 3 sets - 10 reps - 10s hold - Supine Single Leg Ankle Pumps - 2 x daily - 7 x weekly - 3 sets - 10 reps - Small Range Straight Leg Raise - 2 x daily - 7 x weekly - 3 sets - 10 reps Patient demonstrates understanding and ability to perform all exercises independently. Requests that the program be emailed to her, which this therapist has done. ?Ambulation ? Assistive Device: FWW? Weight bearing: full Assist: Standby? Distance:? 300 feet ? Deviation: Initially patient demonstrates a marked antalgic gait pattern favoring the left leg. After 50-75 feet, stride length and stance phase become much more equal. Patient comments that she can correct her limp but that she has to think hard about it. Patient also remarks that while her knees do hurt, her shoulders hurt more and she is having difficulty balancing putting pressure through the walker so it's off her knees but not simultaneously making her shoulder pain worse. ? Provided skilled instruction in proper exercise performance ASSESSMENT:? Patient tolerates therapy well. PLAN: Instructed patient on HEP to tolerance, follow up with provider in 2 weeks. TREATMENT CODE/TIME: 48638 Ther Ex 23 minutes beginning at 9:38
--- NOTE | 2023-06-17 08:22 | INDS_ITS ---
Date of service: 06/16/23 PT Notes Visit Reasons: Bilateral knee DJD Physical Therapy Inpatient Discharge Summary Date: 06/16/2023 Dates of Service: 06/15/2023 through 06/16/2023 This is a clinical summary of care provided for the duration of dates listed above. No charge was made in the completion of this documentation. Referring Doctor: BARBIE Lester PT Orders: PT CONSULT: S/P Ortho surgery Precautions: Fall. Standard.? WBAT on BLE with AD. Patient Profile/Admitting Diagnosis:Hasmukh Niño is a 72-year-old female admitted with primary osteoarthritis of the left and right knee and is status post bilateral total knee arthroplasties on postoperative day 1. 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 Equipment Owned/DME: 4WW,? FWW,? raise toilet seat Subjective: NT. See most recent MICROMATIC HONE OPERATOR notes. Objective: General Observation: NT. See most recent MICROMATIC HONE OPERATOR notes. Mental Status: NT. See most recent MICROMATIC HONE OPERATOR notes. Pain: NT. See most recent MICROMATIC HONE OPERATOR notes. Vital Signs: NT. See most recent MICROMATIC HONE OPERATOR notes. ROM: Right Lower Extremity: Hip flexion WFL. Hip abduction WFL. Knee flexion about 0 to 95 degrees. Ankle dorsiflexion WFL. Ankle plantarflexion WFL. Left Lower Extremity: Hip flexion WFL. Hip abduction WFL. Knee flexion about 0 to 95 degrees. Ankle dorsiflexion WFL. Ankle plantarflexion WFL. Strength: Right Lower Extremity: Hip flexors 4/5. Hip abductors 4/5. Knee flexors 3-/5. Knee extensors 4-/5. Ankle dorsiflexors 4-/5. Ankle plantarflexors 4-/5. Left Lower Extremity: Hip flexors 4/5. Hip abductors 4/5. Knee flexors 3-/5. Knee extensors 4-/5. Ankle dorsiflexors 4-/5. Ankle plantarflexors 4-/5. Bed Mobility/Transfers: Supine to sit stand by assist Sit to stand stand by assist with FWW Stand to sit stand by assist with FWW Bed to reclining chair stand by assist with FWW Reclining chair to bed stand by assist with FWW Gait: Assistive Device: FWW? Weight bearing: WBAT B LE Assist: Standby?assist? Distance:? 300 feet? Balance: Static Sitting: Good Dynamic Sitting: Good Static Standing: Fair Dynamic Standing: Fair Special Tests: Mobility Limitations Standardized Measure [facility] 6 clicks Basic Mobility Inpatient Short Form: Raw Score: 23? CMS Score: 11% deficit? ? ? ASSESSMENT: Patient requires use of a front-wheeled walker to maximize independence and reduce fall risk. ? Patient was provided with written copy of HEP and demonstrated good mastery of said exercises. She will follow up with orthopedic surgeon and continue PT in two weeks. Patient presents with clinical signs and symptoms consistent with current/admitting diagnoses that have resulted to mobility limitations, gait instability, generalized weakness, and overall ADL decline as demonstrated by the following impairment level findings: 1.? Decreased strength to? B knee major muscle groups 2.? Impaired sitting/standing balance 3.? Impaired activity tolerance 4.? Limitation of joint range of motion in B knee flexion Impairments are contributing to the following functional limitations: 1.? Decline in bed mobility skills 2.? Decline in transfer skills 3.? Difficulty with ambulation without assistive device and physical assistance 4.? Increased completion time for mobility ADL performance 5.? Increased risk for falls 6.? Difficulty with managing steps alone safely Goals: Goals X1 week 1. Supine-Sit independent NOT MET 2. Sit-Supine independent NOT MET 3. Sit-Stand independent NOT MET 4. Stand-Sit independent with FWW NOT MET 5. Bed-Chair independent with FWW NOT MET 6. Chair-Bed independent with FWW NOT MET 7. Independent gait on level surface with use of FWW for at least 300 feet without report of pain nor dyspnea NOT MET 8. Independent with home exercise program NOT MET 10. Good static and dynamic standing balance/tolerance NOT MET DISCHARGE RECOMMENDATIONS: [] ? Home with no services [] [] ? Home with services [specify] [X] ? Home with outpatient PT. home when medically cleared by orthopedic surgeon.? Recommend outpatient PT services in order to optimize functional mobility outcomes and facilitate return to independent community ambulation without an assistive device. [] ? SNF for continued rehabilitation [] [] ? [facility] [] [] ? SNF versus LTC based on ability to participate and progress [] TREATMENT CODE/TIME: IN Thank you for the opportunity to participate in the care of this patient. Saniya Back PT, DPT, CLT [facility] [place], [place]
== END 2023-06-16 10:25 | disposition home or self-care (01) ==
LOC: MS 06-16 09:26 → SUR 06-16 09:28 → MS 06-16 09:28
PROVIDERS: Admitting Provider Student in an Organized Health Care Education/Training Program; PCP Nurse Practitioner Family; Visit Provider Student in an Organized Health Care Education/Training Program
PROC: 0SRC0JZ Replacement of Right Knee Joint with Synthetic Substitute, Open Approach (ICD-10-PCS; CPT 27447; principal; 2023-06-15 11:45)
DX: M17.0 Bilateral primary osteoarthritis of knee (principal); R73.03 Prediabetes; Z96.641 Presence of right artificial hip joint; Z79.899 Other long term (current) drug therapy; I10 Essential (primary) hypertension; E78.5 Hyperlipidemia, unspecified; K52.9 Noninfective gastroenteritis and colitis, unspecified; K21.9 Gastro-esophageal reflux disease without esophagitis; F32.A Depression, unspecified; L40.9 Psoriasis, unspecified; M10.9 Gout, unspecified; J30.9 Allergic rhinitis, unspecified; G25.0 Essential tremor; E66.9 Obesity, unspecified; Z68.39 Body mass index [BMI] 39.0-39.9, adult; M85.80 Other specified disorders of bone density and structure, unspecified site
CPT/HCPCS: 27447; 20985; C1776; 97110; 97162; 97530; G0378; J0690; J1100; J2250; J2371; J2405; J3010; J8540

== ENCOUNTER 2023-07-01 13:57 | Outpatient (CLI) | payer MEDICARE, SELFPAY ==
--- NOTE | 2023-07-01 12:04 | DI.RAD_ITS ---
Exam(s) XR KNEE LT 1V XR STANDING ALIGNMENT XR KNEE RT 1V EXAM: XR STANDING ALIGNMENT and XR knee bilateral 1 V CLINICAL HISTORY: S/P BILAT TKAs. TECHNIQUE: 2D digital imaging was performed. Six images were obtained. COMPARISON: CR XR STANDING ALIGNMENT from 06/04/2023 CR XR KNEE LT 1V from 06/04/2023 CR XR KNEE RT 1V from 06/04/2023 FINDINGS: BONES: The patient has a right total hip replacement. The left hip is well maintained. There are no w bilateral total knee replacements. The orthopedic hardware appears in good position. There is no evidence of hardware failure. The ankles are well maintained.There is no significant leg length disc repancy. SOFT TISSUE: Normal. IMPRESSION: Interval placement of bilateral total knee replacements. DATA REPOSITORY: RADIATION DOSE DELIVERED:
== END 2023-07-01 13:58 | disposition home or self-care (01) ==
LOC: DIORS 13:57
PROVIDERS: PCP Nurse Practitioner Family; Referring Provider Nurse Practitioner Family; Visit Provider Student in an Organized Health Care Education/Training Program
DX: Z47.1 Aftercare following joint replacement surgery; Z96.653 Presence of artificial knee joint, bilateral
CPT/HCPCS: 73560; 77073

== ENCOUNTER → 2023-07-29 10:06 | Outpatient (BNVA) | payer MEDICARE, SELFPAY | PROVIDERS: PCP Nurse Practitioner Family; Referring Provider Nurse Practitioner Family; Visit Provider Student in an Organized Health Care Education/Training Program | DX: Z47.1 Aftercare following joint replacement surgery (principal); Z96.653 Presence of artificial knee joint, bilateral ==

== ENCOUNTER → 2023-09-09 10:39 | Outpatient (BNVA) | payer MEDICARE, SELFPAY | PROVIDERS: PCP Nurse Practitioner Family; Visit Provider Student in an Organized Health Care Education/Training Program | DX: Z47.1 Aftercare following joint replacement surgery (principal); Z96.653 Presence of artificial knee joint, bilateral ==

== ENCOUNTER → 2023-10-01 00:22 | Outpatient (CLI) | payer MEDICARE, SELFPAY ==
--- NOTE | 2023-10-01 08:00 | DI.MAMMO_ITS ---
Exam(s) MAMMO SCREENING EXAM: MAMMO SCREENING CLINICAL HISTORY: screening,z12.39. TECHNIQUE: Bilateral full field digital CC and MLO mammographic images were obtained with 3D tomosyn thesis and utilizing computer aided detection (CAD). COMPARISON: Prior mammograms were reviewed. FINDINGS: There has been no significant change in the appearance and distribution of the fibroglandular tissue. There are no CAD designations. There are no new spiculated masses nor malignant appearing microcalcification groups. There is no significant architectural distortion nor skin thickening-retraction. IMPRESSION: No radiographic evidence of malignancy. BI-RADS Category 1 - Negative Breast Density - Category A - Almost entirely fatty Breast density Category C or D implies that the patient has dense breast tissue. Dense breast tissue can make it harder to find cancer on a mammogram. Dense breast tissue is also associated with an incr eased risk of breast cancer. This information about the result of the mammogram report was provided to the patient to raise their awareness. Use this report when you speak with the patient about their risks for breast cancer, which includes their family history. At that time, you may recommend additional screening tests (Ultrasoun d or MRI) as these tests may add significant information. A negative radiographic report should not delay biopsy if a dominant or clinically suspicious mass is present. Up to ten percent of cancers are not identified on mammography. A negative report may reinforce clinical impression. Adenosis and dense breasts may obscure an underlying neoplasm. False positive reports average 6 to 10%. Patient will receive a letter notifying them of these results.
--- NOTE | 2023-10-01 08:00 | DI.DEXA_ITS ---
Exam(s) XR DEXA BONE DENSITY W/WO DENNYS EXAM: XR DEXA BONE DENSITY W/WO DENNYS CLINICAL HISTORY: osteopenia,screening for osteoporosis,z78.0 TECHNIQUE: Routine DEXA evaluation of the lumbar spine, hip, or forearm. COMPARISON: Prior DEXA scan of March 2019 reviewed FINDINGS: Performed on a [facility] unit. Lateral image: No compression fracture evident. Lumbar Spine total T-score: 2.2. Prior reading was 0.8 in 2019. Hip total T-score:-2.9. Prior reading was -2.1. Independent reading at the level of the femoral neck yields T-score of -3.2. Forearm total T-score: -3.3 IMPRESSION: Bone mineral density measures in the osteoporosis range. Fracture risk is high. Note: Any spine fracture indicates 5x risk for subsequent spine fracture and 2x risk for subsequent h ip fracture. World Health Organization criteria for BMD interpretation classify patients: Normal...... T- Score at or above -1.0 Osteopenic... T- Score between -1.0 and -2.5 Osteoporosis... T-Score at or below -2.5
== END ==
PROVIDERS: PCP Nurse Practitioner Family; Visit Provider Nurse Practitioner Family
DX: Z12.31 Encounter for screening mammogram for malignant neoplasm of breast (principal); Z78.0 Asymptomatic menopausal state
CPT/HCPCS: 77063; 77067; 77080

== ENCOUNTER → 2023-12-15 07:28 | Outpatient (BNVA) | payer MEDICARE, SELFPAY | PROVIDERS: PCP Nurse Practitioner Family; Referring Provider Nurse Practitioner Family; Visit Provider Surgery | DX: K62.5 Hemorrhage of anus and rectum (principal) | CPT/HCPCS: 46600; 99213 ==

== ENCOUNTER → 2024-01-12 12:44 | Outpatient (BNVA) | payer MEDICARE, SELFPAY | PROVIDERS: PCP Nurse Practitioner Family; Visit Provider Surgery | DX: K64.8 Other hemorrhoids (principal) | CPT/HCPCS: 99213 ==

== ENCOUNTER 2024-03-17 06:48 | Day surgery (SDC) | payer MEDICARE, SELFPAY ==
--- NOTE | 2024-03-16 20:45 | W.PREOPHP ---
Assessment and Plan Assessment and plan (1) Encounter for screening colonoscopy: Status: Acute Assessment and plan: Mary Beth and Susan reviewed the plan for colonoscopy today. She had the opportunity to ask any questions. We reviewed the risks and benefits of the procedure, as well as what to expect in terms of the recovery. She was able to provide informed consent, and we can proceed as planned. History of Present Illness History of Present Illness Chief Complaint: screening colonoscopy Narrative: Mary Beth is 73 years old and she needs her first screening colonoscopy for routine health maintenance. 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 Prediabetes Surgical History History of total right knee replacement (06/15/23) as part of a bilateral TKA History of total left knee replacement (06/15/23) as part of a bilateral TKA Status post total bilateral knee replacement (06/15/23) H/O hemorrhoidectomy (03/2023) thrombosed hemorrhoid S/P total hysterectomy and bilateral salpingo-oophorectomy (03/09/23) Hx of cataract surgery S/P cholecystectomy History of carpal tunnel surgery of right wrist (12/29/02) History of carpal tunnel surgery of left wrist (10/31/03) History of total right hip arthroplasty (10/21/18) Family History Mother , at 73 Essential hypertension Hyperlipidemia Dementia Brain cyst Led to dementia Father , at 87 Essential hypertension Dementia Sister Depression Hyperlipidemia Sister Essential hypertension Brother Essential hypertension Hyperlipidemia Brother Heart disease Hyperlipidemia Myocardial infarction Essential hypertension Maternal Grandfather , at 96 Stroke Hypertension Heart disease Maternal Grandmother , at 98 Dementia Paternal Grandfather , in his late 60s Heart disease Paternal Grandmother , at 60 No problems noted. Social History Smoking/Tobacco Use Status: Never Smoking risk assessment performed?: Yes Alcohol Intake: never Drug use: Never Substance use type: does not use Caregiver/Support person: No Household members: family Housing: house Communication Needs: None Do you need help understanding health information?: Rarely Pets and animals: Yes Pets and animals: cat(s) and dog(s) Sexually active: No Do you think of yourself as: straight/heterosexual Current gender identity: female How often do you talk on the phone with friends or family?: three or more times per week How often do you get together with friends or relatives?: decline to answer How often do you attend adventism or nondenominational services?: 1-3 times per year Do you belong to any clubs or organized social groups?: no Panel score (0-1 are the most socially isolated patients): 1 What type of physical activity do you participate in: other Details: Volunteers at local school for 1 hour daily and decline to answer Shauna/Church: None Special shauna needs: No Seatbelt use: always Drive 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 Do you feel safe at home: Yes Do you feel safe in your relationship?: Yes Female Reproductive History Menstrual Age of Menarche: 12 Menopause type: natural History History 0 Para Hx # Term Pregnancies Multiple births Hx # Pregnancies Ectopic pregnancies AB induced Hx Number of Living Children AB spontaneous Meds Allergies and Home Medications Allergies Allergy/AdvReac Type Severity Reaction Status Date / Time Penicillins Allergy Intermediate Rash Verified 03/17/24 07:12 Sulfa (Sulfonamide Allergy Intermediate Skin Rash Verified 03/17/24 07:12 Antibiotics) tetracycline Allergy Intermediate Skin Rash Verified 03/17/24 07:12 nickel Allergy Mild Other (See Verified 03/17/24 07:12 Comment) TDAP AdvReac Intermediate rash at Uncoded 03/17/24 07:12 injection site Home Medications Medication Instructions Recorded Confirmed Type calcium carbonate 1,200 mg PO DAILY 01/12/17 03/17/24 History multivitamin (One Daily 1 ea PO DAILY 01/12/17 03/17/24 History Multivitamin tablet) allopurinol 100 mg tablet 100 mg PO DAILY #90 tab-caps 03/26/23 03/17/24 Rx atorvastatin 40 mg tablet 40 mg PO QHS #90 tabs 03/26/23 03/17/24 Rx lisinopril 10 mg tablet 10 mg PO DAILY #90 tab-caps 03/26/23 03/17/24 Rx meloxicam 15 mg tablet 15 mg PO DAILY PRN pain #90 tabs 03/26/23 03/17/24 Rx metoprolol tartrate 50 mg tablet 50 - 100 mg (1 - 2 x 50 mg) PO 03/26/23 03/17/24 Rx DAILY #270 tabs omeprazole 20 mg capsule,delayed 20 mg PO DAILY #90 tab-caps 03/26/23 03/17/24 Rx release melatonin 10 mg tablet 10 mg PO HS 04/12/23 03/17/24 History psyllium 1 packet PO BID PRN 06/11/23 03/17/24 History fluoxetine 10 mg capsule 10 mg PO DAILY #90 tab-caps 08/02/23 03/17/24 Rx cholecalciferol (vitamin D3) 25 25 mcg PO DAILY 08/03/23 03/17/24 History mcg (1,000 unit) capsule clobetasol 0.05 % topical ointment 1 applic topical DAILY PRN 11/16/23 03/17/24 Rx psoriasis #60 grams acetaminophen 325 mg capsule 650 mg PO ONCE PRN 12/15/23 03/17/24 History dibucaine 1 % rectal ointment 1 applic [place] QID PRN hemorrhoids 02/20/24 03/17/24 Rx #56 grams hydrocortisone acetate 25 mg 25 mg [place] DAILY #12 ea 03/06/24 03/17/24 Rx rectal suppository (Anusol-HC) Exam Const General: cooperative, healthy appearing and not in acute distress Neck Neck: normal visual inspection, no lymphadenopathy and supple Resp Effort & Inspection: normal respiratory effort Auscultation: clear to auscultation bilaterally Cardio Jugular venous pressure: no JVD Rate: regular rate Rhythm: regular rhythm Heart Sounds: S1 normal and S2 normal GI Inspection: normal to inspection Palpation: soft, no guarding, no hernias and nontender Percussion: normal to percussion Auscultation: normal bowel sounds Neuro General: patient alert, patient awake and patient oriented x3 Psych Appearance: grossly normal
--- NOTE | 2024-03-16 20:46 | W.PM.DSUDISC ---
Date of service: 03/17/24 Time of Service: 08:54 Discharge Plan Disposition Patient Disposition: Home Condition: Good Discharge Details Reason For Visit: screening colonoscopy Attending Provider: Chris Claudio Primary Care Provider: Diana Yao Home Meds and New Rx's Prescriptions: Continued acetaminophen 325 mg capsule 650 mg PO ONCE PRN multivitamin [One Daily Multivitamin] 1 EACH tablet 1 ea PO DAILY calcium carbonate 500 MG tablet,chewable 1,200 mg PO DAILY lisinopril 10 mg tablet 10 mg PO DAILY Qty: 90 3RF allopurinol 100 mg tablet 100 mg PO DAILY Qty: 90 3RF atorvastatin 40 mg tablet 40 mg PO QHS Qty: 90 3RF meloxicam 15 mg tablet 15 mg PO DAILY PRN (Reason: pain) Qty: 90 3RF metoprolol tartrate 50 mg tablet 50 - 100 mg PO DAILY Qty: 270 3RF Rx Instructions: 1 tab (50mg) in the morning and 2 tabs (100mg) in the evening omeprazole 20 mg capsule,delayed release(DR/EC) 20 mg PO DAILY Qty: 90 3RF fluoxetine 10 mg capsule 10 mg PO DAILY Qty: 90 3RF cholecalciferol (vitamin D3) 25 mcg (1,000 unit) capsule 25 mcg PO DAILY clobetasol 0.05 % ointment 1 applic TP DAILY PRN (Reason: psoriasis) Qty: 60 2RF Rx Instructions: Apply to bilateral elbows and other affected areas once a day as needed for psoriasis dibucaine 1 % ointment 1 applic NE QID PRN (Reason: hemorrhoids) Qty: 56 6RF hydrocortisone acetate [Anusol-HC] 25 mg suppository 25 mg NE DAILY Qty: 12 0RF Rx Instructions: Use 1 suppository in the morning or evening at your convenience every day for 72 hours. melatonin 10 mg Tablet 10 mg PO HS psyllium Packet 1 packet PO BID PRN Discontinued bisacodyl 5 mg tablet,delayed release (DR/EC) 5 mg PO ONCE Qty: 4 0RF Rx Instructions: Per Colonoscopy bowel prep instructions polyethylene glycol 3350 17 gram/dose powder 238 g PO ONCE Qty: 238 0RF Rx Instructions: For Colonoscopy bowel prep, as directed by office Discharge Instructions Instructions: Hemorrhoids (DC), Diverticulosis (GEN), Colorectal Polyps (GEN), Diverticulosis Diet (GEN) Additional Instructions: Mary Beth, we were able to complete your colonoscopy today without any difficulty. Your prep was excellent, and I could see everything just fine. I did find and remove for polyps today. None of them look particularly worrisome to the naked eye. All of these will be sent off for testing, as the nature of the polyps can impact the timing of subsequent colonoscopies. He also have diverticulosis like we talked about, and internal hemorrhoids. Based on all of this information, I suspect the internal hemorrhoids are the most likely culprit from the bleeding that you experience from time to time. Like we talked about beforehand, I would encourage you to maximize [id number] treatment for hemorrhoids, and dietary strategies like the increased fiber intake. As this will help with the diverticulosis as well. If your hemorrhoids continue to bother you, there are always procedures that can be done to help reduce the likelihood of symptoms. However, if you are able to manage on a daily basis with simple interventions, I think that is probably the safest bet. Once I have the nature of the polyps based on the pathology report, I will be in touch with any other recommendations. If you have any other questions, please do not hesitate to call or ask at any point. 1. If tolerated, consume a soft, low fiber diet for 1-2 days. 2. Do not drive, drink alcohol, operate machinery, make critical decisions, or do activities that require coordination or balance for 24 hours. 3. Because air was put into your colon during the procedure, expelling air from your rectum (passing gas or farting) is normal. 4. You may not have a bowel movement for 1-3 days because of the colonoscopy prep. This is normal. 5. Go directly to the emergency room if you notice any of the following: Develop chills (warm to touch), or if you have a thermometer and your temperature is above 101 Difficulty breathing or difficultly swallowing Persistent vomiting Severe abdominal pain, other than gas cramps Severe chest pain Black, tarry stools Any bleeding ? exceeding one tablespoon 6. Call your physician if the site where your intravenous was started becomes red, swollen, painful, and warm to touch. 7. Your physician has reviewed your pre-procedure medications. Please continue to take those medications as previously ordered. You will be given specific information/education regarding any changes to your medications before leaving. Activity:: Activity as Tolerated Diet:: As Tolerated Discharge Orders Discharge Orders: Discharge Order (Routine); Ordered 03/16/24 Ordered By: Chris Claudio DS: Diagnosis Discharge Diagnosis (1) Encounter for screening colonoscopy: Status: Acute Asessment and Plan: Follow-up on polypectomy results
--- NOTE | 2024-03-16 20:55 | W.COLOREPORT ---
Date of service: 03/17/24 Time of Service: 08:56 Colonoscopy Report Date of procedure: 03/17/24 Pre-op diagnosis general: screening colonoscopy Post-op diagnosis procedure note: other (Grade 3 internal hemorrhoids, colon polyps, sigmoid diverticulosis) Procedure: colonoscopy Surgeon: Chris Claudio Anesthesia Type: General:No Airway Estimated blood loss (mL): 10 Pathology: other (0.25 cm cecal polyp, 0.25 cm polyp at 95 cm, 0.5 cm polyp at 70 cm, 0.25 cm polyp at 50 cm) Complications: None Disposition: same day Indications: Mary Beth is a 73 year old woman with a history of intermittent hematochezia who needs her first screening colonoscopy Prep: Miralax/Dulcolax Procedure Start Time: 08:26 Procedure End Time: 08:48 Retraction Time: 13 Findings: Grade 3 internal hemorrhoids, sigmoid diverticulosis, 0.25 cm cecal polyp, 0.25 cm polyp at 95 cm, 0.5 cm polyp at 70 cm, 0.25 cm polyp at 50 cm Procedure Description: After the induction of monitored anesthetic care, and with the patient in left lateral decubitus position, I began by performing an external anorectal exam.? Perineum and skin were normal, as was the anal verge.? There is a prolapsed internal hemorrhoid that is reducible.? Next, I performed a digital rectal exam.? Aside from the hemorrhoid this is normal.? Next, I advanced a colonoscope into the rectal vault.? I performed retroflexion.? Again seen is an erythematous internal hemorrhoid, otherwise the retroflexion is normal.? Using insufflation, I then advanced the colonoscope beyond the rectal folds and into the sigmoid colon before advancing towards the cecum.? There is sigmoid diverticulosis. There is no stigmata of recent bleeding..? The scope was noted to be in the cecum by identification of the ileocecal valve and appendiceal orifice.? Just adjacent to the appendiceal orifice is a 0.25 cm flat polyp. This was removed with cold forceps. I then began withdrawing the colonoscope using repeated irrigation as necessary for full evaluation of the colonic mucosa. Narrowband imaging is used to assist with analysis. Around 95 cm from the anal verge I identified a 0.25 cm polyp. ?It appeared flat in character. ?I was able to remove this with a cold forcep polypectomy. ?I examined the site, and there was minimal bleeding. I found another polyp at 70 cm this was a little larger around 0.5 cm in size. This was mostly flat, and removed in piecemeal with cold forceps. ?Once this was completed, I continued to withdraw the scope and examine the remainder of the colonic mucosa. I found another 0.25 cm flat polyp at 50 cm. This was also removed with cold forceps without any difficulty. ?Once the scope was withdrawn to the level of the rectum, great care was taken to examine portions of the rectal folds.? Finally, the scope was withdrawn and the patient was brought to the same-day surgery recovery unit as the anesthetic wore off. ?The findings and instructions were shared with the patient prior to discharge. [facility] Bowel Prep [facility] Bowel Prep Right Colon: 3 Left Colon: 3 Transverse Colon: 3 Total Score: 9
[2024-03-17 07:16] VITALS: BP 120/79; PULSE 68; RESP 16; TEMP 36.5; O2SAT 98
[2024-03-17] MEDS: Lactated Ringers 1,000 ML 80 ML IV (07:23)
[2024-03-17 08:10] VITALS: BMI 34.9
--- NOTE | 2024-03-17 08:10 | W.ANESPRE ---
General Info Date of Service Date Performed: 03/17/24 Height: 5 ft Weight: 81 kg Body Mass Index (BMI): 34.9 Surgical Procedure: Operation Date: 03/17/24 08:20 Proposed Procedure Side Surgeon fifi Claudio MD Meds Allergies and Home Medications Allergies Allergy/AdvReac Type Severity Reaction Status Date / Time Penicillins Allergy Intermediate Rash Verified 03/17/24 07:12 Sulfa (Sulfonamide Allergy Intermediate Skin Rash Verified 03/17/24 07:12 Antibiotics) tetracycline Allergy Intermediate Skin Rash Verified 03/17/24 07:12 nickel Allergy Mild Other (See Verified 03/17/24 07:12 Comment) TDAP AdvReac Intermediate rash at Uncoded 03/17/24 07:12 injection site Home Medication Medication Instructions Recorded calcium carbonate 1,200 mg PO DAILY 01/12/17 multivitamin (One Daily 1 ea PO DAILY 01/12/17 Multivitamin tablet) allopurinol 100 mg tablet 100 mg PO DAILY #90 tab-caps 03/26/23 atorvastatin 40 mg tablet 40 mg PO QHS #90 tabs 03/26/23 lisinopril 10 mg tablet 10 mg PO DAILY #90 tab-caps 03/26/23 meloxicam 15 mg tablet 15 mg PO DAILY PRN pain #90 tabs 03/26/23 metoprolol tartrate 50 mg tablet 50 - 100 mg (1 - 2 x 50 mg) PO 03/26/23 DAILY #270 tabs omeprazole 20 mg capsule,delayed 20 mg PO DAILY #90 tab-caps 03/26/23 release melatonin 10 mg tablet 10 mg PO HS 04/12/23 psyllium 1 packet PO BID PRN 06/11/23 fluoxetine 10 mg capsule 10 mg PO DAILY #90 tab-caps 08/02/23 cholecalciferol (vitamin D3) 25 25 mcg PO DAILY 08/03/23 mcg (1,000 unit) capsule clobetasol 0.05 % topical ointment 1 applic topical DAILY PRN 11/16/23 psoriasis #60 grams acetaminophen 325 mg capsule 650 mg PO ONCE PRN 12/15/23 dibucaine 1 % rectal ointment 1 applic [place] QID PRN hemorrhoids 02/20/24 #56 grams hydrocortisone acetate 25 mg 25 mg [place] DAILY #12 ea 03/06/24 rectal suppository (Anusol-HC) Current Visit Medications: Current Medications Generic Name Dose Route Start Last Admin Trade Name Freq PRN Reason Stop Dose Admin Hyoscyamine Sulfate 0.125 mg 03/16/24 20:56 Hyoscyamine 0.125 Mg Sl/Oral/Chew SL 04/15/24 20:55 DIRECTED PRN Ringer's Solution 1,000 mls @ 80 mls/hr 03/17/24 06:00 03/17/24 07:23 IV 03/17/24 23:59 80 mls/hr INFUSION SHAHID Administration IV Miscellaneous Supplies 1 each 03/17/24 06:00 Iv Access IV 03/17/24 23:59 DIRECTED SHAHID Ondansetron HCl 4 mg 03/16/24 20:56 Ondansetron 4 Mg/2 Ml Vial IVP 04/15/24 20:55 Q4H PRN PRN Nausea / Vomiting Sodium Chloride 0 ml 03/17/24 06:00 Normal Saline Flush 10 Ml Syr IV 03/17/24 23:59 PRN PRN Sodium Chloride 0 ml 03/17/24 06:00 Normal Saline 10 Ml Vial IJ 03/17/24 23:59 DIRECTED PRN Sterile Water 0 ml 03/17/24 06:00 Water,Injection,Sterile 10 Ml Vial IJ 03/17/24 23:59 DIRECTED PRN PFSH Active Problems Active Problems: Problem Status Onset Code Encounter for screening colonoscopy Z12.11 Internal hemorrhoids K64.8 Essential hypertension I10 Hyperlipidemia E78.5 Chronic diarrhea K52.9 GERD (gastroesophageal reflux disease) K21.9 Depressive disorder F32.9 Psoriasis L40.9 Gout M10.9 Obesity E66.9 Osteopenia M85.80 Allergic rhinitis J30.9 Essential tremor G25.0 Medical History Medical History 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 Prediabetes Surgical History Surgical History History of total right knee replacement (06/15/23) as part of a bilateral TKA History of total left knee replacement (06/15/23) as part of a bilateral TKA Status post total bilateral knee replacement (06/15/23) H/O hemorrhoidectomy (03/2023) thrombosed hemorrhoid S/P total hysterectomy and bilateral salpingo-oophorectomy (03/09/23) Hx of cataract surgery S/P cholecystectomy History of carpal tunnel surgery of right wrist (12/29/02) History of carpal tunnel surgery of left wrist (10/31/03) History of total right hip arthroplasty (10/21/18) Tobacco Smoking/Tobacco Use Status: Never Passive smoking exposure: No Alcohol Alcohol Intake: never Substance Use Substance use: Never Substance use type: does not use Prental History History 0 Para Hx # Term Pregnancies Multiple births Hx # Pregnancies Ectopic pregnancies AB induced Hx Number of Living Children AB spontaneous Vital Signs and Lab Results Vital Signs Most Recent Vital Signs in EMR: Most Recent Vital Signs Temp Pulse Resp BP Pulse Ox 36.5 C 68 16 120/79 98 03/17/24 07:16 03/17/24 07:16 03/17/24 07:16 03/17/24 07:16 03/17/24 07:16 Lab Results Blood Type / Crossmatch: No Data to Display Complete Blood Count: No Data to Display Complete Metabolic Panel: No Data to Display Liver Function Panel: No Data to Display Coagulation Panel: No Data to Display Cardiac Panel: No Data to Display Arterial Blood Gas: No Data to Display Venous Blood Gas: No Data to Display Pancreas Panel: No Data to Display Thyroid Panel: No Data to Display Infectious Disease: No Data to Display Blood Cultures: No Data to Display Toxicology Panel: No Data to Display Anesthesia Assessment and Plan Anesthesia History Personal History: No History of Anesthesia Complications Family History: No Family History of Anesthesia Complications Exercise Tolerance Exercise Tolerance: Metabolic Equivalents>4 Pertinent Negatives Pertinent Negatives: No Symptoms of GERD Cardiac & Pulmonary Exam Cardiac Exam: Normal S1/S2 Heart Sounds Pulmonary Exam: Clear Bilateral Breath Sounds Implantable Cardiac Device Does patient have a Pacemaker or an ICD?: No Airway Exam Known Difficult Airway: No Mallampati Class: 3 Mouth Opening: Normal (> 3cm) Thyromental Distance: Less than 3 cm Neck Range of Motion: Full ROM Neck Circumference: Normal Teeth Condition: Generalized Poor Dentition, Removable Dentures/Plates Upper and Removable Dentures/Plates Lower Airway Comments: only 4 bottom teeth ASA Classification ASA Score: ASA 2 Emergency Case?: No NPO Status NPO Status: NPO Clears >2 hours, Solids >8 hours Anesthesia Plan Resuscitation Status: Full Code Anesthesia Technique: General Anesthesia Airway Planned: Natural Airway Monitors Used: Standard Monitors
--- NOTE | 2024-03-17 08:25 | BOWEL_PTH ---
PATIENT: Mary Beth Chand LOC: [facility] U#:[id number] AGE/SX: 73/F ROOM: RE03/17/[address]: Chris Claudio MD : 1950 BED: DIS: 03/17/2024 SPEC #: [id number] RECD: 03/17/24 13:02 STATUS: AGUSTIN [facility] #: [id number] CHET: 03/17/24 08:[address]: Chris Claudio DEPT: Surgical Specimen RECD BY: Shahnaz Scherer ENTERED: 03/17/24 13:05 SP TYPE: Bowel OTHR DR: Diana Yao, MICHAEL Tissues: 1 - BIOPSY BOWEL 2 - BIOPSY BOWEL 3 - BIOPSY BOWEL 4 - BIOPSY BOWEL Procedures: GROSS AND MICRO LEVEL 4 Comments: [id number]
[2024-03-17 08:51] VITALS: BP 111/72; PULSE 75; RESP 14; TEMP 36.5; O2SAT 96
--- NOTE | 2024-03-17 09:05 | W.ANESPOSTOP ---
Postoperative Evaluation Date, Time and Location Date Performed: 03/17/24 Time Performed: 09:05 Patient Location: Day Surgery Unit Vital Signs Most Recent Imported Vital Signs: Most Recent Vital Signs Temp Pulse Resp BP Pulse Ox 36.5 C 75 14 111/72 96 03/17/24 08:51 03/17/24 08:51 03/17/24 08:51 03/17/24 08:51 03/17/24 08:51 Pain Score Most Recent Pain Score: Most Recent Pain Score Pain Level 0 03/17/24 07:16 Assessment Mental Status: Awake (Alert & Oriented to Patient Baseline) Airway and Respiratory Function: Patent airway with normal (patient baseline) respiratory exam Cardiovascular Function: Hemodynamically Stable Hydration Status: Adequately Hydrated Nausea & Vomiting: No Nausea or Vomiting Pain: Pt. Denies Any Pain Peripheral Nerve Block: Patient did not receive a nerve block
[2024-03-17 09:11] VITALS: BP 112/70; PULSE 68; RESP 16; TEMP 36.4; O2SAT 98
== END 2024-03-17 09:27 | disposition home or self-care (01) ==
LOC: SUR 06:49
PROVIDERS: PCP Nurse Practitioner Family; Visit Provider Surgery
PROC: 0DJD8ZZ Inspection of Lower Intestinal Tract, Via Natural or Artificial Opening Endoscopic (ICD-10-PCS; CPT 45378; principal; 2024-03-17 08:15)
DX: Z12.11 Encounter for screening for malignant neoplasm of colon (principal); I10 Essential (primary) hypertension; K57.30 Diverticulosis of large intestine without perforation or abscess without bleeding; K64.2 Third degree hemorrhoids; D12.5 Benign neoplasm of sigmoid colon; D12.4 Benign neoplasm of descending colon; D12.3 Benign neoplasm of transverse colon
CPT/HCPCS: 45380; 88305; J2001; J2704

== ENCOUNTER 2024-05-30 02:31 | Outpatient (CLI) | payer MEDICARE, SELFPAY ==
[2024-05-30 11:37] LABS: ALT 25 U/L (14-59); AST 17 U/L (15-37); Albumin 3.8 g/dL (3.4-5.0); Alkaline Phosphatase 70 U/L (46-116); Anion Gap 9.6 mmol/L (3-11); BUN 10 mg/dL (7-18); Bilirubin, Total 0.51 mg/dL (0.2-1.0); CO2 26.4 mmol/L (21.0-32.0); CREATININE 0.7 mg/dL (0.55-1.02); Calcium 9.1 mg/dL (8.5-10.1); Calculated LDL 56 mg/dL (<100); Chloride 105 mmol/L (98-107); Cholesterol 182 mg/dL (<200); Estimated GFR 92.41 (mL/min/1.73m2); Glucose 108 mg/dL (74-106); HDL Cholesterol 61 mg/dL (40-60); Potassium 4.4 mmol/L (3.5-5.1); Sodium 141 mmol/L (136-145); TSH (W/Ref FT4) 1.82 uIU/mL (0.36-3.74); Total Protein 6.9 g/dL (6.4-8.2); Triglyceride 325 mg/dL (<150)
[2024-05-30 18:48] LABS: HIV-1/2 Ag & Ab Screen Negative (Negative); Hepatitis C Ab w Rflx HCV PCR Negative (Negative)
[2024-05-30 18:52] LABS: HBs Antibody, Quant <3.1 mIU/mL (See Note); Hep B Surface Ab Negative (See Note); Hepatitis B Core Antibody Negative (Negative); Hepatitis B Surface Antigen Negative (Negative)
[2024-06-02 11:22] LABS: Uric Acid 5.4 mg/dL (2.2-7.7)
== END 2024-05-30 02:32 | disposition home or self-care (01) ==
PROVIDERS: PCP Nurse Practitioner Family; Visit Provider Nurse Practitioner Family
DX: Z11.59 Encounter for screening for other viral diseases (principal); Z00.00 Encounter for general adult medical examination without abnormal findings; I10 Essential (primary) hypertension; M81.0 Age-related osteoporosis without current pathological fracture; Z11.4 Encounter for screening for human immunodeficiency virus [HIV]; M10.9 Gout, unspecified
CPT/HCPCS: 36415; 80053; 80061; 82306; 86704; 86706; 86803; 87340; 87389; 84443; 84550

== ENCOUNTER 2024-06-08 04:00 | Outpatient (RCR) | payer MEDICARE, SELFPAY ==
[2024-06-08] MEDS: ZOLEDRONIC ACID/MANNITOL/WATER 5 MG/100 ML BTL 300 MG IVPB (11:46)
[2024-06-08] MEDS: Normal Saline Flush 10 ML SYR IVP (11:46)
== END 2024-06-24 23:59 | disposition home or self-care (01) ==
LOC: INF 04:00
PROVIDERS: PCP Nurse Practitioner Family; Visit Provider Nurse Practitioner Family
DX: M81.0 Age-related osteoporosis without current pathological fracture (principal)
CPT/HCPCS: 96365; J3489

== ENCOUNTER 2024-06-15 13:37 | Outpatient (CLI) | payer MEDICARE, SELFPAY ==
--- NOTE | 2024-06-15 10:42 | DI.RAD_ITS ---
Exam(s) XR KNEE RT 2V AP,LAT EXAM: XR KNEE RT 2V AP,LAT CLINICAL HISTORY: YEARLY F/U BILAT TKR. TECHNIQUE: 2D digital imaging was performed. Two images were obtained. AP and lateral views were ob tained. COMPARISON: CR XR KNEE RT 1V from 07/01/2023 CR XR STANDING ALIGNMENT from 07/01/2023 FINDINGS: BONES: There are stable post operative changes of a right total knee replacement present. No fractur e or dislocation. JOINTS: The orthopedic hardware is in good position. No evidence of hardware loosening. There again seen densities in the soft tissues inferior to the patella. They appear to be anterior and medially located. SOFT TISSUE: Normal. IMPRESSION: Stable right total knee replacement. DATA REPOSITORY: RADIATION DOSE DELIVERED:
--- NOTE | 2024-06-15 10:42 | DI.RAD_ITS ---
Exam(s) XR KNEE LT 2V AP,LAT EXAM: XR KNEE LT 2V AP,LAT INDICATION: YEARLY F/U BILAT TKR. COMPARISON: CR XR KNEE RT 1V from 07/01/2023 CR XR STANDING ALIGNMENT from 07/01/2023 CR XR KNEE LT 1V from 07/01/2023 CR XR KNEE RT 2V AP,LAT from 06/15/2024 TECHNIQUE: 2D digital imaging was performed. Two views. FINDINGS: There has been no change in the alignment of the total knee prosthesis. There are no abnormal surrou nding bony lucencies. No joint effusion is visible. Impression: Stable appearance of total knee prosthesis. DATA REPOSITORY: RADIATION DOSE DELIVERED:
== END 2024-06-15 13:38 | disposition home or self-care (01) ==
LOC: DIORS 13:38
PROVIDERS: PCP Nurse Practitioner Family; Referring Provider Nurse Practitioner Family; Visit Provider Physician Assistant
DX: Z47.1 Aftercare following joint replacement surgery (principal); Z96.651 Presence of right artificial knee joint; Z96.652 Presence of left artificial knee joint
CPT/HCPCS: 99213; 73560

== ENCOUNTER → 2024-08-14 13:41 | Outpatient (BNVA) | payer MEDICARE, SELFPAY | PROVIDERS: PCP Nurse Practitioner Family; Referring Provider Nurse Practitioner Family; Visit Provider Surgery | DX: K64.8 Other hemorrhoids (principal); K64.5 Perianal venous thrombosis; K62.5 Hemorrhage of anus and rectum; K52.9 Noninfective gastroenteritis and colitis, unspecified; I10 Essential (primary) hypertension | CPT/HCPCS: 99214 ==

== ENCOUNTER 2024-08-29 07:45 | Day surgery (SDC) | payer MEDICARE, SELFPAY ==
--- NOTE | 2024-08-28 20:29 | W.PM.DSUDISC ---
Date of service: 08/29/24 Time of Service: 09:33 Discharge Plan Disposition Patient Disposition: Home Condition: Good Discharge Details Reason For Visit: hemorrhoid banding Attending Provider: Marisel Camilo Primary Care Provider: Diana Yao Home Meds and New Rx's Prescriptions: New tramadol 50 mg tablet 50 mg PO Q4H PRNQty: 14 0RF Continued colestipol 1 gram tablet 1 g PO DAILY Qty: 90 4RF omeprazole 20 mg capsule,delayed release(DR/EC) 20 mg PO DAILY Qty: 90 3RF metoprolol tartrate 50 mg tablet 50 - 100 mg PO DAILY Qty: 270 3RF Rx Instructions: 1 tab (50mg) in the morning and 2 tabs (100mg) in the evening allopurinol 100 mg tablet 100 mg PO DAILY Qty: 90 3RF atorvastatin 40 mg tablet 40 mg PO QHS Qty: 90 3RF fluoxetine 10 mg capsule 10 mg PO DAILY Qty: 90 3RF lisinopril 10 mg tablet 10 mg PO DAILY Qty: 90 3RF meloxicam 15 mg tablet 15 mg PO DAILY PRN (Reason: pain) Qty: 90 3RF multivitamin [One Daily Multivitamin] 1 EACH tablet 1 ea PO DAILY cholecalciferol (vitamin D3) 25 mcg (1,000 unit) capsule 25 mcg PO DAILY dibucaine 1 % ointment 1 applic SD QID PRN (Reason: hemorrhoids) Qty: 56 6RF clobetasol 0.05 % ointment 1 applic TP DAILY PRN (Reason: psoriasis) Qty: 60 2RF Rx Instructions: Apply to bilateral elbows and other affected areas once a day as needed for psoriasis calcium carbonate 500 mg calcium (1,250 mg) tablet,chewable 500 mg PO DAILY hydrocortisone acetate 25 mg suppository 25 mg SD DAILY Qty: 24 6RF melatonin 10 mg Tablet 10 mg PO HS psyllium Packet 1 packet PO BID PRN Discharge Instructions Additional Instructions: Home Care Instructions after Rectal Surgery Pain control:? Ibuprofen 600mg 6hrs (take w/ food. Do not take on an empty stomach) and Tylenol 1000mg by mouth (ibuprofen 400-600mg) every 8 hours.? Do not take if you have ulcers or sensitivity to aspirin.? Do not take Tylenol if you have hepatitis or liver failure. Alternate the Tylenol and ibuprofen. ? Take pain meds continuously for the first 72hrs.? After 72hrs, you can take as needed if you are having pain.? How to prevent constipation: The first bowel movement after surgery will be painful. Do not let yourself get constipated. ?It is recommended that you use a fiber supplement (Metamucil, Citrucel) daily (1 tablespoon in 8 oz of water). If you do not have a bowel movement daily, use Milk of Magnesia or Miralax at bedtime. .You may have bleeding or drainage after rectal surgery; especially when you move your bowels. Use a sanitary napkin to collect the discharge. If you are passing large clots or having to change the pad more than every 4 hours, call the clinic or go to the ER. You may experience spasms in the rectal muscles. This is normal after surgery and last for about two weeks. They can become more intense with bowel movements. The best remedy is to soak in a bathtub of plain warm water- no Epsom salts, essential oil or soap.? It takes about 10 minutes further the spasm to stop.? You may want to do this after BM as well. It is ok to shower. Avoid soap on the surgical area. Use a pillow to sit on. Follow a mild bland diet. Avoid alcohol, spicy food, citrus, and tomatoes. Avoid strenuous activity (running, jogging, and power walking, swimming, weight lifting) for two weeks. No lifting over 20 pounds for 2 weeks. Activity:: see above Remove Dressings/Wound Care:: 24 hours Diet:: see above Discharge Orders Discharge Orders: Discharge Order (Routine); Ordered 08/29/24 Ordered By: Marisel Camilo DS: Diagnosis Discharge Diagnosis (1) Essential hypertension: Status: Chronic (2) Hyperlipidemia: Status: Chronic (3) Osteoporosis: Status: Chronic (4) Obesity (BMI 30-39.9): Status: Chronic (5) GERD (gastroesophageal reflux disease): Status: Chronic (6) Internal hemorrhoids: Status: Deleted Asessment and Plan: The patient is doing well post-op from their hemmorrhoid surgery.? They are having no nausea or vomiting. They are tolerating liquids and a snack. The pt is not having any chest pain or SOB.? Their pain is adequately controlled. They have been able to urinate.? ?HEENT:? no eye pain/drainage/redness/swelling. Mild sore throat ?Cardio- NSR, no chest pain, BP stable- see VS record ?Pulm: no sob or productive cough. No hemoptysis ?Incision- dressing is c/d/i w/ no excessive bleeding or drainage ?I discussed with the patient the findings at the time of surgery and the patient?s progress. ?We reviewed expectations at home; what the patient could expect for recovery time, and in the post-operative period.? We discussed the importance of walking to avoid blood clots and pneumonia.? We discussed and reviewed the patient's post-operative wound care and dressing needs.?? We reviewed their step-donovan pain management plan, Rx called to the pharmacy of their choice.? We reviewed activity and limitations-see discharge instructions. We reviewed warning signs, and when to seek medical attention- see d/c instructions.?? Patient was given a postoperative follow-up appointment. Patient verbalized understanding of their postoperative instructions, how do to take care of themselves and their incision, and the pain management plan. Please see discharge instructions.? (7) Gout: Status: Chronic (8) Prediabetes: (9) Incomplete rectal prolapse: Status: Acute (10) Internal and external bleeding hemorrhoids: Status: Acute (11) Chronic diarrhea: Status: Chronic
[2024-08-29] VITALS (29 sets, daily range): BP systolic 83–146; BP diastolic 35–76; PULSE 62–115; RESP 10–45; TEMP 36–36.6; O2SAT 94–99; BMI 38.2
--- NOTE | 2024-08-29 06:48 | ANES.PREOP_ITS ---
General Info Date of Service Date Performed: 08/29/24 Height: 5 ft 0.5 in Weight: 90.378 kg Body Mass Index (BMI): 38.2 Surgical Procedure: Operation Date: 08/29/24 09:40 Proposed Procedure Side Surgeon p Hemorrhoidectomy Marisel Camilo, Meds Allergies and Home Medications Allergies Allergy/AdvReac Type Severity Reaction Status Date / Time Penicillins Allergy Intermediate Rash Verified 08/29/24 08:08 Sulfa (Sulfonamide Allergy Intermediate Skin Rash Verified 08/29/24 08:08 Antibiotics) tetracycline Allergy Intermediate Skin Rash Verified 08/29/24 08:08 nickel Allergy Mild Other (See Verified 08/29/24 08:08 Comment) TDAP AdvReac Intermediate rash at Uncoded 08/29/24 08:08 injection site Home Medication ?Medication ?Instructions ?Recorded multivitamin (One Daily 1 ea PO DAILY 01/12/17 Multivitamin tablet) melatonin 10 mg tablet 10 mg PO HS 04/12/23 psyllium 1 packet PO BID PRN 06/11/23 cholecalciferol (vitamin D3) 25 25 mcg PO DAILY 08/03/23 mcg (1,000 unit) capsule dibucaine 1 % rectal ointment 1 applic NJ QID PRN hemorrhoids 02/20/24 #56 grams allopurinol 100 mg tablet 100 mg PO DAILY #90 tabs 05/22/24 atorvastatin 40 mg tablet 40 mg PO QHS #90 tabs 05/22/24 fluoxetine 10 mg capsule 10 mg PO DAILY #90 caps 05/22/24 lisinopril 10 mg tablet 10 mg PO DAILY #90 tabs 05/22/24 meloxicam 15 mg tablet 15 mg PO DAILY PRN pain #90 tabs 05/22/24 metoprolol tartrate 50 mg tablet 50 - 100 mg (1 - 2 x 50 mg) PO 05/22/24 DAILY #270 tabs omeprazole 20 mg capsule,delayed 20 mg PO DAILY #90 caps 05/22/24 release clobetasol 0.05 % topical ointment 1 applic topical DAILY PRN 07/12/24 psoriasis #60 grams calcium carbonate 500 mg PO DAILY 08/14/24 colestipol 1 gram tablet 1 g PO DAILY #90 tabs 08/14/24 hydrocortisone acetate 25 mg 25 mg NJ DAILY #24 ea 08/15/24 rectal suppository Current Visit Medications: Current Medications Generic Name Dose Route Start Last Admin Trade Name Bernyq PRN Reason Stop Dose Admin Acetaminophen 1,000 mg 08/29/24 06:00 Acetaminophen 500 Mg Tab PO 08/29/24 23:59 PREOP [facility] Gabapentin 600 mg 08/29/24 06:00 Gabapentin 300 Mg Cap PO 08/29/24 23:59 PREOP [facility] Ondansetron HCl 4 mg/ Sodium 52 mls @ 200 mls/hr 08/29/24 09:23 Chloride IVPB 09/28/24 09:22 Q6H PRN PRN Ringer's Solution 1,000 mls @ 80 mls/hr 08/29/24 06:00 IV 08/29/24 23:59 INFUSION [facility] IV Miscellaneous Supplies 1 each 08/29/24 06:00 Iv Access IV 08/29/24 23:59 DIRECTED SHAHID Morphine Sulfate 2 mg 08/29/24 09:23 Morphine 4 Mg/Ml Syr IVP 09/28/24 09:22 Q1H PRN PRN Sodium Biphosphate/Sodium Phosphate 133 ml 08/29/24 06:00 Na Phosphate Enema-Adult 133 Ml Btl NJ 08/30/24 06:01 PREOP [facility] Sodium Chloride 0 ml 08/29/24 06:00 Normal Saline Flush 10 Ml Syr IV 08/29/24 23:59 PRN PRN Sodium Chloride 0 ml 08/29/24 06:00 Normal Saline 10 Ml Vial IJ 08/29/24 23:59 DIRECTED PRN Sterile Water 0 ml 08/29/24 06:00 Water,Injection,Sterile 10 Ml Vial IJ 08/29/24 23:59 DIRECTED PRN Tramadol HCl 50 mg 08/29/24 09:23 Tramadol 50 Mg Tab PO 09/28/24 09:22 Q6H PRN PRN Pain PFSH Active Problems Active Problems: Problem Status Onset Code Essential hypertension Chronic I10 Hyperlipidemia Chronic E78.5 Major depressive disorder, recurrent Chronic F33.9 Osteoporosis Chronic M81.0 Chronic diarrhea Chronic K52.9 GERD (gastroesophageal reflux disease) Chronic K21.9 Gout Chronic M10.9 Essential tremor Chronic G25.0 Internal hemorrhoids Chronic K64.8 Macular degeneration Chronic H35.30 Psoriasis Chronic L40.9 Allergic rhinitis Chronic J30.9 Obesity (BMI 30-39.9) Chronic E66.9 Medical History Medical History Tubular adenoma of colon On 2023 colonosocpy 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 Prediabetes Surgical History Surgical History History of colonoscopy (03/16/24) History of total right knee replacement (06/15/23) as part of a bilateral TKA History of total left knee replacement (06/15/23) as part of a bilateral TKA Status post total bilateral knee replacement (06/15/23) H/O hemorrhoidectomy (03/2023) thrombosed hemorrhoid S/P total hysterectomy and bilateral salpingo-oophorectomy (03/09/23) Hx of cataract surgery S/P cholecystectomy History of carpal tunnel surgery of right wrist (12/29/02) History of carpal tunnel surgery of left wrist (10/31/03) History of total right hip arthroplasty (10/21/18) Tobacco Smoking/Tobacco Use Status: Never Passive smoking exposure: No Alcohol Alcohol Intake: never Substance Use Substance use: Never Substance use type: does not use Prental History History 0 Para Hx # Term Pregnancies Multiple births Hx # Pregnancies Ectopic pregnancies AB induced Hx Number of Living Children AB spontaneous Vital Signs and Lab Results Vital Signs Most Recent Vital Signs in EMR: Temp Pulse Resp BP Pulse Ox 36.4 C L 69 16 146/76 H 98 08/29/24 07:59 08/29/24 07:59 08/29/24 07:59 08/29/24 07:59 08/29/24 07:59 Lab Results Blood Type / Crossmatch: No Data to Display Complete Blood Count: No Data to Display Complete Metabolic Panel: No Data to Display Liver Function Panel: No Data to Display Coagulation Panel: No Data to Display Cardiac Panel: No Data to Display Arterial Blood Gas: No Data to Display Venous Blood Gas: No Data to Display Pancreas Panel: No Data to Display Thyroid Panel: No Data to Display Infectious Disease: No Data to Display Blood Cultures: No Data to Display Toxicology Panel: No Data to Display Anesthesia Assessment and Plan Anesthesia History Personal History: No History of Anesthesia Complications Family History: Other Exercise Tolerance Exercise Tolerance: Metabolic Equivalents>4 Cardiac & Pulmonary Exam Cardiac Exam: Normal S1/S2 Heart Sounds Pulmonary Exam: Clear Bilateral Breath Sounds Implantable Cardiac Device Does patient have a Pacemaker or an ICD?: No Airway Exam Known Difficult Airway: No Mallampati Class: 3 Mouth Opening: Normal (> 3cm) Thyromental Distance: Less than 3 cm Neck Range of Motion: Full ROM Neck Circumference: Normal Teeth Condition: Generalized Poor Dentition, Removable Dentures/Plates Upper and Removable Dentures/Plates Lower Airway Comments: only 4 bottom teeth ASA Classification ASA Score: ASA 2 Emergency Case?: No NPO Status NPO Status: NPO Clears >2 hours, Solids >8 hours Anesthesia Plan Resuscitation Status: Full Code Anesthesia Technique: General Anesthesia Airway Planned: Natural Airway Monitors Used: Standard Monitors Preoperative Comments:: 73 yo female for colo/hem banding. Sig PMHx: HTN (lisinopril, metoprolol), GERD (omeprazole), tremor, never smoker. Previous Anes: - colo, prop, natural airway, no issues. - TKA b, spinal, prop sedation, no issues. - hemorrhoidectomy, midaz, spinal 0.8 mL. - ADELSO, spinal 0.5% 2.6 mL, prop sedation, no issues.
[2024-08-29] MEDS: Na Phosphate Enema-Adult 133 ML BTL PR ×2 (08:22→08:23)
[2024-08-29] MEDS: Acetaminophen 500 MG TAB 1000 MG PO (08:23)
[2024-08-29] MEDS: Gabapentin 300 MG CAP 600 MG PO (08:23)
[2024-08-29] MEDS: Normal Saline Flush 10 ML SYR IV (08:51)
--- NOTE | 2024-08-29 10:10 | HEM_PTH ---
PATIENT: Mary Beth Chand LOC: [facility] U#:[id number] AGE/SX: 73/F ROOM: RE08/29/[address]: Marisel Camilo : 1950 BED: DIS: 08/29/2024 SPEC #: [id number] RECD: 08/29/24 13:02 STATUS: AGUSTIN [facility] #: [id number] CHET: 08/29/24 10:[address]: Marisel Camilo DEPT: Surgical Specimen RECD BY: Shahnaz Scherer ENTERED: 08/29/24 13:03 SP TYPE: Hem OTHR DR: MICHAEL Salvador Tissues: 1 - HEMORRHOIDS 2 - HEMORRHOIDS 3 - HEMORRHOIDS Procedures: GROSS AND MICRO LEVEL 3 Comments: [id number]
[2024-08-29] MEDS: Bupivacaine 0.25% Pres-Free W/EPI 30 ML VIAL (10:41)
[2024-08-29] MEDS: Dibucaine 1% 28 GM TUBE PR (10:42)
--- NOTE | 2024-08-29 11:02 | ROE_ITS ---
Date of service: 08/29/24 Time of Service: 11:02 Operative Note Operative Note DATE OF PROCEDURE: 08/29/24 PRE-OP DIAGNOSIS: Bleeding internal and external hemorrhoids POST-OP DIAGNOSIS: same (And mucosal prolapse) PROCEDURE: Internal and external hemorrhoidectomy times all 3 quadrants and then banding of prolapsed mucosa SURGEON: Marisel Camilo FINISHED CLOTH CHECKER: Jackie Mayfield ANESTHESIA TYPE: Local By Surgeon and General:No Airway Refer to Anesthesia Record ESTIMATED BLOOD LOSS: 30 PATHOLOGY: other COMPLICATIONS: None Patient was transported to: PACU Patient's condition: stable Procedure Description: Hemorrhoidectomy Pt is here today for excision of I/E hemorrhoids.? Informed consent is obtained explaining risks and benefits of the procedure, including but not limited to:? bleeding, infection, pneumonia, blood clots, damage to sphincters resulting in stenosis or loss of control, anesthesia, recurrence, and other unforetold complications. The pt is brought to the operative suite.? Anesthesia is administered per the dept. of anesthesia.? (S)he is than placed in the lithotomy position w/ all bony surfaces padded. The anal/rectal region is prepped and draped in the usual sterile fashion using a Betadine scrub solution.? Timeout and fire safety are performed. 30cc of .25% Marcaine w/ epi is used for local and for a pudendal block, pre proceduraly, and instilled locally into each of the 3 columns. Procedure:? A Murcia anal retractor was inserted to aid in visualization of the hemorrhoids to be operated upon.? Each hemorrhoid was grasped at the mucocuteneous junction with an Allis forceps and retracted.? A stay suture of 4- 0 Prolene was placed distal to the end of the incision.? The skin was incised at the base of the hemorrhoid with a scissors as a V-shape incision. The incision was extended into the mucosa either side of the hemorrhoid, raising it off the muscles of the internal sphincter. The dissection is continued just beyond the dentate line.? All clot was removed prior to closing the defect.? The Defect was then closed with 4-0 Vicryl in a running fashion.? This was repeated for all 3 columns.? She also has 3 areas of mucosal prolapse. And bands are placed on this tissue to try to scar it up into the rectum. The rectum was irrigated.? There is no bleeding noted.? Dibucaine impregnated Gelfoam was inserted into the rectum and sterile dressing is applied.? Patient tolerated procedure well without complication and transferred to recovery room in stable condition.
[2024-08-29] MEDS: fentaNYL 100 MCG/2 ML VIAL IVP ×3 (11:10→11:34)
[2024-08-29] MEDS: Normal Saline 10 ML VIAL IJ (11:10)
--- NOTE | 2024-08-29 11:26 | W.ANESPOSTOP ---
Postoperative Evaluation Date, Time and Location Date Performed: 08/29/24 Time Performed: 11:26 Patient Location: PACU Vital Signs Most Recent Imported Vital Signs: Most Recent Vital Signs Temp Pulse Resp BP Pulse Ox 36.6 C 68 11 L 87/49 L 98 08/29/24 11:23 08/29/24 11:11 08/29/24 11:11 08/29/24 11:11 08/29/24 11:11 Pain Score Most Recent Pain Score: Most Recent Pain Score Pain Level 6 08/29/24 11:23 Assessment Mental Status: Awake (Alert & Oriented to Patient Baseline) Airway and Respiratory Function: Patent airway with normal (patient baseline) respiratory exam Cardiovascular Function: Hemodynamically Stable Hydration Status: Adequately Hydrated Nausea & Vomiting: No Nausea or Vomiting Pain: Pain is Moderate or Severe Postoperative Pain Management: Pain being addressed with medication Peripheral Nerve Block: Patient did not receive a nerve block
== END 2024-08-29 13:39 | disposition home or self-care (01) ==
LOC: SUR 07:46
PROVIDERS: PCP Nurse Practitioner Family; Visit Provider Surgery
PROC: (CPT 46260; principal; 2024-08-29 09:30)
DX: K64.8 Other hemorrhoids (principal); K62.3 Rectal prolapse; K64.4 Residual hemorrhoidal skin tags
CPT/HCPCS: 46260; 88304; J2704; J3010

== ENCOUNTER → 2024-09-25 12:27 | Outpatient (BNVA) | payer MEDICARE, SELFPAY | PROVIDERS: PCP Nurse Practitioner Family; Referring Provider Nurse Practitioner Family; Visit Provider Surgery | DX: Z48.815 Encounter for surgical aftercare following surgery on the digestive system (principal) ==

== ENCOUNTER → 2024-10-30 09:37 | Outpatient (BNVA) | payer MEDICARE, SELFPAY | PROVIDERS: PCP Nurse Practitioner Family; Referring Provider Nurse Practitioner Family; Visit Provider Surgery | DX: Z48.817 Encounter for surgical aftercare following surgery on the skin and subcutaneous tissue (principal); K64.8 Other hemorrhoids ==

== ENCOUNTER 2025-06-04 04:33 | Outpatient (CLI) | payer MEDICARE, SELFPAY ==
[2025-06-04 13:49] LABS: ALT 25 U/L (14-59); AST 24 U/L (15-37); Albumin 3.6 g/dL (3.4-5.0); Alkaline Phosphatase 61 U/L (46-116); Anion Gap 10.3 mmol/L (3-11); BUN 16 mg/dL (7-18); Bilirubin, Total 0.6 mg/dL (0.2-1.0); CO2 26.7 mmol/L (21.0-32.0); Calcium 9.4 mg/dL (8.5-10.1); Calculated LDL 60 mg/dL (<100); Chloride 106 mmol/L (98-107); Cholesterol 163 mg/dL (<200); Estimated GFR 95.31 (mL/min/1.73m2); Glucose 107 mg/dL (74-106); HDL Cholesterol 55 mg/dL (>or=50); Potassium 4.0 mmol/L (3.5-5.1); Sodium 143 mmol/L (136-145); Total Protein 6.9 g/dL (6.4-8.2); Triglyceride 240 mg/dL (<150)
== END 2025-06-04 04:34 | disposition home or self-care (01) ==
LOC: LOS 04:33
PROVIDERS: PCP Nurse Practitioner Family; Visit Provider Nurse Practitioner Family
DX: E78.5 Hyperlipidemia, unspecified (principal); I10 Essential (primary) hypertension
CPT/HCPCS: 36415; 80053; 80061

== ENCOUNTER 2025-06-19 02:39 | Outpatient (RCR) | payer MEDICARE, SELFPAY ==
[2025-06-19] MEDS: Normal Saline Flush 10 ML SYR IVP (12:43)
== END 2025-06-24 23:59 | disposition home or self-care (01) ==
LOC: INF 02:39
PROVIDERS: PCP Nurse Practitioner Family; Visit Provider Nurse Practitioner Family
DX: M81.0 Age-related osteoporosis without current pathological fracture (principal)
CPT/HCPCS: 96365; J3489